=== PATIENT | male | born 1995 | race Caucasian/White ===

== ENCOUNTER 2024-09-20 21:29 | Inpatient (IN) | payer OTHER, SELFPAY ==
[2024-09-20 21:34] VITALS: BP 135/89; PULSE 76; RESP 18; TEMP 37.1; O2SAT 95
--- NOTE | 2024-09-20 21:45 | MHC.EDTECH ---
Patient BIBA and changed over with RN and Security.Vital signs completed. Patient in hospital gown and into [facility]. Belongings secured in POD [employer]OCKER 7. Belongings list completed
[2024-09-20 21:52] VITALS: BP 128/78; PULSE 103; PULSE 80; RESP 18; TEMP 37; O2SAT 100; BMI 25.7
--- NOTE | 2024-09-20 22:04 | PC.NURSE ---
patient reports he is often inconsistent w meds, ems listed off risperdal but client reports olanzapine, hydroxyzine. t/w completed person search/changeover which illustrated no injury to client, no presence of contraband.
[2024-09-21 00:38] LABS: MANUAL DIFF FLAG NO
[2024-09-21 00:41] LABS: Basophils Absolute Auto 0.1 X10*3/uL (0.0-0.2); Basophils Percent Auto 0.4 % (0-2); Eosinophils Absolute Auto 0.1 X10*3/uL (0.0-0.4); Eosinophils Percent Auto 0.4 % (0-4); Hematocrit 46.4 % (42.0-52.0); Hemoglobin 16.1 g/dl (14.0-18.0); Imm Gran Abs Auto 0.04 X10*3/uL (0.00-0.03); Imm Gran Pct Auto 0.3 % (0.0-0.4); Lymphocytes Absolute Auto 2.1 X10*3/uL (1.2-4.9); Lymphocytes Percent Auto 17.1 % (20-40); Mean Corpuscular HGB Conc 34.7 g/dl (31.0-36.0); Mean Corpuscular Hemoglobin 29.5 pg (27.0-33.0); Mean Platelet Volume 10.7 fL (9.4-12.4); Monocytes Absolute Auto 1.1 X10*3/uL (0.1-1.2); Monocytes Percent Auto 8.9 % (2-11); Neutrophils Absolute Auto 8.7 x10*3/uL (2.0-8.3); Neutrophils Percent Auto 72.9 % (45-73); Platelet Count 221 X10*3/uL (160-400); Red Blood Count 5.46 X10*6/uL (4.60-5.80); Red Cell Distribution Width 13.3 % (11.0-16.0)
--- NOTE | 2024-09-21 00:52 | ED_ITS ---
HPI - Psych General Chief Complaint: Psychiatric Symptoms Stated Complaint: SECT. 12, COMBATIVE/AGGRESSIVE @HOME Time Seen by Provider: 09/20/24 22:52 Source: patient and EMS Mode of arrival: EMS Limitations: no limitations History of Present Illness ED Provider: Dr. Zaida Cosme HPI Narrative: Patient comes to the emergency room via section 12 and accompanied by police department. According to PD, patient was very agitated, yelling that he was going to kill his parents. According to the patient, he has not been med compliant for several days. However, patient has not picked up his medications for the last 7 months. Patient denies SI or HI. When I asked the patient about the incident when he was yelling that he was going to hurt his parents, patient said that it was just anger and nonsense Related Data Home Medications ?Medication ?Instructions ?Recorded ?Confirmed hydroxyzine pamoate 50 mg capsule 50 mg PO TID PRN anxiety 09/21/24 09/21/24 olanzapine 7.5 mg tablet 7.5 mg PO BEDTIME 09/21/24 09/21/24 trazodone 50 mg tablet 75 mg PO BEDTIME PRN insomnia 09/21/24 09/21/24 Allergies Allergy/AdvReac Type Severity Reaction Status Date / Time No Known Allergies Allergy Verified 09/20/24 21:56 Review of Systems 2 Review of Systems: Constitutional : No Weight loss, No Fever, No Chills, No Night Sweats, No Fatigue, No Malaise ENT/Mouth : No Hearing loss, No Ear Pain, No Nasal Congestion, No Sinus Pain, No Hoarseness, No sore throat, No Rhinorrhea, No Swallowing Difficulty Eyes: No Eye Pain, No Swelling, No Redness, No Foreign Body, No Discharge, No Vision Changes Cardiovascular : No Chest Pain, No SOB, No Dyspnea on Exertion, No Orthopnea, No Edema, No Palpitations Respiratory : No Cough, No Sputum, No Wheezing, No Smoke Exposure, No Dyspnea Gastrointestinal : No Nausea, No Vomiting, No Diarrhea, No Constipation, No abdominal Pain, No Hematochezia, No Melena Genitourinary : no irregular bleeding, No Dysuria, No Urinary Frequency, No Hematuria, No Urinary Incontinence, No Urgency, No Flank Pain, No Urinary Flow Changes, No Hesitancy Musculoskeletal : No joint pain, No Myalgias, No Joint Swelling Skin : No Skin Lesions, No rash Neuro : No Weakness, No Numbness, No Paresthesias, No Loss of Consciousness, No Dizziness, No Headache Psych : Complaining of anxiety and depression, denies SI or HI. Heme/Lymph: No Bruising, No Bleeding,No Lymphadenopathy Endocrine : No Polyuria, No Polydipsia, No Temperature Intolerance [facility] Social History Social History Advance Directives: No Advance Directives Information Provided: No Do you have a plan to hurt others: No Plan Physical Exam 2 Vital Signs: Vital Signs: Last Vital Signs Temp 98.6 F 09/20/24 21:52 Pulse 103 H 09/20/24 21:52 Resp 18 09/20/24 21:52 BP 128/78 09/20/24 21:52 Pulse Ox 100 09/20/24 21:52 O2 Del Method Room Air 09/20/24 21:52 BMI result Body Mass Index 25.7 Const: Other: Appearance: Alert. Oriented X3. No acute distress. Calm, cooperative Eyes: Pupils equal, round and reactive to light. ENT: Pharynx normal. Neck: Normal inspection. Neck supple. No lymph nodes noted. No crepitus CVS: Normal heart rate and rhythm. Pulses normal. Normal S1 and S2 Respiratory: No respiratory distress. Breath sounds normal. No Wheezing. No rales Abdomen: Soft and nontender. No rigidity. No distention. Skin: Skin warm and dry. Normal skin color. Normal skin turgor. Extremities: No lower extremity edema. No Lacerations. No Rash Neuro: Oriented X 3. No motor deficit. No sensory deficit. Moving all extremities. No slurred speech. CN 2 through 12 grossly intact Psych: calm, cooperative, normal affect Medical Decision Making Medical Decision Making [facility] Narrative: My interpretation of labs: Patient's white blood cell count 12.0, rest of hematology normal. Urine toxicology positive for marijuana -care team consult evaluated the patient 01:50: Recommendations: Inpatient for schizophrenia -patient is on a Section 12 -sign out given to my colleage Dr. Orozco - Differential Diagnosis Differential Diagnoses: The differential diagnosis associated with the presentation includes (Anxiety, depression, polysubstance abuse, psychosis, schizophrenia) Admission/Observation Consideration of admission/observation: Escalation of care including admission/observation considered (Patient is on a Section 12, waiting to be seen by the care team to determine patient's disposition) Lab Data [facility] Lab Attestation statement: I reviewed the patient's lab results. 09/21/24 00:33 09/21/24 00:33 Labs: Lab Results 09/21/24 Range/Units 00:33 WBC 12.0 H (4.8-10.8) X10*3/uL RBC 5.46 (4.60-5.80) X10*6/uL Hgb 16.1 (14.0-18.0) g/dl Hct 46.4 (42.0-52.0) % MCV 85.0 (80.0-98.0) fL MCH 29.5 (27.0-33.0) pg MCHC 34.7 (31.0-36.0) g/dl RDW 13.3 (11.0-16.0) % Plt Count 221 (160-400) X10*3/uL MPV 10.7 (9.4-12.4) fL Immature Gran % (Auto) 0.3 (0.0-0.4) % Neut % (Auto) 72.9 (45-73) % Lymph % (Auto) 17.1 L (20-40) % [place] % (Auto) 8.9 (2-11) % Eos % (Auto) 0.4 (0-4) % Baso % (Auto) 0.4 (0-2) % Lymph # (Auto) 2.1 (1.2-4.9) X10*3/uL [place] # (Auto) 1.1 (0.1-1.2) X10*3/uL Eos # (Auto) 0.1 (0.0-0.4) X10*3/uL Baso # (Auto) 0.1 (0.0-0.2) X10*3/uL Abs Immat Gran (auto) 0.04 H (0.00-0.03) X10*3/uL Absolute Neuts (auto) 8.7 H (2.0-8.3) x10*3/uL Absolute Nucleated RBC 0.000 (0.0-0.012) X10*3/uL Nucleated RBC % (auto) 0.0 (0.0-0.2) /100WBC Sodium 141 (135-145) mmol/L Potassium 4.1 (3.3-5.1) mmol/L Chloride 108 (96-108) mmol/L Carbon Dioxide 23 (22-29) mmol/L Anion Gap 14 (12-20) BUN 6 L (9-16) mg/dL Creatinine 0.85 (0.5-1.4) mg/dL Estim Creat Clear Calc 144.9 Estimated GFR > 60 Random Glucose 79 (60-115) mg/dL Calcium 9.9 (8.4-10.2) mg/dL Total Bilirubin 2.3 H (0.0-1.0) mg/dL AST 19 (5-37) U/L ALT 10 (0-40) U/L Alkaline Phosphatase 64 (39-117) U/L Total Protein 7.4 (6.5-8.0) g/dL Albumin 4.5 (3.5-5.0) g/dL Salicylates < 5.0 L (15-30) mg/dL Urine Opiates Screen Not Detected (Not Detect) Ur Buprenorphine Scrn Not Detected (Not Detect) ng/mL Ur Oxycodone Screen Not Detected (Not Detect) ng/mL Urine Methadone Screen Not Detected (Not Detect) ng/mL Urine Fentanyl Screen Not Detected (Not Detect) Acetaminophen < 3 (<30) mcg/mL Ur Barbiturates Screen Not Detected (Not Detect) Ur Phencyclidine Scrn Not Detected (Not Detect) Ur Amphetamines Screen Not Detected (Not Detect) U Benzodiazepines Scrn Not Detected (Not Detect) Urine Cocaine Screen Not Detected (Not Detect) U Marijuana (THC) Screen POSITIVE H (Not Detect) Ethyl Alcohol < 10 mg/dL Critical Care Time Critical Care Time Critical Care Time: Yes Total Critical Care Time: 30 Attestation: I have personally provided critical care time. Time includes review of lab data, radiology results, discussion with consultants, and monitoring for potential decompensation. Intervention performed as documented. Discharge Plan Discharge Clinical Impression: Noncompliance with medications, Schizophrenia Patient Disposition: Still a Patient Prescriptions: No Action trazodone 50 mg tablet 75 mg PO BEDTIME PRN (Reason: insomnia) hydroxyzine pamoate 50 mg capsule 50 mg PO TID PRN (Reason: anxiety) olanzapine 7.5 mg tablet 7.5 mg PO BEDTIME Interventions: Apex-Suicide Risk Severity Scale Last Done: 09/20/24 22:55 Print Language: Mongolian
[2024-09-21 00:53] LABS: Amphetamine Screen Urine Not Detected (Not Detect); Barbiturates, Urine Not Detected (Not Detect); Benzodiazepines Screen Urine Not Detected (Not Detect); Buprenorphine Scr Not Detected (Not Detect); Cannabinoid Screen Urine POSITIVE (Not Detect); Cocaine Screen Urine Not Detected (Not Detect); Fentanyl, urine Not Detected (Not Detect); Methadone Screen, Urine Not Detected (Not Detect); Opiate Screen Urine Not Detected (Not Detect); Oxycodone Screen Urine Not Detected (Not Detect); Phencyclidine Screen Urine Not Detected (Not Detect)
[2024-09-21 00:57] LABS: Acetaminophen LAB < 3 mcg/mL (<30); Alanine Aminotransferase 10 U/L (0-40); Albumin Level 4.5 g/dL (3.5-5.0); Alkaline Phosphatase 64 U/L (39-117); Anion Gap 14 (12-20); Aspartate Amino Transferase 19 U/L (5-37); Bilirubin Total 2.3 mg/dL (0.0-1.0); Blood Urea Nitrogen 6 mg/dL (9-16); Calcium 9.9 mg/dL (8.4-10.2); Carbon Dioxide 23 mmol/L (22-29); Chloride 108 mmol/L (96-108); Creatinine Clr Calc Pharmacy 144.9; Estimated Glomerular Filt Rate > 60; Ethanol < 10 mg/dL; Glucose Random 79 mg/dL (60-115); Potassium 4.1 mmol/L (3.3-5.1); Salicylate < 5.0 mg/dL (15-30); Sodium 141 mmol/L (135-145); Total Protein 7.4 g/dL (6.5-8.0)
[2024-09-21] MEDS: traZODone HCL 50 MG TABLET PO ×2 (01:54→21:47)
[2024-09-21] MEDS: Nicotine Polacrilex 2 MG GUM BUCCAL ×2 (02:07→21:46)
--- NOTE | 2024-09-21 08:04 | ECG_ITS ---
Test Reason : PRE-ADMISSION Blood Pressure : / mmHG Vent. Rate : 052 BPM Atrial Rate : 052 BPM P-R Int : 140 ms QRS Dur : 094 ms QT Int : 414 ms P-R-T Axes : 029 029 013 degrees QTc Int : 385 ms Artifact in tracing Sinus bradycardia Otherwise normal ECG No previous ECGs available Referred By: Zaida Cosme Electronically Signed By:JORDY ARMENDARIZ
[2024-09-21 08:23] LABS: Appearance Urine Clear; Color Urine Yellow; Glucose Urine UA Negative (Negative); Leukocyte Esterase Urine Negative (Negative); Nitrite Urine Negative (Negative); PH 7.5 (5.0-9.0); Specific Gravity - Urine 1.015 (1.005-1.025); Urine Blood Negative (Negative); Urine Ketones 15 mg/dL (Negative); Urine Protein Trace mg/dL (Neg-Trace)
--- NOTE | 2024-09-21 08:24 | PHA.MEDREC ---
Pharmacy Consult ? Medication Reconciliation Pharmacy has completed the medication reconciliation, reviewed mec rec completed by nursing, all claims matched hx.
[2024-09-21 08:33] VITALS: BP 128/67; PULSE 53; RESP 16; TEMP 36.6; O2SAT 97
--- NOTE | 2024-09-21 10:21 | PC.NURSE ---
Pt has been calm and cooperative. Took AM meds w/o difficulty. Eating well. NAD. Denies SI at this time.
--- NOTE | 2024-09-21 11:22 | PC.NURSE ---
Assumed care of patient at 1045, patient appears to be in no apparent distress, sitting in room in 2, ambulated out to nurses station asking for water. patient aware of plan of care for inpatient bedsearch
[2024-09-21 15:14] VITALS: BP 142/87; PULSE 71; RESP 18; TEMP 36.6; O2SAT 97
[2024-09-21 17:50] VITALS: BP 152/76; PULSE 53; RESP 16; TEMP 36.4; O2SAT 98
[2024-09-21 18:24] VITALS: BMI 21.2
--- NOTE | 2024-09-21 19:01 | PC.ADMIT ---
Ciro is a 28 y/o male that was admitted to at 1750 from the Pod on 12b? for treatment of schizophrenia. Pt is currently unemployed and lives at home with his parents. Per crisis evaluation pt had vague SI and endorsed AH. Pt has a hx of IPOC at [facility] and multiple times in the past two years.? Pt was brought to the ER via ambulance after sec 12 via police/EMS. Pt was threatening to kill his parents. Pt has been medication non compliant for several days. Pt was not taking his olanzapine. Pt reported he was brought here because he was ?yelling loud nonsense in the bathroom?.Pt was A&O, calm and cooperative with admission process. Mood is anxious. Affect is anxious. Pt withdrawn and kept to self. Pt has hx of AH but currently denied,? denied VH. Pt denied SI or HI at this time. Pt denied self harming behaviors. Pt reported ?I don?t remember having any of those.? Pt reported normal weight at 215lb pt weighed 187lb, unsure of time span of weight loss, reported it was intentional, Pt was internally preoccupied and would look over his shoulder. Pt reported frequent lack of sleep and having trouble falling asleep. Pt had poor Focus. Pt avoided eye contact. Pt speech is pressured at times. At times thought blocked. Pt spoke quietly and pressured. Pt mumbled and was difficult to understand. Tox Screen was positive for THC, daily cannabis use. Pt was placed on 15 min checks for safety. Pt cooperative w/ skin check. Pt denied any medical issues.
[2024-09-21 20:00] VITALS: BP 134/69; PULSE 92; RESP 14; TEMP 36.7; O2SAT 96
[2024-09-22 07:40] VITALS: BP 107/57; PULSE 54; RESP 14; TEMP 36.4; O2SAT 97
--- NOTE | 2024-09-22 08:03 | HO.PSYADMNOT ---
HPI Date of Service: 09/22/24 Chief Complaint: Paranoid Agitation Sources of Information: patient interviewed, chart reviewed and crisis/core team assessment reviewed HPI Subjective Notes: Baldwin Warning and Section 12B Narrative: As per ED Note 09/20/24: Patient comes to the emergency room via section 12 and accompanied by police department. According to PD, patient was very agitated, yelling that he was going to kill his parents. According to the patient, he has not been med compliant for several days. However, patient has not picked up his medications for the last 7 months. Patient denies SI or HI. When I asked the patient about the incident when he was yelling that he was going to hurt his parents, patient said that it was just anger and nonsense Today: Presents as internally preoccupied, guarded, paranoid and endorses AH they say funny things sometimes (denied command). Also makes unusual hand gestures at times. Adamantly denies SI or HI I can say mean things sometimes, but not that . Ref admission circumstances I was a little loud taking a shower. Saying a bunch of nonsense . Unable to fully elaborate amd is thought disordered at times. Reports olanzapine 7.5mg in the past as needed if I cant sleep , has not taken x 1 week (noted ED notes ref scripts not picked up). Trazodone is helpful. Does not want to take olanzapine scheduled, but aware it will be offered in case he changes his mind. Past Psychiatric History: Chart- diagnosis of SCZ as per CARES team eval. Pt very guarded ref details. Denied history of silvestre, suicide attempts or violence. ?CHD services years ago . Inpt history but reluctant to discuss details or history- same with meds. Reports olanzapine 7.5mg in the past as needed if I cant sleep , has not taken x 1 week (noted ED notes ref scripts not picked up). Trazodone is helpful Medical Evaluation Reviewed: Yes [facility] Social History: Lives with parents and 2 adult siblings (27 and 23). Last worked at [employer] in Spring 2023. Single. No children. Denied legal issues. Substance History: denied. MJ positive Diagnostics Vital Signs (24Hr): Vital Signs - 24 hr 09/21/24 08:33 09/21/24 15:14 09/21/24 17:50 Temperature 97.8 F 98 F 97.6 F Pulse Rate 53 71 53 Respiratory Rate 16 18 16 Blood Pressure 128/67 142/87 H 152/76 H Pulse Oximetry 97 97 98 Oxygen Delivery Method Room Air Room Air Room Air 09/21/24 20:00 Temperature 98.0 F Pulse Rate 92 Respiratory Rate 14 Blood Pressure 134/69 Pulse Oximetry 96 Oxygen Delivery Method Room Air BMI result Body Mass Index 21.2 Labs 09/21/24 00:33 09/22/24 08:36 Labs: Laboratory Results - last 48 hr 09/21/24 00:33 WBC 12.0 H RBC 5.46 Hgb 16.1 Hct 46.4 MCV 85.0 MCH 29.5 MCHC 34.7 RDW 13.3 Plt Count 221 MPV 10.7 Immature Gran % (Auto) 0.3 Neut % (Auto) 72.9 Lymph % (Auto) 17.1 L [place] % (Auto) 8.9 Eos % (Auto) 0.4 Baso % (Auto) 0.4 Lymph # (Auto) 2.1 [place] # (Auto) 1.1 Eos # (Auto) 0.1 Baso # (Auto) 0.1 Abs Immat Gran (auto) 0.04 H Absolute Neuts (auto) 8.7 H Absolute Nucleated RBC 0.000 Nucleated RBC % (auto) 0.0 Sodium 141 Potassium 4.1 Chloride 108 Carbon Dioxide 23 Anion Gap 14 BUN 6 L Creatinine 0.85 Estim Creat Clear Calc 144.9 Estimated GFR > 60 Random Glucose 79 Calcium 9.9 Total Bilirubin 2.3 H AST 19 ALT 10 Alkaline Phosphatase 64 Total Protein 7.4 Albumin 4.5 Urine Color Yellow Urine Appearance Clear Urine pH 7.5 Ur Specific [place] 1.015 Urine Protein Trace Urine Glucose (UA) Negative Urine Ketones 15 Urine Blood Negative Urine Nitrite Negative Ur Leukocyte Esterase Negative Salicylates < 5.0 L Urine Opiates Screen Not Detected Ur Buprenorphine Scrn Not Detected Ur Oxycodone Screen Not Detected Urine Methadone Screen Not Detected Urine Fentanyl Screen Not Detected Acetaminophen < 3 Ur Barbiturates Screen Not Detected Ur Phencyclidine Scrn Not Detected Ur Amphetamines Screen Not Detected U Benzodiazepines Scrn Not Detected Urine Cocaine Screen Not Detected U Marijuana (THC) Screen POSITIVE H Ethyl Alcohol < 10 Meds/Allergies Meds Home Medications ?Medication ?Instructions ?Recorded ?Confirmed ?Type hydroxyzine pamoate 50 mg capsule 50 mg PO TID PRN anxiety 09/21/24 09/21/24 History olanzapine 7.5 mg tablet 7.5 mg PO BEDTIME 09/21/24 09/21/24 History trazodone 50 mg tablet 75 mg PO BEDTIME PRN insomnia 09/21/24 09/21/24 History Allergies Allergies Allergy/AdvReac Type Severity Reaction Status Date / Time No Known Allergies Allergy Verified 09/20/24 21:56 Mental Status Exam Mental Status Exam Patient Appearance: Appropriate Patient Orientation: Person, Place, Time and Situation Level of Consciousness: Awake Patient Behavior: Guarded Mood Description: Suspicious, Withdrawn and Flat Affect Description: Suspicious, Withdrawn and Flat Patient Cognition Impaired: No Ability to Follow Directions: Fair Speech Pattern: Mumbled Memory Description: Intact Hallucinations: Auditory Delusions: Paranoid Ideation (appears paranoid and guarded) Thought Process: Intact Thought Content: positive for Intact Judgement: Poor Assessment & Plan Assessment & Plan (1) Schizophrenia: Status: Acute Code(s): F20.9 - Schizophrenia, unspecified Plan Presents with paranoia, hallucinations, HI and agitation in context of med non adherence and established diagnosis of SCZ. Plan: 1) S12 and Baldwin warning 2) Offer olanzapine 7.5mg bedtime and trazodone 75mg Patient educated on: medication risk/benefits Informed Consent: understands Reason for continued inpatient stay Substantial Risk for: harm to others Statement Statement: I have reviewed the history and physical and performed a pertinent examination on my patient. No changes have occurred unless specified. If the History and Physical was not performed prior to admission, the Hospitalist's service will be consulted for completing the admission physical. Time Spent With Patient Time: Total time managing care of this patient today ____ minutes.
[2024-09-22 09:11] LABS: Alanine Aminotransferase 13 U/L (0-40); Albumin Level 4.6 g/dL (3.5-5.0); Alkaline Phosphatase 62 U/L (39-117); Anion Gap 15 (12-20); Aspartate Amino Transferase 16 U/L (5-37); Bilirubin Total 2.2 mg/dL (0.0-1.0); Blood Urea Nitrogen 9 mg/dL (9-16); Calcium 10.2 mg/dL (8.4-10.2); Carbon Dioxide 25 mmol/L (22-29); Chloride 106 mmol/L (96-108); Cholesterol 158 mg/dL (<200); Creatinine Clr Calc Pharmacy 116.8; Estimated Glomerular Filt Rate > 60; Glucose Fasting 106 mg/dL (60-99); HDL Cholesterol 58 mg/dL (>40); LDL Cholesterol Calculated 79 mg/dL (<100); Potassium 4.1 mmol/L (3.3-5.1); Sodium 142 mmol/L (135-145); Total Protein 7.8 g/dL (6.5-8.0); Triglycerides 109 mg/dL (<150)
[2024-09-22] MEDS: Nicotine Polacrilex 2 MG GUM BUCCAL ×4 (11:31→20:45)
[2024-09-22 20:00] VITALS: BP 142/74; PULSE 51; RESP 16; TEMP 36.9; O2SAT 99
[2024-09-22] MEDS: traZODone HCL 25 MG HALFTAB 75 MG PO (21:59)
[2024-09-23 07:45] VITALS: BP 110/58; PULSE 58; RESP 16; TEMP 36.4; O2SAT 96
--- NOTE | 2024-09-23 10:26 | P.PNPSI_ITS ---
Subjective Subjective Date of Service: 09/23/24 Reason For Visit: Paranoid Agitation Subjective Notes: Section 12B Interim History: [address] [address] Psychiatry Admission Note (In) Signed Patient: Ciro Britt MR#: [id number] : 1995 Acct:[id number] Declining olanzapine. Accepts trazodone. Intense and internally preoccupied, guarded, paranoid. Slept in sensory room. Did not want to discuss AH today. Adamantly denies SI or HI Medication Compliance: No Side effects from medications: No Attending Groups: No Review of Systems Acute medical concerns: No Review of Systems Review of Systems Yes all other systems are reviewed and are negative Mental Status Exam Mental Status Exam Patient Appearance: Appropriate Patient Orientation: Person, Place, Time and Situation Level of Consciousness: Awake Patient Behavior: Guarded Mood Description: Suspicious, Withdrawn and Flat Affect Description: Suspicious, Withdrawn and Flat Patient Cognition Impaired: No Ability to Follow Directions: Fair Speech Pattern: Mumbled Memory Description: Intact Diagnostics Vital Signs (24Hr): Vital Signs - 24 hr 09/22/24 20:00 09/23/24 07:45 Temperature 98.5 F 97.6 F Pulse Rate 51 58 Respiratory Rate 16 16 Blood Pressure 142/74 H 110/58 L Pulse Oximetry 99 96 Oxygen Delivery Method Room Air Room Air BMI result Body Mass Index 21.2 Labs 09/21/24 00:33 09/22/24 08:36 Labs: Laboratory Results - last 48 hr 09/22/24 08:36 Sodium 142 Potassium 4.1 Chloride 106 Carbon Dioxide 25 Anion Gap 15 BUN 9 Creatinine 0.91 Estim Creat Clear Calc 116.8 Estimated GFR > 60 Fasting Glucose 106 H Calcium 10.2 Total Bilirubin 2.2 H AST 16 ALT 13 Alkaline Phosphatase 62 Total Protein 7.8 Albumin 4.6 Triglycerides 109 Cholesterol 158 LDL Cholesterol, Calc 79 HDL Cholesterol 58 Medications Medications Current Medications Acetaminophen (Acetaminophen 325 Mg Tablet) 650 mg PO Q6H PRN PRN Reason: Headache/Pain Mild Scale (1-3) Al Hydroxide/Mg Hydroxide (Magnesium Hydrox/Alum Hydrox 30 Ml Oral.Susp) 30 ml PO Q6H PRN PRN Reason: Heartburn/Nausea Hydroxyzine HCl (Hydroxyzine Hcl 50 Mg Tablet) 50 mg PO TID PRN PRN Reason: anxiety Hydroxyzine HCl (Hydroxyzine Hcl 25 Mg Tablet) 25 mg PO Q6H PRN PRN Reason: Anxiety Lorazepam (Lorazepam 1 Mg Tablet) 1 mg PO Q4H PRN PRN Reason: anxiety/restlessness Magnesium Hydroxide (Milk Of Magnesia 30 Ml Oral.Susp) 30 ml PO DAILY PRN PRN Reason: Constipation Nicotine (Nicotine 14 Mg Patch.Td24) 14 mg TRANSDERMA DAILY PRN PRN Reason: Nicotine Cravings Nicotine Polacrilex (Nicotine Polacrilex 2 Mg Gum) 2 mg BUCCAL QID PRN PRN Reason: Nicotine Cravings Last Admin: 09/22/24 20:45 Dose: 2 mg Nicotine Polacrilex (Nicotine Polacrilex 2 Mg Gum) 2 mg BUCCAL Q2H PRN PRN Reason: Nicotine Cravings Last Admin: 09/22/24 17:54 Dose: 2 mg Olanzapine (Olanzapine 7.5 Mg Tablet) 7.5 mg PO BEDTIME CRISS Last Admin: 09/22/24 22:01 Dose: Not Given Olanzapine (Olanzapine 5 Mg Tablet) 5 mg PO BID PRN PRN Reason: Psychosis Trazodone HCl (Trazodone Hcl 25 Mg Halftab) 75 mg PO BEDTIME PRN PRN Reason: insomnia Last Admin: 09/22/24 21:59 Dose: 75 mg Trazodone HCl (Trazodone Hcl 50 Mg Tablet) 50 mg PO BEDTIME MRX1 PRN PRN Reason: Insomnia Last Admin: 09/21/24 21:47 Dose: 50 mg Allergies Allergies Allergy/AdvReac Type Severity Reaction Status Date / Time No Known Allergies Allergy Verified 09/20/24 21:56 Assessment & Plan Assessment & Plan (1) Schizophrenia: Status: Acute Code(s): F20.9 - Schizophrenia, unspecified Plan Presents with paranoia, hallucinations, HI and agitation in context of med non adherence and established diagnosis of SCZ. Plan: 1) S12 and Baldwin warning 2) Offer olanzapine 7.5mg bedtime and trazodone 75mg 09/23/24: encourage adherence to olanzapine 7.5mg bedtime Reason for continued inpatient stay Substantial Risk for: harm to others Time Spent With Patient Time: Total time managing care of this patient today ____ minutes.
[2024-09-23] MEDS: Nicotine Polacrilex 2 MG GUM BUCCAL (19:59)
[2024-09-23 20:35] VITALS: BP 128/71; PULSE 54; RESP 16; TEMP 36.9; O2SAT 97
[2024-09-24] MEDS: traZODone HCL 25 MG HALFTAB 75 MG PO (01:19)
[2024-09-24 07:30] VITALS: BP 121/60; PULSE 63; RESP 14; TEMP 36.4; O2SAT 98
--- NOTE | 2024-09-24 15:24 | MHC.CLN ---
NUTRITION CONSULT FOR RECENT WEIGHT LOSS. VISITED WITH PATIENT ON THE UNIT. ASKED ABOUT CURRENT WEIGHT/WEIGHT LOSS. REPORTS WEIGHT ABOUT 185#. APPEARS WELL NOURISHED AND SUSPECT THAT IS APPROX CURRENT WEIGHT. 09/21/24=152#; 09/20/24=195#. ERROR LIKELY IN RECENT RECORDED WEIGHT. LIMITED CONVERSATION DUE TO PATIENT'S ANXIETY. NO DIET CONCERNS EXPRESSED BY PATIENT. CONTINUE REGULAR DIET.
[2024-09-24] MEDS: Nicotine Polacrilex 2 MG GUM BUCCAL (16:47)
--- NOTE | 2024-09-24 16:58 | HO.PSYCHPN ---
Subjective Subjective Date of Service: 09/24/24 Reason For Visit: Paranoid Agitation Subjective Notes: Section 12B Healthcare Proxy: No Interim History: Pt seen in psych f/u chart reviewed. Pt does not wish to sign cv does not feel he needs psychiatric medication refusing olanzapine discussed sec 12 reminded pt of baldwin warning and differnet options . pt denies si hi will not take anything except trazadone . Mostly isolative Medication Compliance: Intermittent Mental Status Exam Mental Status Exam Patient Appearance: Appropriate Patient Orientation: Person, Place, Time and Situation Level of Consciousness: Awake Patient Behavior: Guarded Mood Description: Suspicious, Withdrawn and Flat Affect Description: Suspicious, Withdrawn and Flat Patient Cognition Impaired: No Ability to Follow Directions: Fair Speech Pattern: Mumbled Memory Description: Intact Diagnostics Vital Signs (24Hr): Vital Signs - 24 hr 09/23/24 20:35 09/24/24 07:30 Temperature 98.4 F 97.5 F Pulse Rate 54 63 Respiratory Rate 16 14 Blood Pressure 128/71 121/60 Pulse Oximetry 97 98 Oxygen Delivery Method Room Air Room Air BMI result Body Mass Index 21.2 Labs 09/21/24 00:33 09/22/24 08:36 Medications Medications Current Medications Acetaminophen (Acetaminophen 325 Mg Tablet) 650 mg PO Q6H PRN PRN Reason: Headache/Pain Mild Scale (1-3) Al Hydroxide/Mg Hydroxide (Magnesium Hydrox/Alum Hydrox 30 Ml Oral.Susp) 30 ml PO Q6H PRN PRN Reason: Heartburn/Nausea Hydroxyzine HCl (Hydroxyzine Hcl 50 Mg Tablet) 50 mg PO TID PRN PRN Reason: anxiety Hydroxyzine HCl (Hydroxyzine Hcl 25 Mg Tablet) 25 mg PO Q6H PRN PRN Reason: Anxiety Lorazepam (Lorazepam 1 Mg Tablet) 1 mg PO Q4H PRN PRN Reason: anxiety/restlessness Magnesium Hydroxide (Milk Of Magnesia 30 Ml Oral.Susp) 30 ml PO DAILY PRN PRN Reason: Constipation Nicotine (Nicotine 14 Mg Patch.Td24) 14 mg TRANSDERMA DAILY PRN PRN Reason: Nicotine Cravings Nicotine Polacrilex (Nicotine Polacrilex 2 Mg Gum) 2 mg BUCCAL QID PRN PRN Reason: Nicotine Cravings Last Admin: 09/23/24 19:59 Dose: 2 mg Nicotine Polacrilex (Nicotine Polacrilex 2 Mg Gum) 2 mg BUCCAL Q2H PRN PRN Reason: Nicotine Cravings Last Admin: 09/24/24 16:47 Dose: 2 mg Olanzapine (Olanzapine 5 Mg Tablet) 5 mg PO BID PRN PRN Reason: Psychosis Olanzapine (Olanzapine 10 Mg Tablet) 10 mg PO BEDTIME CRISS Trazodone HCl (Trazodone Hcl 25 Mg Halftab) 75 mg PO BEDTIME PRN PRN Reason: insomnia Last Admin: 09/24/24 01:19 Dose: 75 mg Trazodone HCl (Trazodone Hcl 50 Mg Tablet) 50 mg PO BEDTIME MRX1 PRN PRN Reason: Insomnia Last Admin: 09/21/24 21:47 Dose: 50 mg Allergies Allergies Allergy/AdvReac Type Severity Reaction Status Date / Time No Known Allergies Allergy Verified 09/20/24 21:56 Assessment & Plan Assessment & Plan (1) Schizophrenia: Status: Acute Code(s): F20.9 - Schizophrenia, unspecified Plan Presents with paranoia, hallucinations, HI and agitation in context of med non adherence and established diagnosis of SCZ. Plan: 1) S12 and Baldwin warning 2) Offer olanzapine 7.5mg bedtime and trazodone 75mg 09/23/24: encourage adherence to olanzapine 7.5mg bedtime 09/24/24 No current insight isolative mumbling refusing medication for psychosis Reason for continued inpatient stay Substantial Risk for: harm to others and inability to function Time Spent With Patient Time: Total time managing care of this patient today ____ minutes.
[2024-09-24 20:00] VITALS: BP 124/70; PULSE 55; RESP 16; TEMP 36.9; O2SAT 97
[2024-09-24] MEDS: traZODone HCL 50 MG TABLET PO (22:54)
[2024-09-25 07:33] VITALS: BP 116/68; PULSE 52; RESP 16; TEMP 36.4; O2SAT 98
--- NOTE | 2024-09-25 09:54 | HO.PSYCHPN ---
Subjective Subjective Date of Service: 09/25/24 Reason For Visit: Paranoid Agitation Subjective Notes: Section 12B Healthcare Proxy: No Medical Problems Affecting Mental Status: No Interim History: Patient remains on a section 12 B attempts to reach his parents have not succeeded initially and pt remains isolated guarded mumbling to himself refusing olanzapine. His father did state that he felt his son was quite ill had difficult time taking care of himself , needed to be watched felt he was at risk of harm and that pt had threatened to harm them . Pt does not agree to tx Medication Compliance: No Side effects from medications: No Mental Status Exam Mental Status Exam Patient Orientation: Person and Place Level of Consciousness: Awake Patient Behavior: Guarded, Passive and Suspicious Mood Description: Suspicious, Withdrawn, Flat and Apprehensive Affect Description: Suspicious, Withdrawn and Flat Patient Cognition Impaired: No Ability to Follow Directions: Fair Speech Pattern: Whisper, Mumbled and Poor Articulation Hallucinations: Auditory (would not describe ) Perceptual Disturbances: Illusions Thought Process: Distracted and Slowed Thinking Thought Content: positive for Thought Blocking, negative for Suicidal Ideation or negative for Homicidal Ideation Depressive Symptoms: Increased Anxiety Abnormal Motor Activity Signs and Symptoms: Psychomotor Retardation Judgement: Poor Judgement and Insight: very limited informationally explained legal status pt cannot really describe what happened prior to adm becomes digressive TB internally preoccupied Diagnostics Vital Signs (24Hr): Vital Signs - 24 hr 09/24/24 20:00 09/25/24 07:33 Temperature 98.4 F 97.5 F Pulse Rate 55 52 Respiratory Rate 16 16 Blood Pressure 124/70 116/68 Pulse Oximetry 97 98 Oxygen Delivery Method Room Air BMI result Body Mass Index 21.2 Labs 09/21/24 00:33 09/22/24 08:36 Medications Medications Current Medications Acetaminophen (Acetaminophen 325 Mg Tablet) 650 mg PO Q6H PRN PRN Reason: Headache/Pain Mild Scale (1-3) Al Hydroxide/Mg Hydroxide (Magnesium Hydrox/Alum Hydrox 30 Ml Oral.Susp) 30 ml PO Q6H PRN PRN Reason: Heartburn/Nausea Hydroxyzine HCl (Hydroxyzine Hcl 50 Mg Tablet) 50 mg PO TID PRN PRN Reason: anxiety Hydroxyzine HCl (Hydroxyzine Hcl 25 Mg Tablet) 25 mg PO Q6H PRN PRN Reason: Anxiety Lorazepam (Lorazepam 1 Mg Tablet) 1 mg PO Q4H PRN PRN Reason: anxiety/restlessness Magnesium Hydroxide (Milk Of Magnesia 30 Ml Oral.Susp) 30 ml PO DAILY PRN PRN Reason: Constipation Nicotine (Nicotine 14 Mg Patch.Td24) 14 mg TRANSDERMA DAILY PRN PRN Reason: Nicotine Cravings Nicotine Polacrilex (Nicotine Polacrilex 2 Mg Gum) 2 mg BUCCAL QID PRN PRN Reason: Nicotine Cravings Last Admin: 09/23/24 19:59 Dose: 2 mg Nicotine Polacrilex (Nicotine Polacrilex 2 Mg Gum) 2 mg BUCCAL Q2H PRN PRN Reason: Nicotine Cravings Last Admin: 09/24/24 16:47 Dose: 2 mg Olanzapine (Olanzapine 5 Mg Tablet) 5 mg PO BID PRN PRN Reason: Psychosis Olanzapine (Olanzapine 10 Mg Tablet) 10 mg PO BEDTIME CRISS Last Admin: 09/24/24 22:53 Dose: Not Given Trazodone HCl (Trazodone Hcl 25 Mg Halftab) 75 mg PO BEDTIME PRN PRN Reason: insomnia Last Admin: 09/24/24 01:19 Dose: 75 mg Trazodone HCl (Trazodone Hcl 50 Mg Tablet) 50 mg PO BEDTIME MRX1 PRN PRN Reason: Insomnia Last Admin: 09/24/24 22:54 Dose: 50 mg Allergies Allergies Allergy/AdvReac Type Severity Reaction Status Date / Time No Known Allergies Allergy Verified 09/20/24 21:56 Assessment & Plan Assessment & Plan (1) Schizophrenia: Status: Acute Code(s): F20.9 - Schizophrenia, unspecified (2) Chronic schizophrenia with acute exacerbation: Status: Acute Code(s): F20.9 - Schizophrenia, unspecified (3) Noncompliance with medications: Status: Acute Code(s): Z91.148 - Patient's other noncompliance with medication regimen for other reason Plan Presents with paranoia, hallucinations, HI and agitation in context of med non adherence and established diagnosis of SCZ. Plan: 1) S12 and Baldwin warning 2) Offer olanzapine 7.5mg bedtime and trazodone 75mg 09/23/24: encourage adherence to olanzapine 7.5mg bedtime 09/24/24 No current insight isolative mumbling refusing medication for psychosis 09/25/24 Was able to get secondary info from father pt had been threatening also quite disorganized mumbling difficulty taking care of himself does not recognize his psychiatric condition or need for tx will most likely file for commitment encourage tx compliance Reason for continued inpatient stay Substantial Risk for: harm to others, inability to function and rapid decompensation Time Spent With Patient Time: Total time managing care of this patient today ____ minutes.
[2024-09-25] MEDS: Nicotine Polacrilex 2 MG GUM BUCCAL ×2 (16:05→22:24)
[2024-09-25 20:00] VITALS: BP 132/62; PULSE 65; RESP 16; TEMP 36.3; O2SAT 96
[2024-09-25] MEDS: traZODone HCL 50 MG TABLET PO (22:15)
[2024-09-25] MEDS: LORazepam 1 MG TABLET PO (22:19)
[2024-09-26 08:00] VITALS: BP 113/57; PULSE 61; RESP 14; TEMP 36.3; O2SAT 97
--- NOTE | 2024-09-26 11:00 | HO.PSYCHPN ---
Subjective Subjective Date of Service: 09/26/24 Reason For Visit: Paranoid Agitation Subjective Notes: Section 7 Healthcare Proxy: No Interim History: Patient seen psychiatric follow-up. Case reviewed extensively with treatment team. Information reviewed from patient's family regarding potential dangerousness and behavior prior to admission. Patient adamantly continues to want to be discharged very limited informationally Will not engage regarding treatment issues does appear to understand legal process Mental Status Exam Mental Status Exam Narrative: Patient casually dressed somewhat isolative limited engagement was able to state that he wants to leave the hospital did not feel he needed psychiatric treatment had no real explanations regarding behavior prior to admission threats bizarre behavior has not been aggressive or threatening in this setting does admit to hallucinations but will not engage regarding this somewhat anxious and flat denies SI HI Diagnostics Vital Signs (24Hr): Vital Signs - 24 hr 09/25/24 20:00 09/26/24 08:00 Temperature 97.4 F 97.4 F Pulse Rate 65 61 Respiratory Rate 16 14 Blood Pressure 132/62 113/57 L Pulse Oximetry 96 97 Oxygen Delivery Method Room Air Room Air BMI result Body Mass Index 21.2 Labs 09/21/24 00:33 09/22/24 08:36 Medications Medications Current Medications Acetaminophen (Acetaminophen 325 Mg Tablet) 650 mg PO Q6H PRN PRN Reason: Headache/Pain Mild Scale (1-3) Al Hydroxide/Mg Hydroxide (Magnesium Hydrox/Alum Hydrox 30 Ml Oral.Susp) 30 ml PO Q6H PRN PRN Reason: Heartburn/Nausea Hydroxyzine HCl (Hydroxyzine Hcl 25 Mg Tablet) 25 mg PO Q6H PRN PRN Reason: Anxiety Lorazepam (Lorazepam 1 Mg Tablet) 1 mg PO Q4H PRN PRN Reason: anxiety/restlessness Last Admin: 09/25/24 22:19 Dose: 1 mg Magnesium Hydroxide (Milk Of Magnesia 30 Ml Oral.Susp) 30 ml PO DAILY PRN PRN Reason: Constipation Nicotine (Nicotine 14 Mg Patch.Td24) 14 mg TRANSDERMA DAILY PRN PRN Reason: Nicotine Cravings Nicotine Polacrilex (Nicotine Polacrilex 2 Mg Gum) 2 mg BUCCAL QID PRN PRN Reason: Nicotine Cravings Last Admin: 09/25/24 22:24 Dose: 2 mg Nicotine Polacrilex (Nicotine Polacrilex 2 Mg Gum) 2 mg BUCCAL Q2H PRN PRN Reason: Nicotine Cravings Last Admin: 09/24/24 16:47 Dose: 2 mg Olanzapine (Olanzapine 5 Mg Tablet) 5 mg PO BID PRN PRN Reason: Psychosis Olanzapine (Olanzapine 10 Mg Tablet) 10 mg PO BEDTIME CRISS Last Admin: 09/25/24 20:41 Dose: Not Given Trazodone HCl (Trazodone Hcl 25 Mg Halftab) 75 mg PO BEDTIME PRN PRN Reason: insomnia Last Admin: 09/24/24 01:19 Dose: 75 mg Allergies Allergies Allergy/AdvReac Type Severity Reaction Status Date / Time No Known Allergies Allergy Verified 09/20/24 21:56 Assessment & Plan Assessment & Plan (1) Schizophrenia: Status: Acute Code(s): F20.9 - Schizophrenia, unspecified (2) Chronic schizophrenia with acute exacerbation: Status: Acute Code(s): F20.9 - Schizophrenia, unspecified (3) Noncompliance with medications: Status: Acute Code(s): Z91.148 - Patient's other noncompliance with medication regimen for other reason Plan Presents with paranoia, hallucinations, HI and agitation in context of med non adherence and established diagnosis of SCZ. Plan: 1) S12 and Baldwin warning 2) Offer olanzapine 7.5mg bedtime and trazodone 75mg 09/23/24: encourage adherence to olanzapine 7.5mg bedtime 09/24/24 No current insight isolative mumbling refusing medication for psychosis 09/25/24 Was able to get secondary info from father pt had been threatening also quite disorganized mumbling difficulty taking care of himself does not recognize his psychiatric condition or need for tx will most likely file for commitment encourage tx compliance 09/26/[address]work filled out for court filing both mother and patient's father reports disorganized intrusive bizarre behavior intrusive with individuals yellows yelling screaming threatening grossly disorganized File for civil commitment and treatment plan family supportive Reason for continued inpatient stay Substantial Risk for: harm to others, inability to function and rapid decompensation Time Spent With Patient Time: Total time managing care of this patient today ____ minutes.
[2024-09-26] MEDS: LORazepam 1 MG TABLET PO ×2 (15:44→21:22)
[2024-09-26 19:05] VITALS: BP 116/64; PULSE 78; RESP 18; TEMP 36.3; O2SAT 98
[2024-09-26] MEDS: traZODone HCL 25 MG HALFTAB 75 MG PO (21:22)
[2024-09-27 07:00] VITALS: BMI 26.0
[2024-09-27 08:00] VITALS: BP 115/60; PULSE 71; RESP 18; TEMP 36.2; O2SAT 96
--- NOTE | 2024-09-27 10:38 | P.PNPSI_ITS ---
Subjective Subjective Date of Service: 09/27/24 Reason For Visit: Paranoid Agitation Subjective Notes: Section 7 Guardianship: No Interim History: Patient withdrawn isolative minimal engagement continues to refuse any antipsychotic medication Difficult to engage with does not feel has any mental illness does not wish outpatient treatment Mental Status Exam Mental Status Exam Narrative: Patient casually dressed guarded with thought blocking poverty of content mood anxious restricted affect denies hallucinations poverty of content thought blocking noted is focused on not having a mental illness or needing medication insight severely limited impulse control intact in this setting Diagnostics Vital Signs (24Hr): Vital Signs - 24 hr 09/26/24 19:05 09/27/24 08:00 Temperature 97.4 F 97.1 F Pulse Rate 78 71 Respiratory Rate 18 18 Blood Pressure 116/64 115/60 Pulse Oximetry 98 96 Oxygen Delivery Method Room Air Room Air BMI result Body Mass Index 21.2 Labs 09/21/24 00:33 09/22/24 08:36 Medications Medications Current Medications Acetaminophen (Acetaminophen 325 Mg Tablet) 650 mg PO Q6H PRN PRN Reason: Headache/Pain Mild Scale (1-3) Al Hydroxide/Mg Hydroxide (Magnesium Hydrox/Alum Hydrox 30 Ml Oral.Susp) 30 ml PO Q6H PRN PRN Reason: Heartburn/Nausea Hydroxyzine HCl (Hydroxyzine Hcl 25 Mg Tablet) 25 mg PO Q6H PRN PRN Reason: Anxiety Lorazepam (Lorazepam 1 Mg Tablet) 1 mg PO Q4H PRN PRN Reason: anxiety/restlessness Last Admin: 09/26/24 21:22 Dose: 1 mg Magnesium Hydroxide (Milk Of Magnesia 30 Ml Oral.Susp) 30 ml PO DAILY PRN PRN Reason: Constipation Nicotine (Nicotine 14 Mg Patch.Td24) 14 mg TRANSDERMA DAILY PRN PRN Reason: Nicotine Cravings Nicotine Polacrilex (Nicotine Polacrilex 2 Mg Gum) 2 mg BUCCAL QID PRN PRN Reason: Nicotine Cravings Last Admin: 09/25/24 22:24 Dose: 2 mg Nicotine Polacrilex (Nicotine Polacrilex 2 Mg Gum) 2 mg BUCCAL Q2H PRN PRN Reason: Nicotine Cravings Last Admin: 09/24/24 16:47 Dose: 2 mg Olanzapine (Olanzapine 5 Mg Tablet) 5 mg PO BID PRN PRN Reason: Psychosis Olanzapine (Olanzapine 10 Mg Tablet) 10 mg PO BEDTIME CRISS Last Admin: 09/26/24 21:24 Dose: Not Given Paliperidone (Paliperidone Er 3 Mg Tab.Er.24) 3 mg PO DAILY CRISS Trazodone HCl (Trazodone Hcl 25 Mg Halftab) 75 mg PO BEDTIME PRN PRN Reason: insomnia Last Admin: 09/26/24 21:22 Dose: 75 mg Allergies Allergies Allergy/AdvReac Type Severity Reaction Status Date / Time No Known Allergies Allergy Verified 09/20/24 21:56 Assessment & Plan Assessment & Plan (1) Schizophrenia: Status: Acute Code(s): F20.9 - Schizophrenia, unspecified (2) Chronic schizophrenia with acute exacerbation: Status: Acute Code(s): F20.9 - Schizophrenia, unspecified (3) Noncompliance with medications: Status: Acute Code(s): Z91.148 - Patient's other noncompliance with medication regimen for other reason Plan Presents with paranoia, hallucinations, HI and agitation in context of med non adherence and established diagnosis of SCZ. Plan: 1) S12 and Baldwin warning 2) Offer olanzapine 7.5mg bedtime and trazodone 75mg 09/23/24: encourage adherence to olanzapine 7.5mg bedtime 09/24/24 No current insight isolative mumbling refusing medication for psychosis 09/25/24 Was able to get secondary info from father pt had been threatening also quite disorganized mumbling difficulty taking care of himself does not recognize his psychiatric condition or need for tx will most likely file for commitment encourage tx compliance 09/26/2024 [address]work filled out for court filing both mother and patient's father reports disorganized intrusive bizarre behavior intrusive with individuals yellows yelling screaming threatening grossly disorganized File for civil commitment and treatment plan family supportive 09/27/2024 Encourage therapeutic [place] have prescribed Invega with hope of eventually long-acting injectable patient continues guarded apprehensive poor insight and judgment Reason for continued inpatient stay Substantial Risk for: inability to function and rapid decompensation Time Spent With Patient Time: Total time managing care of this patient today ____ minutes.
[2024-09-27 20:00] VITALS: BP 137/79; PULSE 67; RESP 16; TEMP 36.7; O2SAT 97
[2024-09-27] MEDS: LORazepam 1 MG TABLET PO (20:00)
[2024-09-27] MEDS: Nicotine Polacrilex 2 MG GUM BUCCAL (20:00)
[2024-09-28 07:43] VITALS: BP 116/57; PULSE 77; RESP 16; TEMP 36.9; O2SAT 99
[2024-09-28] MEDS: Nicotine Polacrilex 2 MG GUM BUCCAL (15:21)
[2024-09-28] MEDS: LORazepam 1 MG TABLET PO (15:25)
[2024-09-28 20:04] VITALS: BP 118/79; PULSE 80; TEMP 35.9; O2SAT 98
--- NOTE | 2024-09-28 22:13 | P.PNPSI_ITS ---
Subjective Subjective Date of Service: 09/28/24 Reason For Visit: Paranoid Agitation Subjective Notes: Section 7 Guardianship: No Interim History: Patient withdrawn isolative minimal engagement continues to refuse any antipsychotic medication generally isolated not engaging Mental Status Exam Mental Status Exam Narrative: Patient casually dressed anxious in appearance restricted affect poverty of content thought blocking minimally informational insight severely limited impulse control intact in this setting no gross si hi Diagnostics Vital Signs (24Hr): Vital Signs - 24 hr 09/28/24 07:43 09/28/24 20:04 Temperature 98.5 F 96.7 F L Pulse Rate 77 80 Respiratory Rate 16 Blood Pressure 116/57 L 118/79 Pulse Oximetry 99 98 Oxygen Delivery Method Room Air Room Air BMI result Body Mass Index 26.0 Labs 09/21/24 00:33 09/22/24 08:36 Medications Medications Current Medications Acetaminophen (Acetaminophen 325 Mg Tablet) 650 mg PO Q6H PRN PRN Reason: Headache/Pain Mild Scale (1-3) Al Hydroxide/Mg Hydroxide (Magnesium Hydrox/Alum Hydrox 30 Ml Oral.Susp) 30 ml PO Q6H PRN PRN Reason: Heartburn/Nausea Hydroxyzine HCl (Hydroxyzine Hcl 25 Mg Tablet) 25 mg PO Q6H PRN PRN Reason: Anxiety Lorazepam (Lorazepam 1 Mg Tablet) 1 mg PO Q4H PRN PRN Reason: anxiety/restlessness Last Admin: 09/28/24 15:25 Dose: 1 mg Magnesium Hydroxide (Milk Of Magnesia 30 Ml Oral.Susp) 30 ml PO DAILY PRN PRN Reason: Constipation Olanzapine (Olanzapine 5 Mg Tablet) 5 mg PO BID PRN PRN Reason: Psychosis Paliperidone (Paliperidone Er 3 Mg Tab.Er.24) 3 mg PO DAILY CRISS Last Admin: 09/28/24 08:56 Dose: Not Given Trazodone HCl (Trazodone Hcl 25 Mg Halftab) 75 mg PO BEDTIME PRN PRN Reason: insomnia Last Admin: 09/26/24 21:22 Dose: 75 mg Allergies Allergies Allergy/AdvReac Type Severity Reaction Status Date / Time No Known Allergies Allergy Verified 09/20/24 21:56 Assessment & Plan Assessment & Plan (1) Schizophrenia: Status: Acute Code(s): F20.9 - Schizophrenia, unspecified (2) Chronic schizophrenia with acute exacerbation: Status: Acute Code(s): F20.9 - Schizophrenia, unspecified (3) Noncompliance with medications: Status: Acute Code(s): Z91.148 - Patient's other noncompliance with medication regimen for other reason Plan Presents with paranoia, hallucinations, HI and agitation in context of med non adherence and established diagnosis of SCZ. Plan: 1) S12 and Baldwin warning 2) Offer olanzapine 7.5mg bedtime and trazodone 75mg 09/23/24: encourage adherence to olanzapine 7.5mg bedtime 09/24/24 No current insight isolative mumbling refusing medication for psychosis 09/25/24 Was able to get secondary info from father pt had been threatening also quite disorganized mumbling difficulty taking care of himself does not recognize his psychiatric condition or need for tx will most likely file for commitment encourage tx compliance 09/26/20[address]work filled out for court filing both mother and patient's father reports disorganized intrusive bizarre behavior intrusive with individuals yellows yelling screaming threatening grossly disorganized File for civil commitment and treatment plan family supportive 09/27/2024 Encourage therapeutic [place] have prescribed Invega with hope of eventually long-acting injectable patient continues guarded apprehensive poor insight and judgment 09/28/24 encourage tx compliance encourage invega Reason for continued inpatient stay Substantial Risk for: inability to function and rapid decompensation Time Spent With Patient Time: Total time managing care of this patient today ____ minutes.
[2024-09-29 07:35] VITALS: BP 123/77; PULSE 54; RESP 14; TEMP 36.5; O2SAT 97
--- NOTE | 2024-09-29 11:32 | P.PNPSI_ITS ---
Subjective Subjective Date of Service: 09/29/24 Reason For Visit: Paranoid Agitation Interim History: Patient withdrawn isolative minimal engagement. Guarded and paranoid. Spends time alone in the sensory room with the lights off. He appears tense, anxious and internally preoccupied. Vague and circumstantial answers as to reason for admission and refusal of medications. Review of Systems Review of Systems Constitutional : No Weight loss, No Fever, No Chills, No Night Sweats, No Fatigue, No Malaise ENT/Mouth : No Hearing loss, No Ear Pain, No Nasal Congestion, No Sinus Pain, No Hoarseness, No sore throat, No Rhinorrhea, No Swallowing Difficulty Eyes: No Eye Pain, No Swelling, No Redness, No Foreign Body, No Discharge, No Vision Changes Cardiovascular : No Chest Pain, No SOB, No Dyspnea on Exertion, No Orthopnea, No Edema, No Palpitations Respiratory : No Cough, No Sputum, No Wheezing, No Smoke Exposure, No Dyspnea Gastrointestinal : No Nausea, No Vomiting, No Diarrhea, No Constipation, No abdominal Pain, No Hematochezia, No Melena Genitourinary : no irregular bleeding, No Dysuria, No Urinary Frequency, No Hematuria, No Urinary Incontinence, No Urgency, No Flank Pain, No Urinary Flow Changes, No Hesitancy Musculoskeletal : No joint pain, No Myalgias, No Joint Swelling Skin : No Skin Lesions, No rash Neuro : No Weakness, No Numbness, No Paresthesias, No Loss of Consciousness, No Dizziness, No Headache Psych : Complaining of anxiety and depression, denies SI or HI. Heme/Lymph: No Bruising, No Bleeding,No Lymphadenopathy Endocrine : No Polyuria, No Polydipsia, No Temperature Intolerance Yes all other systems are reviewed and are negative Mental Status Exam Mental Status Exam Narrative: Patient casually dressed anxious in appearance restricted affect poverty of content thought blocking minimally informational insight severely limited impulse control intact in this setting no gross si hi Patient Appearance: Appropriate Patient Orientation: Person and Place Level of Consciousness: Awake Patient Behavior: Guarded, Passive and Suspicious Mood Description: Suspicious, Withdrawn, Flat and Apprehensive Affect Description: Suspicious, Withdrawn and Flat Patient Cognition Impaired: No Ability to Follow Directions: Fair Speech Pattern: Whisper, Mumbled and Poor Articulation Memory Description: Intact Diagnostics Vital Signs (24Hr): Vital Signs - 24 hr 09/28/24 20:04 09/29/24 07:35 Temperature 96.7 F L 97.7 F Pulse Rate 80 54 Respiratory Rate 14 Blood Pressure 118/79 123/77 Pulse Oximetry 98 97 Oxygen Delivery Method Room Air Room Air BMI result Body Mass Index 26.0 Labs 09/21/24 00:33 09/22/24 08:36 Medications Medications Current Medications Acetaminophen (Acetaminophen 325 Mg Tablet) 650 mg PO Q6H PRN PRN Reason: Headache/Pain Mild Scale (1-3) Al Hydroxide/Mg Hydroxide (Magnesium Hydrox/Alum Hydrox 30 Ml Oral.Susp) 30 ml PO Q6H PRN PRN Reason: Heartburn/Nausea Hydroxyzine HCl (Hydroxyzine Hcl 25 Mg Tablet) 25 mg PO Q6H PRN PRN Reason: Anxiety Lorazepam (Lorazepam 1 Mg Tablet) 1 mg PO Q4H PRN PRN Reason: anxiety/restlessness Last Admin: 09/28/24 15:25 Dose: 1 mg Magnesium Hydroxide (Milk Of Magnesia 30 Ml Oral.Susp) 30 ml PO DAILY PRN PRN Reason: Constipation Olanzapine (Olanzapine 5 Mg Tablet) 5 mg PO BID PRN PRN Reason: Psychosis Paliperidone (Paliperidone Er 3 Mg Tab.Er.24) 3 mg PO DAILY CRISS Last Admin: 09/29/24 09:08 Dose: Not Given Trazodone HCl (Trazodone Hcl 25 Mg Halftab) 75 mg PO BEDTIME PRN PRN Reason: insomnia Last Admin: 09/26/24 21:22 Dose: 75 mg Allergies Allergies Allergy/AdvReac Type Severity Reaction Status Date / Time No Known Allergies Allergy Verified 09/20/24 21:56 Assessment & Plan Assessment & Plan (1) Schizophrenia: Status: Acute Code(s): F20.9 - Schizophrenia, unspecified (2) Chronic schizophrenia with acute exacerbation: Status: Acute Code(s): F20.9 - Schizophrenia, unspecified (3) Noncompliance with medications: Status: Acute Code(s): Z91.148 - Patient's other noncompliance with medication regimen for other reason Plan Presents with paranoia, hallucinations, HI and agitation in context of med non adherence and established diagnosis of SCZ. Plan: 1) S12 and Baldwin warning 2) Offer olanzapine 7.5mg bedtime and trazodone 75mg 09/23/24: encourage adherence to olanzapine 7.5mg bedtime 09/24/24 No current insight isolative mumbling refusing medication for psychosis 09/25/24 Was able to get secondary info from father pt had been threatening also quite disorganized mumbling difficulty taking care of himself does not recognize his psychiatric condition or need for tx will most likely file for commitment encourage tx compliance 09/26/20[address]work filled out for court filing both mother and patient's father reports disorganized intrusive bizarre behavior intrusive with individuals yellows yelling screaming threatening grossly disorganized File for civil commitment and treatment plan family supportive 09/27/2024 Encourage therapeutic [place] have prescribed Invega with hope of eventually long-acting injectable patient continues guarded apprehensive poor insight and judgment 09/28/24 encourage tx compliance encourage invega 09/29: Continues psychotic and refusing treatment. Continue current management and treatment plan. Reason for continued inpatient stay Substantial Risk for: harm to others, inability to function and rapid decompensation Time Spent With Patient Time: Total time managing care of this patient today ____ minutes.
[2024-09-29] MEDS: LORazepam 1 MG TABLET PO (18:50)
[2024-09-29 19:27] VITALS: BP 160/92; PULSE 72; RESP 16; TEMP 36.7; O2SAT 97
[2024-09-30 07:37] VITALS: BP 114/71; PULSE 72; RESP 16; TEMP 36.2; O2SAT 98
--- NOTE | 2024-09-30 11:23 | P.PNPSI_ITS ---
Subjective Subjective Date of Service: 09/30/24 Reason For Visit: Paranoid Agitation Interim History: Patient withdrawn isolative minimal engagement. Patient continues guarded and paranoid.Appears anxious, Intermittent, fleeting and avoidant eye contact. Spends time alone in the sensory room with the lights off. He appears tense, anxious and internally preoccupied. Refusing Invega in AM. I just don't think it will do anything. Remains psychotic. Review of Systems Review of Systems Constitutional : No Weight loss, No Fever, No Chills, No Night Sweats, No Fatigue, No Malaise ENT/Mouth : No Hearing loss, No Ear Pain, No Nasal Congestion, No Sinus Pain, No Hoarseness, No sore throat, No Rhinorrhea, No Swallowing Difficulty Eyes: No Eye Pain, No Swelling, No Redness, No Foreign Body, No Discharge, No Vision Changes Cardiovascular : No Chest Pain, No SOB, No Dyspnea on Exertion, No Orthopnea, No Edema, No Palpitations Respiratory : No Cough, No Sputum, No Wheezing, No Smoke Exposure, No Dyspnea Gastrointestinal : No Nausea, No Vomiting, No Diarrhea, No Constipation, No abdominal Pain, No Hematochezia, No Melena Genitourinary : no irregular bleeding, No Dysuria, No Urinary Frequency, No Hematuria, No Urinary Incontinence, No Urgency, No Flank Pain, No Urinary Flow Changes, No Hesitancy Musculoskeletal : No joint pain, No Myalgias, No Joint Swelling Skin : No Skin Lesions, No rash Neuro : No Weakness, No Numbness, No Paresthesias, No Loss of Consciousness, No Dizziness, No Headache Psych : Complaining of anxiety and depression, denies SI or HI. Heme/Lymph: No Bruising, No Bleeding,No Lymphadenopathy Endocrine : No Polyuria, No Polydipsia, No Temperature Intolerance Yes all other systems are reviewed and are negative Mental Status Exam Mental Status Exam Narrative: Patient casually dressed anxious in appearance restricted affect poverty of content thought blocking minimally informational insight severely limited impulse control intact in this setting no gross si hi Patient Appearance: Appropriate Patient Orientation: Person and Place Level of Consciousness: Awake Patient Behavior: Guarded, Passive and Suspicious Mood Description: Suspicious, Withdrawn, Flat and Apprehensive Affect Description: Suspicious, Withdrawn and Flat Patient Cognition Impaired: No Ability to Follow Directions: Fair Speech Pattern: Whisper, Mumbled and Poor Articulation Memory Description: Intact Diagnostics Vital Signs (24Hr): Vital Signs - 24 hr 09/29/24 19:27 09/30/24 07:37 Temperature 98.0 F 97.2 F Pulse Rate 72 72 Respiratory Rate 16 16 Blood Pressure 160/92 H 114/71 Pulse Oximetry 97 98 Oxygen Delivery Method Room Air Room Air BMI result Body Mass Index 26.0 Labs 09/21/24 00:33 09/22/24 08:36 Medications Medications Current Medications Acetaminophen (Acetaminophen 325 Mg Tablet) 650 mg PO Q6H PRN PRN Reason: Headache/Pain Mild Scale (1-3) Al Hydroxide/Mg Hydroxide (Magnesium Hydrox/Alum Hydrox 30 Ml Oral.Susp) 30 ml PO Q6H PRN PRN Reason: Heartburn/Nausea Hydroxyzine HCl (Hydroxyzine Hcl 25 Mg Tablet) 25 mg PO Q6H PRN PRN Reason: Anxiety Lorazepam (Lorazepam 1 Mg Tablet) 1 mg PO Q4H PRN PRN Reason: anxiety/restlessness Last Admin: 09/29/24 18:50 Dose: 1 mg Magnesium Hydroxide (Milk Of Magnesia 30 Ml Oral.Susp) 30 ml PO DAILY PRN PRN Reason: Constipation Olanzapine (Olanzapine 5 Mg Tablet) 5 mg PO BID PRN PRN Reason: Psychosis Paliperidone (Paliperidone Er 3 Mg Tab.Er.24) 3 mg PO DAILY CRISS Last Admin: 09/30/24 08:23 Dose: Not Given Trazodone HCl (Trazodone Hcl 25 Mg Halftab) 75 mg PO BEDTIME PRN PRN Reason: insomnia Last Admin: 09/26/24 21:22 Dose: 75 mg Allergies Allergies Allergy/AdvReac Type Severity Reaction Status Date / Time No Known Allergies Allergy Verified 09/20/24 21:56 Assessment & Plan Assessment & Plan (1) Schizophrenia: Status: Acute Code(s): F20.9 - Schizophrenia, unspecified (2) Chronic schizophrenia with acute exacerbation: Status: Acute Code(s): F20.9 - Schizophrenia, unspecified (3) Noncompliance with medications: Status: Acute Code(s): Z91.148 - Patient's other noncompliance with medication regimen for other reason Plan Presents with paranoia, hallucinations, HI and agitation in context of med non adherence and established diagnosis of SCZ. Plan: 1) S12 and [place] warning 2) Offer olanzapine 7.5mg bedtime and trazodone 75mg 09/23/24: encourage adherence to olanzapine 7.5mg bedtime 09/24/24 No current insight isolative mumbling refusing medication for psychosis 09/25/24 Was able to get secondary info from father pt had been threatening also quite disorganized mumbling difficulty taking care of himself does not recognize his psychiatric condition or need for tx will most likely file for commitment encourage tx compliance 09/26/2024 [address]work filled out for court filing both mother and patient's father reports disorganized intrusive bizarre behavior intrusive with individuals yellows yelling screaming threatening grossly disorganized File for civil commitment and treatment plan family supportive 09/27/2024 Encourage therapeutic [place] have prescribed Invega with hope of eventually long-acting injectable patient continues guarded apprehensive poor insight and judgment 09/28/24 encourage tx compliance encourage invega 09/29: Continues psychotic and refusing treatment. Continue current management and treatment plan. 09/30: Encourage adherence. Reason for continued inpatient stay Substantial Risk for: harm to others, inability to function and rapid decompensation Time Spent With Patient Time: Total time managing care of this patient today ____ minutes.
[2024-09-30 20:00] VITALS: BP 137/90; PULSE 74; RESP 16; TEMP 36.5; O2SAT 97
[2024-09-30] MEDS: LORazepam 1 MG TABLET PO (22:21)
[2024-10-01 08:00] VITALS: BP 115/68; PULSE 72; RESP 14; TEMP 36.6; O2SAT 98
--- NOTE | 2024-10-01 16:10 | HO.PSYCHPN ---
Subjective Subjective Date of Service: 10/01/24 Reason For Visit: Paranoid Agitation Subjective Notes: Conditional Voluntary Interim History: Pt reports he is not crazy, I am just anxious. He denies SI/HI. He denies hearing voices. He reports he just want to go home He is mostly in sensory room, guarded, appears internally preoccupied. declines taking paliperidone Medication Compliance: No Review of Systems Review of Systems Constitutional : No Weight loss, No Fever, No Chills, No Night Sweats, No Fatigue, No Malaise ENT/Mouth : No Hearing loss, No Ear Pain, No Nasal Congestion, No Sinus Pain, No Hoarseness, No sore throat, No Rhinorrhea, No Swallowing Difficulty Eyes: No Eye Pain, No Swelling, No Redness, No Foreign Body, No Discharge, No Vision Changes Cardiovascular : No Chest Pain, No SOB, No Dyspnea on Exertion, No Orthopnea, No Edema, No Palpitations Respiratory : No Cough, No Sputum, No Wheezing, No Smoke Exposure, No Dyspnea Gastrointestinal : No Nausea, No Vomiting, No Diarrhea, No Constipation, No abdominal Pain, No Hematochezia, No Melena Genitourinary : no irregular bleeding, No Dysuria, No Urinary Frequency, No Hematuria, No Urinary Incontinence, No Urgency, No Flank Pain, No Urinary Flow Changes, No Hesitancy Musculoskeletal : No joint pain, No Myalgias, No Joint Swelling Skin : No Skin Lesions, No rash Neuro : No Weakness, No Numbness, No Paresthesias, No Loss of Consciousness, No Dizziness, No Headache Psych : Complaining of anxiety and depression, denies SI or HI. Heme/Lymph: No Bruising, No Bleeding,No Lymphadenopathy Endocrine : No Polyuria, No Polydipsia, No Temperature Intolerance Yes all other systems are reviewed and are negative Mental Status Exam Mental Status Exam Narrative: Patient casually dressed anxious in appearance restricted affect poverty of content thought blocking minimally informational insight severely limited impulse control intact in this setting no gross si hi Diagnostics Vital Signs (24Hr): Vital Signs - 24 hr 09/30/24 20:00 10/01/24 08:00 Temperature 97.7 F 97.9 F Pulse Rate 74 72 Respiratory Rate 16 14 Blood Pressure 137/90 H 115/68 Pulse Oximetry 97 98 Oxygen Delivery Method Room Air Room Air BMI result Body Mass Index 26.0 Labs 09/21/24 00:33 09/22/24 08:36 Medications Medications Current Medications Acetaminophen (Acetaminophen 325 Mg Tablet) 650 mg PO Q6H PRN PRN Reason: Headache/Pain Mild Scale (1-3) Al Hydroxide/Mg Hydroxide (Magnesium Hydrox/Alum Hydrox 30 Ml Oral.Susp) 30 ml PO Q6H PRN PRN Reason: Heartburn/Nausea Hydroxyzine HCl (Hydroxyzine Hcl 25 Mg Tablet) 25 mg PO Q6H PRN PRN Reason: Anxiety Lorazepam (Lorazepam 1 Mg Tablet) 1 mg PO Q4H PRN PRN Reason: anxiety/restlessness Last Admin: 09/30/24 22:21 Dose: 1 mg Magnesium Hydroxide (Milk Of Magnesia 30 Ml Oral.Susp) 30 ml PO DAILY PRN PRN Reason: Constipation Olanzapine (Olanzapine 5 Mg Tablet) 5 mg PO BID PRN PRN Reason: Psychosis Paliperidone (Paliperidone Er 3 Mg Tab.Er.24) 3 mg PO DAILY CRISS Last Admin: 10/01/24 09:18 Dose: Not Given Trazodone HCl (Trazodone Hcl 25 Mg Halftab) 75 mg PO BEDTIME PRN PRN Reason: insomnia Last Admin: 09/26/24 21:22 Dose: 75 mg Allergies Allergies Allergy/AdvReac Type Severity Reaction Status Date / Time No Known Allergies Allergy Verified 09/20/24 21:56 Assessment & Plan Assessment & Plan (1) Schizophrenia: Status: Acute Code(s): F20.9 - Schizophrenia, unspecified (2) Chronic schizophrenia with acute exacerbation: Status: Acute Code(s): F20.9 - Schizophrenia, unspecified (3) Noncompliance with medications: Status: Acute Code(s): Z91.148 - Patient's other noncompliance with medication regimen for other reason Plan Presents with paranoia, hallucinations, HI and agitation in context of med non adherence and established diagnosis of SCZ. Plan: 1) S12 and Baldwin warning 2) Offer olanzapine 7.5mg bedtime and trazodone 75mg 09/23/24: encourage adherence to olanzapine 7.5mg bedtime 09/24/24 No current insight isolative mumbling refusing medication for psychosis 09/25/24 Was able to get secondary info from father pt had been threatening also quite disorganized mumbling difficulty taking care of himself does not recognize his psychiatric condition or need for tx will most likely file for commitment encourage tx compliance 09/26/20[address]work filled out for court filing both mother and patient's father reports disorganized intrusive bizarre behavior intrusive with individuals yellows yelling screaming threatening grossly disorganized File for civil commitment and treatment plan family supportive 09/27/2024 Encourage therapeutic [place] have prescribed Invega with hope of eventually long-acting injectable patient continues guarded apprehensive poor insight and judgment 09/28/24 encourage tx compliance encourage invega 09/29: Continues psychotic and refusing treatment. Continue current management and treatment plan. 09/30: Encourage adherence. 12/01 continue tx. Reason for continued inpatient stay Substantial Risk for: inability to function Time Spent With Patient Time: Total time managing care of this patient today ____ minutes.
[2024-10-01 20:00] VITALS: BP 145/84; PULSE 67; RESP 16; TEMP 37.1; O2SAT 97
[2024-10-02 07:39] VITALS: BP 131/67; PULSE 66; RESP 16; TEMP 36.4; O2SAT 98
--- NOTE | 2024-10-02 13:13 | HO.PSYCHPN ---
Subjective Subjective Date of Service: 10/02/24 Reason For Visit: Paranoid Agitation Subjective Notes: Section 7 Guardianship: No Interim History: Patient continues to refuse antipsychotic medication he is often isolated somewhat withdrawn stating he wants to move to [place] states he has not spoken with his parents he is not engaging with others appears tense and anxious refusing to consider medication stating I do not have an illness like that to take in some information regarding marijuana use and psychosis Mental Status Exam Mental Status Exam Narrative: Patient casually dressed anxious in appearance appears diaphoretic at time restricted affect minimally engaged in conversation began to take in information regarding court hearing poverty of content thought blocking minimally informational insight severely limited impulse control intact in this setting no gross si hi Diagnostics Vital Signs (24Hr): Vital Signs - 24 hr 10/01/24 20:00 10/02/24 07:39 Temperature 98.7 F 97.6 F Pulse Rate 67 66 Respiratory Rate 16 16 Blood Pressure 145/84 H 131/67 Pulse Oximetry 97 98 Oxygen Delivery Method Room Air Room Air BMI result Body Mass Index 26.0 Labs 09/21/24 00:33 09/22/24 08:36 Medications Medications Current Medications Acetaminophen (Acetaminophen 325 Mg Tablet) 650 mg PO Q6H PRN PRN Reason: Headache/Pain Mild Scale (1-3) Al Hydroxide/Mg Hydroxide (Magnesium Hydrox/Alum Hydrox 30 Ml Oral.Susp) 30 ml PO Q6H PRN PRN Reason: Heartburn/Nausea Hydroxyzine HCl (Hydroxyzine Hcl 25 Mg Tablet) 25 mg PO Q6H PRN PRN Reason: Anxiety Lorazepam (Lorazepam 1 Mg Tablet) 1 mg PO Q4H PRN PRN Reason: anxiety/restlessness Last Admin: 09/30/24 22:21 Dose: 1 mg Magnesium Hydroxide (Milk Of Magnesia 30 Ml Oral.Susp) 30 ml PO DAILY PRN PRN Reason: Constipation Olanzapine (Olanzapine 5 Mg Tablet) 5 mg PO BID PRN PRN Reason: Psychosis Paliperidone (Paliperidone Er 3 Mg Tab.Er.24) 3 mg PO DAILY CRISS Last Admin: 10/02/24 08:20 Dose: Not Given Trazodone HCl (Trazodone Hcl 25 Mg Halftab) 75 mg PO BEDTIME PRN PRN Reason: insomnia Last Admin: 09/26/24 21:22 Dose: 75 mg Allergies Allergies Allergy/AdvReac Type Severity Reaction Status Date / Time No Known Allergies Allergy Verified 09/20/24 21:56 Assessment & Plan Assessment & Plan (1) Schizophrenia: Status: Acute Code(s): F20.9 - Schizophrenia, unspecified (2) Chronic schizophrenia with acute exacerbation: Status: Acute Code(s): F20.9 - Schizophrenia, unspecified (3) Noncompliance with medications: Status: Acute Code(s): Z91.148 - Patient's other noncompliance with medication regimen for other reason Plan Presents with paranoia, hallucinations, HI and agitation in context of med non adherence and established diagnosis of SCZ. Plan: 1) S12 and Baldwin warning 2) Offer olanzapine 7.5mg bedtime and trazodone 75mg 09/23/24: encourage adherence to olanzapine 7.5mg bedtime 09/24/24 No current insight isolative mumbling refusing medication for psychosis 09/25/24 Was able to get secondary info from father pt had been threatening also quite disorganized mumbling difficulty taking care of himself does not recognize his psychiatric condition or need for tx will most likely file for commitment encourage tx compliance 09/26/[address] filled out for court filing both mother and patient's father reports disorganized intrusive bizarre behavior intrusive with individuals yellows yelling screaming threatening grossly disorganized File for civil commitment and treatment plan family supportive 09/27/2024 Encourage therapeutic [place] have prescribed Invega with hope of eventually long-acting injectable patient continues guarded apprehensive poor insight and judgment 09/28/24 encourage tx compliance encourage invega 09/29: Continues psychotic and refusing treatment. Continue current management and treatment plan. 09/30: Encourage adherence. 12/01 continue tx. 10/02/2024 Patient continues to refuse treatment states he will not live with his parents has no interest in taking in information regarding psychiatric illness psychosis was able vaguely hear that marijuana may cause psychotic symptoms in volleyball people did state in the past he had taken olanzapine he is aware of court hearing he has not been aggressive in this setting [address] in treatment plan Reason for continued inpatient stay Substantial Risk for: harm to others, inability to function and rapid decompensation Time Spent With Patient Time: Total time managing care of this patient today ____ minutes.
[2024-10-02 20:00] VITALS: BP 145/77; PULSE 60; RESP 16; TEMP 36.9; O2SAT 97
[2024-10-03 07:20] VITALS: BP 130/76; PULSE 60; RESP 14; TEMP 36.4; O2SAT 98
[2024-10-03 19:56] VITALS: BP 127/69; PULSE 64; RESP 18; TEMP 36.4; O2SAT 98
--- NOTE | 2024-10-03 23:01 | P.PNPSI_ITS ---
Subjective Subjective Date of Service: 10/03/24 Reason For Visit: Paranoid Agitation Subjective Notes: Section 7 Interim History: Patient continues with very limited engagement, refusing grps. 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 Refuses all antipsychotic medication. Pt has been denying mental illness need for medication denies any problematic behavior prior to admission Medication Compliance: No Attending Groups: No Mental Status Exam Mental Status Exam Narrative: Patient casually dressed quite anxious looking in appearance. Soft spoken poverty of content noted mood described as anxious affect is constricted. Patient limited conversationally does state he did not have auditory hallucinations that he was just hearing his parents speak in the night no reflection regarding recent behavior and problems that led to his admission patient guarded suspicious and interactions with others impulse control intact denies SI HI denies audio video hallucinations. Denies that he ever made statements to harm or kill his parents Diagnostics Vital Signs (24Hr): Vital Signs - 24 hr 10/03/24 07:20 10/03/24 19:56 Temperature 97.5 F 97.6 F Pulse Rate 60 64 Respiratory Rate 14 18 Blood Pressure 130/76 127/69 Pulse Oximetry 98 98 Oxygen Delivery Method Room Air BMI result Body Mass Index 26.0 Labs 09/21/24 00:33 09/22/24 08:36 Medications Medications Current Medications Acetaminophen (Acetaminophen 325 Mg Tablet) 650 mg PO Q6H PRN PRN Reason: Headache/Pain Mild Scale (1-3) Al Hydroxide/Mg Hydroxide (Magnesium Hydrox/Alum Hydrox 30 Ml Oral.Susp) 30 ml PO Q6H PRN PRN Reason: Heartburn/Nausea Hydroxyzine HCl (Hydroxyzine Hcl 25 Mg Tablet) 25 mg PO Q6H PRN PRN Reason: Anxiety Lorazepam (Lorazepam 1 Mg Tablet) 1 mg PO Q4H PRN PRN Reason: anxiety/restlessness Last Admin: 09/30/24 22:21 Dose: 1 mg Magnesium Hydroxide (Milk Of Magnesia 30 Ml Oral.Susp) 30 ml PO DAILY PRN PRN Reason: Constipation Olanzapine (Olanzapine 5 Mg Tablet) 5 mg PO BID PRN PRN Reason: Psychosis Paliperidone (Paliperidone Er 3 Mg Tab.Er.24) 3 mg PO DAILY CRISS Last Admin: 10/03/24 08:47 Dose: Not Given Trazodone HCl (Trazodone Hcl 25 Mg Halftab) 75 mg PO BEDTIME PRN PRN Reason: insomnia Last Admin: 09/26/24 21:22 Dose: 75 mg Allergies Allergies Allergy/AdvReac Type Severity Reaction Status Date / Time No Known Allergies Allergy Verified 09/20/24 21:56 Assessment & Plan Assessment & Plan (1) Schizophrenia: Status: Acute Code(s): F20.9 - Schizophrenia, unspecified (2) Chronic schizophrenia with acute exacerbation: Status: Acute Code(s): F20.9 - Schizophrenia, unspecified (3) Noncompliance with medications: Status: Acute Code(s): Z91.148 - Patient's other noncompliance with medication regimen for other reason Plan Presents with paranoia, hallucinations, HI and agitation in context of med non adherence and established diagnosis of SCZ. Plan: 1) S12 and Baldwin warning 2) Offer olanzapine 7.5mg bedtime and trazodone 75mg 09/23/24: encourage adherence to olanzapine 7.5mg bedtime 09/24/24 No current insight isolative mumbling refusing medication for psychosis 09/25/24 Was able to get secondary info from father pt had been threatening also quite disorganized mumbling difficulty taking care of himself does not recognize his psychiatric condition or need for tx will most likely file for commitment encourage tx compliance 09/26/20[address]work filled out for court filing both mother and patient's father reports disorganized intrusive bizarre behavior intrusive with individuals yellows yelling screaming threatening grossly disorganized File for civil commitment and treatment plan family supportive 09/27/2024 Encourage therapeutic [facility] have prescribed Invega with hope of eventually long-acting injectable patient continues guarded apprehensive poor insight and judgment 09/28/24 encourage tx compliance encourage invega 09/29: Continues psychotic and refusing treatment. Continue current management and treatment plan. 09/30: Encourage adherence. 12/01 continue tx. 10/02/2024 Patient continues to refuse treatment states he will not live with his parents has no interest in taking in information regarding psychiatric illness psychosis was able vaguely hear that marijuana may cause psychotic symptoms in volleyball people did state in the past he had taken olanzapine he is aware of court hearing he has not been aggressive in this setting section [address] hearing in treatment plan 10/03/2024 Patient's parents will reportedly testify in court hearing tomorrow. Patient refuses to accept any treatment or referrals stating he does not have any illness and wishes to just go to [place]. His insight judgment remain quite limited he is suspicious guarded with no ability to integrate prior behavior and why he ended up in a psychiatric hospital had been brought in by the police. Difficulty taking in information patient aware process of court hearing does not wish treatment does not wish to retract Reason for continued inpatient stay Substantial Risk for: harm to others, inability to function and rapid decompensation Time Spent With Patient Time: Total time managing care of this patient today ____ minutes.
[2024-10-04 07:00] VITALS: BMI 25.6
[2024-10-04 08:51] VITALS: BP 114/70; PULSE 57; RESP 14; TEMP 36.7; O2SAT 99
[2024-10-04 19:29] VITALS: BP 161/82; PULSE 72; RESP 16; TEMP 37.2; O2SAT 98
--- NOTE | 2024-10-04 20:14 | HO.PSYCHPN ---
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 Treatment plan affirmed by court along with civil commitment. The patient verbally accepting olanzapine did have initial discussion regarding long-acting injectable. Olanzapine 5 mg at bedtime started Ativan can be used for akathisia if needed. Treatment process and expectations had been reviewed with patient. He had refused morning dose of Invega Medication Compliance: No Attending Groups: No Mental Status Exam Mental Status Exam Narrative: Patient casually dressed somewhat more verbal and forthcoming he does state that at times he had taken olanzapine when he felt he he might be having schizophrenic symptoms. His mood described as anxious somewhat constricted content focused on wanting to leave the hospital he does seem to be able to take in information that he has been admitted by the court on a civil commitment and that he was being started on medication that should help with his anxiety and fearful thoughts. Remains with limited insight guarded impulse control intact denies SI HI unclear regarding auditory hallucination. He is speaking in spencer linear sentences Diagnostics Vital Signs (24Hr): Vital Signs - 24 hr 10/04/24 08:51 Temperature 98.0 F Pulse Rate 57 Respiratory Rate 14 Blood Pressure 114/70 Pulse Oximetry 99 Oxygen Delivery Method Room Air BMI result Body Mass Index 25.6 Labs 09/21/24 00:33 09/22/24 08:36 Medications Medications Current Medications Acetaminophen (Acetaminophen 325 Mg Tablet) 650 mg PO Q6H PRN PRN Reason: Headache/Pain Mild Scale (1-3) Al Hydroxide/Mg Hydroxide (Magnesium Hydrox/Alum Hydrox 30 Ml Oral.Susp) 30 ml PO Q6H PRN PRN Reason: Heartburn/Nausea Hydroxyzine HCl (Hydroxyzine Hcl 25 Mg Tablet) 25 mg PO Q6H PRN PRN Reason: Anxiety Lorazepam (Lorazepam 1 Mg Tablet) 1 mg PO Q4H PRN PRN Reason: anxiety/restlessness Last Admin: 09/30/24 22:21 Dose: 1 mg Magnesium Hydroxide (Milk Of Magnesia 30 Ml Oral.Susp) 30 ml PO DAILY PRN PRN Reason: Constipation Olanzapine (Olanzapine 5 Mg Tablet) 5 mg PO BID PRN PRN Reason: Psychosis Olanzapine (Olanzapine 5 Mg Tablet) 5 mg PO BEDTIME CRISS Trazodone HCl (Trazodone Hcl 25 Mg Halftab) 75 mg PO BEDTIME PRN PRN Reason: insomnia Last Admin: 09/26/24 21:22 Dose: 75 mg Allergies Allergies Allergy/AdvReac Type Severity Reaction Status Date / Time No Known Allergies Allergy Verified 09/20/24 21:56 Assessment & Plan Assessment & Plan (1) Schizophrenia: Status: Acute Code(s): F20.9 - Schizophrenia, unspecified (2) Chronic schizophrenia with acute exacerbation: Status: Acute Code(s): F20.9 - Schizophrenia, unspecified (3) Noncompliance with medications: Status: Acute Code(s): Z91.148 - Patient's other noncompliance with medication regimen for other reason Plan Presents with paranoia, hallucinations, HI and agitation in context of med non adherence and established diagnosis of SCZ. Plan: 1) S12 and Baldwin warning 2) Offer olanzapine 7.5mg bedtime and trazodone 75mg 09/23/24: encourage adherence to olanzapine 7.5mg bedtime 09/24/24 No current insight isolative mumbling refusing medication for psychosis 09/25/24 Was able to get secondary info from father pt had been threatening also quite disorganized mumbling difficulty taking care of himself does not recognize his psychiatric condition or need for tx will most likely file for commitment encourage tx compliance 09/26/2024 Paperwork filled out for court filing both mother and patient's father reports disorganized intrusive bizarre behavior intrusive with individuals yellows yelling screaming threatening grossly disorganized File for civil commitment and treatment plan family supportive 09/27/2024 Encourage therapeutic [place] have prescribed Invega with hope of eventually long-acting injectable patient continues guarded apprehensive poor insight and judgment 09/28/24 encourage tx compliance encourage invega 09/29: Continues psychotic and refusing treatment. Continue current management and treatment plan. 09/30: Encourage adherence. 12/01 continue tx. 10/02/2024 Patient continues to refuse treatment states he will not live with his parents has no interest in taking in information regarding psychiatric illness psychosis was able vaguely hear that marijuana may cause psychotic symptoms in volleyball people did state in the past he had taken olanzapine he is aware of court hearing he has not been aggressive in this setting section [address] in treatment plan 10/03/2024 Patient's parents will reportedly testify in court hearing tomorrow. Patient refuses to accept any treatment or referrals stating he does not have any illness and wishes to just go to [place]. His insight judgment remain quite limited he is suspicious guarded with no ability to integrate prior behavior and why he ended up in a psychiatric hospital had been brought in by the police. Difficulty taking in information patient aware process of court hearing does not wish treatment does not wish to retract 10/04/2024 Start olanzapine 5 mg at bedtime per court order will hold off on IM olanzapine for tonight. Patient appears to understand terms of commitment Would benefit from long-acting injectable. Encourage medication of acceptance monitor response Patient educated on: diagnosis and medication risk/benefits Informed Consent: does not understand Reason for continued inpatient stay Substantial Risk for: harm to others, inability to function and rapid decompensation Time Spent With Patient Time: Total time managing care of this patient [id number] ____ minutes.
[2024-10-04] MEDS: LORazepam 1 MG TABLET PO (22:43)
[2024-10-04] MEDS: traZODone HCL 25 MG HALFTAB 75 MG PO (22:43)
[2024-10-05 07:39] VITALS: BP 113/56; PULSE 85; RESP 16; TEMP 36.9; O2SAT 98
--- NOTE | 2024-10-05 19:14 | HO.PSYCHPN ---
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 Explained to pt court order Medication Compliance: No Mental Status Exam Mental Status Exam Narrative: pt casually dressed anxious in appearance calm dysphoric constricted content on not needing medication not having sx and trying to explain his behavior prior to adm denies caruso impulse control intact no si hi Diagnostics Vital Signs (24Hr): Vital Signs - 24 hr 10/04/24 19:29 10/05/24 07:39 Temperature 98.9 F 98.5 F Pulse Rate 72 85 Respiratory Rate 16 16 Blood Pressure 161/82 H 113/56 L Pulse Oximetry 98 98 Oxygen Delivery Method Room Air Room Air BMI result Body Mass Index 25.6 Labs 09/21/24 00:33 09/22/24 08:36 Medications Medications Current Medications Acetaminophen (Acetaminophen 325 Mg Tablet) 650 mg PO Q6H PRN PRN Reason: Headache/Pain Mild Scale (1-3) Al Hydroxide/Mg Hydroxide (Magnesium Hydrox/Alum Hydrox 30 Ml Oral.Susp) 30 ml PO Q6H PRN PRN Reason: Heartburn/Nausea Hydroxyzine HCl (Hydroxyzine Hcl 25 Mg Tablet) 25 mg PO Q6H PRN PRN Reason: Anxiety Lorazepam (Lorazepam 1 Mg Tablet) 1 mg PO Q4H PRN PRN Reason: anxiety/restlessness Last Admin: 10/04/24 22:43 Dose: 1 mg Magnesium Hydroxide (Milk Of Magnesia 30 Ml Oral.Susp) 30 ml PO DAILY PRN PRN Reason: Constipation Olanzapine (Olanzapine 5 Mg Tablet) 5 mg PO BID PRN PRN Reason: Psychosis Olanzapine (Olanzapine 5 Mg Tablet) 5 mg PO BEDTIME CRISS Last Admin: 10/04/24 22:44 Dose: Not Given Trazodone HCl (Trazodone Hcl 25 Mg Halftab) 75 mg PO BEDTIME PRN PRN Reason: insomnia Last Admin: 10/04/24 22:43 Dose: 75 mg Allergies Allergies Allergy/AdvReac Type Severity Reaction Status Date / Time No Known Allergies Allergy Verified 09/20/24 21:56 Assessment & Plan Assessment & Plan (1) Schizophrenia: Status: Acute Code(s): F20.9 - Schizophrenia, unspecified (2) Chronic schizophrenia with acute exacerbation: Status: Acute Code(s): F20.9 - Schizophrenia, unspecified (3) Noncompliance with medications: Status: Acute Code(s): Z91.148 - Patient's other noncompliance with medication regimen for other reason Plan Presents with paranoia, hallucinations, HI and agitation in context of med non adherence and established diagnosis of SCZ. Plan: 1) S12 and Baldwin warning 2) Offer olanzapine 7.5mg bedtime and trazodone 75mg 09/23/24: encourage adherence to olanzapine 7.5mg bedtime 09/24/24 No current insight isolative mumbling refusing medication for psychosis 09/25/24 Was able to get secondary info from father pt had been threatening also quite disorganized mumbling difficulty taking care of himself does not recognize his psychiatric condition or need for tx will most likely file for commitment encourage tx compliance 09/26/2024 Paperwork filled out for court filing both mother and patient's father reports disorganized intrusive bizarre behavior intrusive with individuals yellows yelling screaming threatening grossly disorganized File for civil commitment and treatment plan family supportive 09/27/2024 Encourage therapeutic [place] have prescribed Invega with hope of eventually long-acting injectable patient continues guarded apprehensive poor insight and judgment 09/28/24 encourage tx compliance encourage invega 09/29: Continues psychotic and refusing treatment. Continue current management and treatment plan. 09/30: Encourage adherence. 12/01 continue tx. 10/02/2024 Patient continues to refuse treatment states he will not live with his parents has no interest in taking in information regarding psychiatric illness psychosis was able vaguely hear that marijuana may cause psychotic symptoms in volleyball people did state in the past he had taken olanzapine he is aware of court hearing he has not been aggressive in this setting section [address] in treatment plan 10/03/2024 Patient's parents will reportedly testify in court hearing tomorrow. Patient refuses to accept any treatment or referrals stating he does not have any illness and wishes to just go to [place]. His insight judgment remain quite limited he is suspicious guarded with no ability to integrate prior behavior and why he ended up in a psychiatric hospital had been brought in by the police. Difficulty taking in information patient aware process of court hearing does not wish treatment does not wish to retract 10/04/2024 Start olanzapine 5 mg at bedtime per court order will hold off on IM olanzapine for tonight. Patient appears to understand terms of commitment Would benefit from long-acting injectable. Encourage medication of acceptance monitor response 10/05/2024 Start olanzapine 5 mg p.o. to give 5 mg IM if refuses options include increasing to 10 mg monitor for adverse effects but would most likely benefit from transition to Abilify which can be given as a long-acting injectable encourage less isolation encourage group social active patient has not been speaking with his parents Reason for continued inpatient stay Substantial Risk for: harm to others, inability to function and rapid decompensation Time Spent With Patient Time: Total time managing care of this patient today ____ minutes.
[2024-10-05 20:00] VITALS: BP 141/91; PULSE 91; RESP 16; TEMP 36.6; O2SAT 98
[2024-10-05] MEDS: LORazepam 1 MG TABLET PO (21:46)
[2024-10-05] MEDS: OLANZapine 5 MG TABLET PO (21:46)
[2024-10-06 07:25] VITALS: BP 116/75; PULSE 60; RESP 14; TEMP 36.4; O2SAT 99
--- NOTE | 2024-10-06 08:54 | P.PNPSI_ITS ---
Subjective Subjective Date of Service: 10/06/24 Reason For Visit: Paranoid Agitation Subjective Notes: Feng Order Interim History: The nursing staff reported the patient had been responding to auditory hallucinations but he denies voices he took Zyprexa willingly now that he is on a role years order. He had been withdrawn self dialogue in. On interview the patient denies new symptoms he states that he is doing fine but he looks internally preoccupied. Mental Status Exam Mental Status Exam Patient Appearance: Appropriate Patient Orientation: Person and Situation Level of Consciousness: Awake and Appropriate Patient Behavior: Guarded Mood Description: Calm Affect Description: Constricted Patient Cognition Impaired: Yes Ability to Follow Directions: Good Speech Pattern: Clear Hallucinations: None Delusions: Paranoid Ideation and Ideas of Reference Thought Process: Distracted Thought Content: positive for [place] Judgement: Poor Diagnostics Vital Signs (24Hr): Vital Signs - 24 hr 10/05/24 20:00 10/06/24 07:25 Temperature 97.8 F 97.6 F Pulse Rate 91 60 Respiratory Rate 16 14 Blood Pressure 141/91 H 116/75 Pulse Oximetry 98 99 Oxygen Delivery Method Room Air Room Air BMI result Body Mass Index 25.6 Labs 09/21/24 00:33 09/22/24 08:36 Medications Medications Current Medications Acetaminophen (Acetaminophen 325 Mg Tablet) 650 mg PO Q6H PRN PRN Reason: Headache/Pain Mild Scale (1-3) Al Hydroxide/Mg Hydroxide (Magnesium Hydrox/Alum Hydrox 30 Ml Oral.Susp) 30 ml PO Q6H PRN PRN Reason: Heartburn/Nausea Hydroxyzine HCl (Hydroxyzine Hcl 25 Mg Tablet) 25 mg PO Q6H PRN PRN Reason: Anxiety Lorazepam (Lorazepam 1 Mg Tablet) 1 mg PO Q4H PRN PRN Reason: anxiety/restlessness Last Admin: 10/05/24 21:46 Dose: 1 mg Magnesium Hydroxide (Milk Of Magnesia 30 Ml Oral.Susp) 30 ml PO DAILY PRN PRN Reason: Constipation Olanzapine (Olanzapine 5 Mg Tablet) 5 mg PO BID PRN PRN Reason: Psychosis Olanzapine (Olanzapine 5 Mg Tablet) 5 mg PO BEDTIME CRISS Last Admin: 10/05/24 21:46 Dose: 5 mg Olanzapine (Olanzapine 10 Mg Vial) 5 mg IM DAILY PRN PRN Reason: Psychosis Trazodone HCl (Trazodone Hcl 25 Mg Halftab) 75 mg PO BEDTIME PRN PRN Reason: insomnia Last Admin: 10/04/24 22:43 Dose: 75 mg Allergies Allergies Allergy/AdvReac Type Severity Reaction Status Date / Time No Known Allergies Allergy Verified 09/20/24 21:56 Assessment & Plan Assessment & Plan (1) Schizophrenia: Status: Acute Code(s): F20.9 - Schizophrenia, unspecified (2) Chronic schizophrenia with acute exacerbation: Status: Acute Code(s): F20.9 - Schizophrenia, unspecified (3) Noncompliance with medications: Status: Acute Code(s): Z91.148 - Patient's other noncompliance with medication regimen for other reason Plan Presents with paranoia, hallucinations, HI and agitation in context of med non adherence and established diagnosis of SCZ. Plan: 1) S12 and Baldwin warning 2) Offer olanzapine 7.5mg bedtime and trazodone 75mg 09/23/24: encourage adherence to olanzapine 7.5mg bedtime 09/24/24 No current insight isolative mumbling refusing medication for psychosis 09/25/24 Was able to get secondary info from father pt had been threatening also quite disorganized mumbling difficulty taking care of himself does not recognize his psychiatric condition or need for tx will most likely file for commitment encourage tx compliance 09/26/2024 Paperwork filled out for court filing both mother and patient's father reports disorganized intrusive bizarre behavior intrusive with individuals yellows yelling screaming threatening grossly disorganized File for civil commitment and treatment plan family supportive 09/27/2024 Encourage therapeutic [place] have prescribed Invega with hope of eventually long-acting injectable patient continues guarded apprehensive poor insight and judgment 09/28/24 encourage tx compliance encourage invega 09/29: Continues psychotic and refusing treatment. Continue current management and treatment plan. 09/30: Encourage adherence. 12/01 continue tx. 10/02/2024 Patient continues to refuse treatment states he will not live with his parents has no interest in taking in information regarding psychiatric illness psychosis was able vaguely hear that marijuana may cause psychotic symptoms in volleyball people did state in the past he had taken olanzapine he is aware of court hearing he has not been aggressive in this setting section [address] in treatment plan 10/03/2024 Patient's parents will reportedly testify in court hearing tomorrow. Patient refuses to accept any treatment or referrals stating he does not have any illness and wishes to just go to [place]. His insight judgment remain quite limited he is suspicious guarded with no ability to integrate prior behavior and why he ended up in a psychiatric hospital had been brought in by the police. Difficulty taking in information patient aware process of court hearing does not wish treatment does not wish to retract 10/04/2024 Start olanzapine 5 mg at bedtime per court order will hold off on IM olanzapine for tonight. Patient appears to understand terms of commitment Would benefit from long-acting injectable. Encourage medication of acceptance monitor response 10/05/2024 Start olanzapine 5 mg p.o. to give 5 mg IM if refuses options include increasing to 10 mg monitor for adverse effects but would most likely benefit from transition to Abilify which can be given as a long-acting injectable encourage less isolation encourage group social active patient has not been speaking with his parents. 10/06 continue with same treatment Reason for continued inpatient stay Substantial Risk for: inability to function, rapid decompensation and med/psych decompensation Time Spent With Patient Time: Total time managing care of this patient today __20__ minutes.
[2024-10-06 20:00] VITALS: BP 125/74; PULSE 90; RESP 16; TEMP 36.5; O2SAT 96
[2024-10-06] MEDS: LORazepam 1 MG TABLET PO (20:43)
[2024-10-06] MEDS: OLANZapine 5 MG TABLET PO (20:43)
[2024-10-07 08:12] VITALS: BP 135/83; PULSE 58; RESP 14; TEMP 36.4; O2SAT 100
--- NOTE | 2024-10-07 08:56 | HO.PSYCHPN ---
Subjective Subjective Date of Service: 10/07/24 Reason For Visit: Paranoid Agitation Subjective Notes: Section 7 and Section 8 Interim History: The nursing staff reported the patient took Zyprexa with Ativan, he has been isolative polite but dismissive as per staff report. He slept 8 hours. On interview the patient denies new symptoms. Mental Status Exam Mental Status Exam Patient Appearance: Appropriate Patient Orientation: Person and Situation Level of Consciousness: Awake and Appropriate Patient Behavior: Guarded and Passive Mood Description: Withdrawn Affect Description: Constricted Patient Cognition Impaired: Yes Ability to Follow Directions: Good Speech Pattern: Clear Hallucinations: None Delusions: Ideas of Reference Thought Process: Illogical and Distracted Thought Content: positive for [place] and positive for Poverty of Content Judgement: Fair Diagnostics Vital Signs (24Hr): Vital Signs - 24 hr 10/06/24 20:00 10/07/24 08:12 Temperature 97.7 F 97.6 F Pulse Rate 90 58 Respiratory Rate 16 14 Blood Pressure 125/74 135/83 Pulse Oximetry 96 100 Oxygen Delivery Method Room Air Room Air BMI result Body Mass Index 25.6 Labs 09/21/24 00:33 09/22/24 08:36 Medications Medications Current Medications Acetaminophen (Acetaminophen 325 Mg Tablet) 650 mg PO Q6H PRN PRN Reason: Headache/Pain Mild Scale (1-3) Al Hydroxide/Mg Hydroxide (Magnesium Hydrox/Alum Hydrox 30 Ml Oral.Susp) 30 ml PO Q6H PRN PRN Reason: Heartburn/Nausea Hydroxyzine HCl (Hydroxyzine Hcl 25 Mg Tablet) 25 mg PO Q6H PRN PRN Reason: Anxiety Lorazepam (Lorazepam 1 Mg Tablet) 1 mg PO Q4H PRN PRN Reason: anxiety/restlessness Last Admin: 10/06/24 20:43 Dose: 1 mg Magnesium Hydroxide (Milk Of Magnesia 30 Ml Oral.Susp) 30 ml PO DAILY PRN PRN Reason: Constipation Olanzapine (Olanzapine 5 Mg Tablet) 5 mg PO BID PRN PRN Reason: Psychosis Olanzapine (Olanzapine 5 Mg Tablet) 5 mg PO BEDTIME CRISS Last Admin: 10/06/24 20:43 Dose: 5 mg Olanzapine (Olanzapine 10 Mg Vial) 5 mg IM DAILY PRN PRN Reason: Psychosis Trazodone HCl (Trazodone Hcl 25 Mg Halftab) 75 mg PO BEDTIME PRN PRN Reason: insomnia Last Admin: 10/04/24 22:43 Dose: 75 mg Allergies Allergies Allergy/AdvReac Type Severity Reaction Status Date / Time No Known Allergies Allergy Verified 09/20/24 21:56 Assessment & Plan Assessment & Plan (1) Schizophrenia: Status: Acute Code(s): F20.9 - Schizophrenia, unspecified (2) Chronic schizophrenia with acute exacerbation: Status: Acute Code(s): F20.9 - Schizophrenia, unspecified (3) Noncompliance with medications: Status: Acute Code(s): Z91.148 - Patient's other noncompliance with medication regimen for other reason Plan Presents with paranoia, hallucinations, HI and agitation in context of med non adherence and established diagnosis of SCZ. Plan: 1) S12 and Baldwin warning 2) Offer olanzapine 7.5mg bedtime and trazodone 75mg 09/23/24: encourage adherence to olanzapine 7.5mg bedtime 09/24/24 No current insight isolative mumbling refusing medication for psychosis 09/25/24 Was able to get secondary info from father pt had been threatening also quite disorganized mumbling difficulty taking care of himself does not recognize his psychiatric condition or need for tx will most likely file for commitment encourage tx compliance 09/26/20[address]work filled out for court filing both mother and patient's father reports disorganized intrusive bizarre behavior intrusive with individuals yellows yelling screaming threatening grossly disorganized File for civil commitment and treatment plan family supportive 09/27/2024 Encourage therapeutic [place] have prescribed Invega with hope of eventually long-acting injectable patient continues guarded apprehensive poor insight and judgment 09/28/24 encourage tx compliance encourage invega 09/29: Continues psychotic and refusing treatment. Continue current management and treatment plan. 09/30: Encourage adherence. 12/01 continue tx. 10/02/2024 Patient continues to refuse treatment states he will not live with his parents has no interest in taking in information regarding psychiatric illness psychosis was able vaguely hear that marijuana may cause psychotic symptoms in volleyball people did state in the past he had taken olanzapine he is aware of court hearing he has not been aggressive in this setting [address] in treatment plan 10/03/2024 Patient's parents will reportedly testify in court hearing tomorrow. Patient refuses to accept any treatment or referrals stating he does not have any illness and wishes to just go to [place]. His insight judgment remain quite limited he is suspicious guarded with no ability to integrate prior behavior and why he ended up in a psychiatric hospital had been brought in by the police. Difficulty taking in information patient aware process of court hearing does not wish treatment does not wish to retract 10/04/2024 Start olanzapine 5 mg at bedtime per court order will hold off on IM olanzapine for tonight. Patient appears to understand terms of commitment Would benefit from long-acting injectable. Encourage medication of acceptance monitor response 10/05/2024 Start olanzapine 5 mg p.o. to give 5 mg IM if refuses options include increasing to 10 mg monitor for adverse effects but would most likely benefit from transition to Abilify which can be given as a long-acting injectable encourage less isolation encourage group social active patient has not been speaking with his parents. 10/06 continue with same treatment. 10/07 continue same treatment Reason for continued inpatient stay Substantial Risk for: inability to function, rapid decompensation and med/psych decompensation Time Spent With Patient Time: Total time managing care of this patient today __20__ minutes.
[2024-10-07 19:20] VITALS: BP 145/80; PULSE 76; RESP 16; TEMP 36.3; O2SAT 96
[2024-10-07] MEDS: LORazepam 1 MG TABLET PO (22:14)
[2024-10-07] MEDS: OLANZapine 5 MG TABLET PO (22:14)
[2024-10-08 08:04] VITALS: BP 139/76; PULSE 50; RESP 16; TEMP 36.5; O2SAT 99
--- NOTE | 2024-10-08 12:57 | P.PNPSI_ITS ---
Subjective Subjective Date of Service: 10/08/24 Reason For Visit: Paranoid Agitation Interim History: calm, cooperative. poor insight, but adequate behavior on unit. c/o feeling slowed and foggy and with lingering sedation from antipsychotics. reticent to increase past 5 mg olanzapine nightly. requesting discharge. planning to go to [place] immediately after discharge to live with a friend. per staff, on section 8. flat, withdrawn, guarded. taking meds. slept 8 hours. Mental Status Exam Mental Status Exam Narrative: adequately dressed and groomed. cooperative. no PMA/PMR. speech nml rate, amount. somewhat mumbled and with accent. thoughts linear, some strange responses which may be attributable to ESL. affect constricted. mood euthymic. no SI/HI/AVH expressed. poor insight. Diagnostics Vital Signs (24Hr): Vital Signs - 24 hr 10/07/24 19:20 10/08/24 08:04 Temperature 97.4 F 97.7 F Pulse Rate 76 50 Respiratory Rate 16 16 Blood Pressure 145/80 H 139/76 Pulse Oximetry 96 99 Oxygen Delivery Method Room Air Room Air BMI result Body Mass Index 25.6 Labs 09/21/24 00:33 09/22/24 08:36 Medications Medications Current Medications Acetaminophen (Acetaminophen 325 Mg Tablet) 650 mg PO Q6H PRN PRN Reason: Headache/Pain Mild Scale (1-3) Al Hydroxide/Mg Hydroxide (Magnesium Hydrox/Alum Hydrox 30 Ml Oral.Susp) 30 ml PO Q6H PRN PRN Reason: Heartburn/Nausea Hydroxyzine HCl (Hydroxyzine Hcl 25 Mg Tablet) 25 mg PO Q6H PRN PRN Reason: Anxiety Lorazepam (Lorazepam 1 Mg Tablet) 1 mg PO Q4H PRN PRN Reason: anxiety/restlessness Last Admin: 10/07/24 22:14 Dose: 1 mg Magnesium Hydroxide (Milk Of Magnesia 30 Ml Oral.Susp) 30 ml PO DAILY PRN PRN Reason: Constipation Olanzapine (Olanzapine 5 Mg Tablet) 5 mg PO BID PRN PRN Reason: Psychosis Olanzapine (Olanzapine 5 Mg Tablet) 5 mg PO BEDTIME CRISS Last Admin: 10/07/24 22:14 Dose: 5 mg Olanzapine (Olanzapine 10 Mg Vial) 5 mg IM DAILY PRN PRN Reason: Psychosis Trazodone HCl (Trazodone Hcl 25 Mg Halftab) 75 mg PO BEDTIME PRN PRN Reason: insomnia Last Admin: 10/04/24 22:43 Dose: 75 mg Allergies Allergies Allergy/AdvReac Type Severity Reaction Status Date / Time No Known Allergies Allergy Verified 09/20/24 21:56 Assessment & Plan Assessment & Plan (1) Schizophrenia: Status: Acute Code(s): F20.9 - Schizophrenia, unspecified (2) Chronic schizophrenia with acute exacerbation: Status: Acute Code(s): F20.9 - Schizophrenia, unspecified (3) Noncompliance with medications: Status: Acute Code(s): Z91.148 - Patient's other noncompliance with medication regimen for other reason Plan Presents with paranoia, hallucinations, HI and agitation in context of med non adherence and established diagnosis of SCZ. Plan: 1) S12 and Baldwin warning 2) Offer olanzapine 7.5mg bedtime and trazodone 75mg 09/23/24: encourage adherence to olanzapine 7.5mg bedtime 09/24/24 No current insight isolative mumbling refusing medication for psychosis 09/25/24 Was able to get secondary info from father pt had been threatening also quite disorganized mumbling difficulty taking care of himself does not recognize his psychiatric condition or need for tx will most likely file for commitment encourage tx compliance 09/26/2024 Paperwork filled out for court filing both mother and patient's father reports disorganized intrusive bizarre behavior intrusive with individuals yellows yelling screaming threatening grossly disorganized File for civil commitment and treatment plan family supportive 09/27/2024 Encourage therapeutic [place] have prescribed Invega with hope of eventually long-acting injectable patient continues guarded apprehensive poor insight and judgment 09/28/24 encourage tx compliance encourage invega 09/29: Continues psychotic and refusing treatment. Continue current management and treatment plan. 09/30: Encourage adherence. 12/01 continue tx. 10/02/2024 Patient continues to refuse treatment states he will not live with his parents has no interest in taking in information regarding psychiatric illness psychosis was able vaguely hear that marijuana may cause psychotic symptoms in volley[place] people did state in the past he had taken olanzapine he is aware of court hearing he has not been aggressive in this setting section [address] in treatment plan 10/03/2024 Patient's parents will reportedly testify in court hearing tomorrow. Patient refuses to accept any treatment or referrals stating he does not have any illness and wishes to just go to [place]. His insight judgment remain quite limited he is suspicious guarded with no ability to integrate prior behavior and why he ended up in a psychiatric hospital had been brought in by the police. Difficulty taking in information patient aware process of court hearing does not wish treatment does not wish to retract 10/04/2024 Start olanzapine 5 mg at bedtime per court order will hold off on IM olanzapine for tonight. Patient appears to understand terms of commitment Would benefit from long-acting injectable. Encourage medication of acceptance monitor response 10/05/2024 Start olanzapine 5 mg p.o. to give 5 mg IM if refuses options include increasing to 10 mg monitor for adverse effects but would most likely benefit from transition to Abilify which can be given as a long-acting injectable encourage less isolation encourage group social active patient has not been speaking with his parents. 10/06 continue with same treatment. 10/07 continue same treatment 10/08: poor insight. c/o s/e from medication such as grogginess, sedation, fuzzy thinking. T/C KAUFMAN. continue current mgmt for now. Reason for continued inpatient stay Substantial Risk for: inability to function and rapid decompensation Time Spent With Patient Time: Total time managing care of this patient today __35__ minutes.
--- NOTE | 2024-10-08 16:25 | HO.PSYCHPN ---
Subjective Subjective Date of Service: 10/08/24 Reason For Visit: Paranoid Agitation Interim History: reporting Sx c/w akathisia, but not all the time. comfortable on 5 mg olanzapine, reticent to increase to 7.5 mg. appears far improved from admission, at least affectively. asking for discharge. per staff, flat, withdrawn, guarded. taking meds. slept 8 hours. Diagnostics Vital Signs (24Hr): Vital Signs - 24 hr 10/07/24 19:20 10/08/24 08:04 Temperature 97.4 F 97.7 F Pulse Rate 76 50 Respiratory Rate 16 16 Blood Pressure 145/80 H 139/76 Pulse Oximetry 96 99 Oxygen Delivery Method Room Air Room Air BMI result Body Mass Index 25.6 Labs 09/21/24 00:33 09/22/24 08:36 Medications Medications Current Medications Acetaminophen (Acetaminophen 325 Mg Tablet) 650 mg PO Q6H PRN PRN Reason: Headache/Pain Mild Scale (1-3) Al Hydroxide/Mg Hydroxide (Magnesium Hydrox/Alum Hydrox 30 Ml Oral.Susp) 30 ml PO Q6H PRN PRN Reason: Heartburn/Nausea Hydroxyzine HCl (Hydroxyzine Hcl 25 Mg Tablet) 25 mg PO Q6H PRN PRN Reason: Anxiety Lorazepam (Lorazepam 1 Mg Tablet) 1 mg PO Q4H PRN PRN Reason: anxiety/restlessness Last Admin: 10/07/24 22:14 Dose: 1 mg Magnesium Hydroxide (Milk Of Magnesia 30 Ml Oral.Susp) 30 ml PO DAILY PRN PRN Reason: Constipation Olanzapine (Olanzapine 5 Mg Tablet) 5 mg PO BID PRN PRN Reason: Psychosis Olanzapine (Olanzapine 5 Mg Tablet) 5 mg PO BEDTIME CRISS Last Admin: 10/07/24 22:14 Dose: 5 mg Olanzapine (Olanzapine 10 Mg Vial) 5 mg IM DAILY PRN PRN Reason: Psychosis Trazodone HCl (Trazodone Hcl 25 Mg Halftab) 75 mg PO BEDTIME PRN PRN Reason: insomnia Last Admin: 10/04/24 22:43 Dose: 75 mg Allergies Allergies Allergy/AdvReac Type Severity Reaction Status Date / Time No Known Allergies Allergy Verified 09/20/24 21:56 Assessment & Plan Assessment & Plan (1) Schizophrenia: Status: Acute Code(s): F20.9 - Schizophrenia, unspecified (2) Chronic schizophrenia with acute exacerbation: Status: Acute Code(s): F20.9 - Schizophrenia, unspecified (3) Noncompliance with medications: Status: Acute Code(s): Z91.148 - Patient's other noncompliance with medication regimen for other reason Plan Presents with paranoia, hallucinations, HI and agitation in context of med non adherence and established diagnosis of SCZ. Plan: 1) S12 and Baldwin warning 2) Offer olanzapine 7.5mg bedtime and trazodone 75mg 09/23/24: encourage adherence to olanzapine 7.5mg bedtime 09/24/24 No current insight isolative mumbling refusing medication for psychosis 09/25/24 Was able to get secondary info from father pt had been threatening also quite disorganized mumbling difficulty taking care of himself does not recognize his psychiatric condition or need for tx will most likely file for commitment encourage tx compliance 09/26/2024 Paperwork filled out for court filing both mother and patient's father reports disorganized intrusive bizarre behavior intrusive with individuals yellows yelling screaming threatening grossly disorganized File for civil commitment and treatment plan family supportive 09/27/2024 Encourage therapeutic [place] have prescribed Invega with hope of eventually long-acting injectable patient continues guarded apprehensive poor insight and judgment 09/28/24 encourage tx compliance encourage invega 09/29: Continues psychotic and refusing treatment. Continue current management and treatment plan. 09/30: Encourage adherence. 12/01 continue tx. 10/02/2024 Patient continues to refuse treatment states he will not live with his parents has no interest in taking in information regarding psychiatric illness psychosis was able vaguely hear that marijuana may cause psychotic symptoms in volley[place] people did state in the past he had taken olanzapine he is aware of court hearing he has not been aggressive in this setting section [address] in treatment plan 10/03/2024 Patient's parents will reportedly testify in court hearing tomorrow. Patient refuses to accept any treatment or referrals stating he does not have any illness and wishes to just go to [place]. His insight judgment remain quite limited he is suspicious guarded with no ability to integrate prior behavior and why he ended up in a psychiatric hospital had been brought in by the police. Difficulty taking in information patient aware process of court hearing does not wish treatment does not wish to retract 10/04/2024 Start olanzapine 5 mg at bedtime per court order will hold off on IM olanzapine for tonight. Patient appears to understand terms of commitment Would benefit from long-acting injectable. Encourage medication of acceptance monitor response 10/05/2024 Start olanzapine 5 mg p.o. to give 5 mg IM if refuses options include increasing to 10 mg monitor for adverse effects but would most likely benefit from transition to Abilify which can be given as a long-acting injectable encourage less isolation encourage group social active patient has not been speaking with his parents. 10/06 continue with same treatment. 10/07 continue same treatment 10/08: poor insight. c/o s/e from medication such as grogginess, sedation, fuzzy thinking. T/C KAUFMAN. continue current mgmt for now. Time Spent With Patient Time: Total time managing care of this patient today ____ minutes.
[2024-10-08 19:40] VITALS: BP 138/90; PULSE 71; RESP 16; TEMP 36.9; O2SAT 96
[2024-10-08] MEDS: LORazepam 1 MG TABLET PO (21:44)
[2024-10-08] MEDS: OLANZapine 5 MG TABLET PO (21:44)
[2024-10-09 07:43] VITALS: BP 120/66; PULSE 61; RESP 16; TEMP 36.5; O2SAT 98
--- NOTE | 2024-10-09 16:09 | HO.PSYCHPN ---
Subjective Subjective Date of Service: 10/09/24 Reason For Visit: Paranoid Agitation Interim History: calm, cooperative. declines KAUFMAN. declines to switch to another antipsychotic. informed of ativan taper prior to discharge. per staff, denies dep/anx. constricted. not attending groups. eating 100%. Mental Status Exam Mental Status Exam Narrative: adequately dressed and groomed. cooperative. no PMA/PMR. speech nml rate, amount. somewhat mumbled at times. thoughts linear, logical. affect constricted. mood euthymic. no SI/HI/AVH expressed. poor insight. Diagnostics Vital Signs (24Hr): Vital Signs - 24 hr 10/08/24 19:40 10/09/24 07:43 Temperature 98.5 F 97.7 F Pulse Rate 71 61 Respiratory Rate 16 16 Blood Pressure 138/90 H 120/66 Pulse Oximetry 96 98 Oxygen Delivery Method Room Air Room Air BMI result Body Mass Index 25.6 Labs 09/21/24 00:33 09/22/24 08:36 Medications Medications Current Medications Acetaminophen (Acetaminophen 325 Mg Tablet) 650 mg PO Q6H PRN PRN Reason: Headache/Pain Mild Scale (1-3) Al Hydroxide/Mg Hydroxide (Magnesium Hydrox/Alum Hydrox 30 Ml Oral.Susp) 30 ml PO Q6H PRN PRN Reason: Heartburn/Nausea Hydroxyzine HCl (Hydroxyzine Hcl 25 Mg Tablet) 25 mg PO Q6H PRN PRN Reason: Anxiety Lorazepam (Lorazepam 0.5 Mg Tablet) 0.5 mg PO BEDTIME PRN PRN Reason: anxiety/restlessness Magnesium Hydroxide (Milk Of Magnesia 30 Ml Oral.Susp) 30 ml PO DAILY PRN PRN Reason: Constipation Olanzapine (Olanzapine 5 Mg Tablet) 5 mg PO BID PRN PRN Reason: Psychosis Olanzapine (Olanzapine 5 Mg Tablet) 5 mg PO BEDTIME CRISS Last Admin: 10/08/24 21:44 Dose: 5 mg Olanzapine (Olanzapine 10 Mg Vial) 5 mg IM DAILY PRN PRN Reason: Psychosis Trazodone HCl (Trazodone Hcl 25 Mg Halftab) 75 mg PO BEDTIME PRN PRN Reason: insomnia Last Admin: 10/04/24 22:43 Dose: 75 mg Allergies Allergies Allergy/AdvReac Type Severity Reaction Status Date / Time No Known Allergies Allergy Verified 09/20/24 21:56 Assessment & Plan Assessment & Plan (1) Schizophrenia: Status: Acute Code(s): F20.9 - Schizophrenia, unspecified (2) Chronic schizophrenia with acute exacerbation: Status: Acute Code(s): F20.9 - Schizophrenia, unspecified (3) Noncompliance with medications: Status: Acute Code(s): Z91.148 - Patient's other noncompliance with medication regimen for other reason Plan Presents with paranoia, hallucinations, HI and agitation in context of med non adherence and established diagnosis of SCZ. Plan: 1) S12 and Baldwin warning 2) Offer olanzapine 7.5mg bedtime and trazodone 75mg 09/23/24: encourage adherence to olanzapine 7.5mg bedtime 09/24/24 No current insight isolative mumbling refusing medication for psychosis 09/25/24 Was able to get secondary info from father pt had been threatening also quite disorganized mumbling difficulty taking care of himself does not recognize his psychiatric condition or need for tx will most likely file for commitment encourage tx compliance 09/26/2024 Paperwork filled out for court filing both mother and patient's father reports disorganized intrusive bizarre behavior intrusive with individuals yellows yelling screaming threatening grossly disorganized File for civil commitment and treatment plan family supportive 09/27/2024 Encourage therapeutic [place] have prescribed Invega with hope of eventually long-acting injectable patient continues guarded apprehensive poor insight and judgment 09/28/24 encourage tx compliance encourage invega 09/29: Continues psychotic and refusing treatment. Continue current management and treatment plan. 09/30: Encourage adherence. 12/01 continue tx. 10/02/2024 Patient continues to refuse treatment states he will not live with his parents has no interest in taking in information regarding psychiatric illness psychosis was able vaguely hear that marijuana may cause psychotic symptoms in volley[place] people did state in the past he had taken olanzapine he is aware of court hearing he has not been aggressive in this setting section [address] in treatment plan 10/03/2024 Patient's parents will reportedly testify in court hearing tomorrow. Patient refuses to accept any treatment or referrals stating he does not have any illness and wishes to just go to [place]. His insight judgment remain quite limited he is suspicious guarded with no ability to integrate prior behavior and why he ended up in a psychiatric hospital had been brought in by the police. Difficulty taking in information patient aware process of court hearing does not wish treatment does not wish to retract 10/04/2024 Start olanzapine 5 mg at bedtime per court order will hold off on IM olanzapine for tonight. Patient appears to understand terms of commitment Would benefit from long-acting injectable. Encourage medication of acceptance monitor response 10/05/2024 Start olanzapine 5 mg p.o. to give 5 mg IM if refuses options include increasing to 10 mg monitor for adverse effects but would most likely benefit from transition to Abilify which can be given as a long-acting injectable encourage less isolation encourage group social active patient has not been speaking with his parents. 10/06 continue with same treatment. 10/07 continue same treatment 10/08: poor insight. c/o s/e from medication such as grogginess, sedation, fuzzy thinking. T/C KAUFMAN. continue current mgmt for now. 10/09: declines switch to other neuroleptic, declines KAUFMAN. reports current zyprexa dosing is tolerable to him and he will take it daily after discharge. continue current mgmt, observe for stability and further improvements. Reason for continued inpatient stay Substantial Risk for: harm to self, harm to others, inability to function and rapid decompensation Time Spent With Patient Time: Total time managing care of this patient today _25___ minutes.
[2024-10-09 20:00] VITALS: BP 144/90; PULSE 64; RESP 16; TEMP 36.4; O2SAT 96
[2024-10-09] MEDS: OLANZapine 5 MG TABLET PO (20:28)
[2024-10-09] MEDS: LORazepam 0.5 MG TABLET PO (20:28)
[2024-10-10 07:32] VITALS: BP 121/68; PULSE 60; RESP 14; TEMP 36.5; O2SAT 98
--- NOTE | 2024-10-10 15:35 | P.PNPSI_ITS ---
Subjective Subjective Date of Service: 10/10/24 Reason For Visit: Paranoid Agitation Interim History: calm, cooperative. no complaints or requests. per staff, flat, withdrawn, guarded. TV eves. taking meds. slept 8 hours. Mental Status Exam Mental Status Exam Narrative: adequately dressed and groomed. cooperative. no PMA/PMR. speech nml rate, amount. somewhat mumbled at times. thoughts linear, logical. affect constricted. mood euthymic. no SI/HI/AVH expressed. poor insight. Diagnostics Vital Signs (24Hr): Vital Signs - 24 hr 10/09/24 20:00 10/10/24 07:32 Temperature 97.6 F 97.7 F Pulse Rate 64 60 Respiratory Rate 16 14 Blood Pressure 144/90 H 121/68 Pulse Oximetry 96 98 Oxygen Delivery Method Room Air Room Air BMI result Body Mass Index 25.6 Labs 09/21/24 00:33 09/22/24 08:36 Medications Medications Current Medications Acetaminophen (Acetaminophen 325 Mg Tablet) 650 mg PO Q6H PRN PRN Reason: Headache/Pain Mild Scale (1-3) Al Hydroxide/Mg Hydroxide (Magnesium Hydrox/Alum Hydrox 30 Ml Oral.Susp) 30 ml PO Q6H PRN PRN Reason: Heartburn/Nausea Hydroxyzine HCl (Hydroxyzine Hcl 25 Mg Tablet) 25 mg PO Q6H PRN PRN Reason: Anxiety Lorazepam (Lorazepam 0.5 Mg Tablet) 0.5 mg PO BEDTIME PRN PRN Reason: anxiety/restlessness Last Admin: 10/09/24 20:28 Dose: 0.5 mg Magnesium Hydroxide (Milk Of Magnesia 30 Ml Oral.Susp) 30 ml PO DAILY PRN PRN Reason: Constipation Olanzapine (Olanzapine 5 Mg Tablet) 5 mg PO BID PRN PRN Reason: Psychosis Olanzapine (Olanzapine 5 Mg Tablet) 5 mg PO BEDTIME CRISS Last Admin: 10/09/24 20:28 Dose: 5 mg Olanzapine (Olanzapine 10 Mg Vial) 5 mg IM DAILY PRN PRN Reason: Psychosis Trazodone HCl (Trazodone Hcl 25 Mg Halftab) 75 mg PO BEDTIME PRN PRN Reason: insomnia Last Admin: 10/04/24 22:43 Dose: 75 mg Allergies Allergies Allergy/AdvReac Type Severity Reaction Status Date / Time No Known Allergies Allergy Verified 09/20/24 21:56 Assessment & Plan Assessment & Plan (1) Schizophrenia: Status: Acute Code(s): F20.9 - Schizophrenia, unspecified (2) Chronic schizophrenia with acute exacerbation: Status: Acute Code(s): F20.9 - Schizophrenia, unspecified (3) Noncompliance with medications: Status: Acute Code(s): Z91.148 - Patient's other noncompliance with medication regimen for other reason Plan Presents with paranoia, hallucinations, HI and agitation in context of med non adherence and established diagnosis of SCZ. Plan: 1) S12 and Baldwin warning 2) Offer olanzapine 7.5mg bedtime and trazodone 75mg 09/23/24: encourage adherence to olanzapine 7.5mg bedtime 09/24/24 No current insight isolative mumbling refusing medication for psychosis 09/25/24 Was able to get secondary info from father pt had been threatening also quite disorganized mumbling difficulty taking care of himself does not recognize his psychiatric condition or need for tx will most likely file for commitment encourage tx compliance 09/26/20[address]work filled out for court filing both mother and patient's father reports disorganized intrusive bizarre behavior intrusive with individuals yellows yelling screaming threatening grossly disorganized File for civil commitment and treatment plan family supportive 09/27/2024 Encourage therapeutic [place] have prescribed Invega with hope of eventually long-acting injectable patient continues guarded apprehensive poor insight and judgment 09/28/24 encourage tx compliance encourage invega 09/29: Continues psychotic and refusing treatment. Continue current management and treatment plan. 09/30: Encourage adherence. 12/01 continue tx. 10/02/2024 Patient continues to refuse treatment states he will not live with his parents has no interest in taking in information regarding psychiatric illness psychosis was able vaguely hear that marijuana may cause psychotic symptoms in volleyball people did state in the past he had taken olanzapine he is aware of court hearing he has not been aggressive in this setting [address] in treatment plan 10/03/2024 Patient's parents will reportedly testify in court hearing tomorrow. Patient refuses to accept any treatment or referrals stating he does not have any illness and wishes to just go to [place]. His insight judgment remain quite limited he is suspicious guarded with no ability to integrate prior behavior and why he ended up in a psychiatric hospital had been brought in by the police. Difficulty taking in information patient aware process of court hearing does not wish treatment does not wish to retract 10/04/2024 Start olanzapine 5 mg at bedtime per court order will hold off on IM olanzapine for tonight. Patient appears to understand terms of commitment Would benefit from long-acting injectable. Encourage medication of acceptance monitor response 10/05/2024 Start olanzapine 5 mg p.o. to give 5 mg IM if refuses options include increasing to 10 mg monitor for adverse effects but would most likely benefit from transition to Abilify which can be given as a long-acting injectable encourage less isolation encourage group social active patient has not been speaking with his parents. 10/06 continue with same treatment. 10/07 continue same treatment 10/08: poor insight. c/o s/e from medication such as grogginess, sedation, fuzzy thinking. T/C KAUFMAN. continue current mgmt for now. 10/09: declines switch to other neuroleptic, declines KAUFMAN. reports current zyprexa dosing is tolerable to him and he will take it daily after discharge. continue current mgmt, observe for stability and further improvements. 10/10: stable presentation. continue current mgmt. Reason for continued inpatient stay Substantial Risk for: harm to self, harm to others, inability to function and rapid decompensation Time Spent With Patient Time: Total time managing care of this patient today _25___ minutes.
[2024-10-10 20:00] VITALS: BP 137/78; PULSE 62; RESP 16; TEMP 36.9; O2SAT 96
[2024-10-10] MEDS: LORazepam 0.5 MG TABLET PO (21:15)
[2024-10-10] MEDS: OLANZapine 5 MG TABLET PO (21:15)
[2024-10-11 07:52] VITALS: BP 130/70; PULSE 58; RESP 16; TEMP 36.5; O2SAT 99
[2024-10-11 13:10] VITALS: BMI 58.9
--- NOTE | 2024-10-11 13:34 | P.PNPSI_ITS ---
Subjective Subjective Date of Service: 10/11/24 Reason For Visit: Paranoid Agitation Interim History: calm, cooperative. feeling well. sleeping well. tolerating zyprexa. no complaints or requests. agreeable to DC ativan. aware of trazodone. per staff, appears anxious. not attending groups. quiet, isolative. taking meds. slept 8 hours. Mental Status Exam Mental Status Exam Narrative: adequately dressed and groomed. cooperative. no PMA/PMR. speech nml rate, amount. somewhat mumbled at times. thoughts linear, logical. affect constricted. mood euthymic. no SI/HI/AVH expressed. poor insight. Diagnostics Vital Signs (24Hr): Vital Signs - 24 hr 10/10/24 20:00 10/11/24 07:52 Temperature 98.5 F 97.7 F Pulse Rate 62 58 Respiratory Rate 16 16 Blood Pressure 137/78 130/70 Pulse Oximetry 96 99 Oxygen Delivery Method Room Air Room Air BMI result Body Mass Index 58.9 Labs 09/21/24 00:33 09/22/24 08:36 Medications Medications Current Medications Acetaminophen (Acetaminophen 325 Mg Tablet) 650 mg PO Q6H PRN PRN Reason: Headache/Pain Mild Scale (1-3) Al Hydroxide/Mg Hydroxide (Magnesium Hydrox/Alum Hydrox 30 Ml Oral.Susp) 30 ml PO Q6H PRN PRN Reason: Heartburn/Nausea Hydroxyzine HCl (Hydroxyzine Hcl 25 Mg Tablet) 25 mg PO Q6H PRN PRN Reason: Anxiety Magnesium Hydroxide (Milk Of Magnesia 30 Ml Oral.Susp) 30 ml PO DAILY PRN PRN Reason: Constipation Olanzapine (Olanzapine 5 Mg Tablet) 5 mg PO BID PRN PRN Reason: Psychosis Olanzapine (Olanzapine 5 Mg Tablet) 5 mg PO BEDTIME CRISS Last Admin: 10/10/24 21:15 Dose: 5 mg Olanzapine (Olanzapine 10 Mg Vial) 5 mg IM DAILY PRN PRN Reason: Psychosis Trazodone HCl (Trazodone Hcl 25 Mg Halftab) 75 mg PO BEDTIME PRN PRN Reason: insomnia Last Admin: 10/04/24 22:43 Dose: 75 mg Allergies Allergies Allergy/AdvReac Type Severity Reaction Status Date / Time No Known Allergies Allergy Verified 09/20/24 21:56 Assessment & Plan Assessment & Plan (1) Schizophrenia: Status: Acute Code(s): F20.9 - Schizophrenia, unspecified (2) Chronic schizophrenia with acute exacerbation: Status: Acute Code(s): F20.9 - Schizophrenia, unspecified (3) Noncompliance with medications: Status: Acute Code(s): Z91.148 - Patient's other noncompliance with medication regimen for other reason Plan Presents with paranoia, hallucinations, HI and agitation in context of med non adherence and established diagnosis of SCZ. Plan: 1) S12 and Baldwin warning 2) Offer olanzapine 7.5mg bedtime and trazodone 75mg 09/23/24: encourage adherence to olanzapine 7.5mg bedtime 09/24/24 No current insight isolative mumbling refusing medication for psychosis 09/25/24 Was able to get secondary info from father pt had been threatening also quite disorganized mumbling difficulty taking care of himself does not recognize his psychiatric condition or need for tx will most likely file for commitment encourage tx compliance 09/26/2024 Paperwork filled out for court filing both mother and patient's father reports disorganized intrusive bizarre behavior intrusive with individuals yellows yelling screaming threatening grossly disorganized File for civil commitment and treatment plan family supportive 09/27/2024 Encourage therapeutic [place] have prescribed Invega with hope of eventually long-acting injectable patient continues guarded apprehensive poor insight and judgment 09/28/24 encourage tx compliance encourage invega 09/29: Continues psychotic and refusing treatment. Continue current management and treatment plan. 09/30: Encourage adherence. 12/01 continue tx. 10/02/2024 Patient continues to refuse treatment states he will not live with his parents has no interest in taking in information regarding psychiatric illness psychosis was able vaguely hear that marijuana may cause psychotic symptoms in volley[place] people did state in the past he had taken olanzapine he is aware of court hearing he has not been aggressive in this setting [address] in treatment plan 10/03/2024 Patient's parents will reportedly testify in court hearing tomorrow. Patient refuses to accept any treatment or referrals stating he does not have any illness and wishes to just go to [place]. His insight judgment remain quite limited he is suspicious guarded with no ability to integrate prior behavior and why he ended up in a psychiatric hospital had been brought in by the police. Difficulty taking in information patient aware process of court hearing does not wish treatment does not wish to retract 10/04/2024 Start olanzapine 5 mg at bedtime per court order will hold off on IM olanzapine for tonight. Patient appears to understand terms of commitment Would benefit from long-acting injectable. Encourage medication of acceptance monitor response 10/05/2024 Start olanzapine 5 mg p.o. to give 5 mg IM if refuses options include increasing to 10 mg monitor for adverse effects but would most likely benefit from transition to Abilify which can be given as a long-acting injectable encourage less isolation encourage group social active patient has not been speaking with his parents. 10/06 continue with same treatment. 10/07 continue same treatment 10/08: poor insight. c/o s/e from medication such as grogginess, sedation, fuzzy thinking. T/C KAUFMAN. continue current mgmt for now. 10/09: declines switch to other neuroleptic, declines KAUFMAN. reports current zyprexa dosing is tolerable to him and he will take it daily after discharge. continue current mgmt, observe for stability and further improvements. 10/10: stable presentation. continue current mgmt. 10/11: DC ativan PRN. continue mgmt otherwise. pt reports he is tolerating regimen well. Reason for continued inpatient stay Substantial Risk for: harm to self, harm to others, inability to function and rapid decompensation Time Spent With Patient Time: Total time managing care of this patient today __25__ minutes.
[2024-10-11 19:30] VITALS: BP 132/77; PULSE 80; RESP 16; TEMP 36.8; O2SAT 97
[2024-10-11] MEDS: OLANZapine 5 MG TABLET PO ×2 (22:16)
[2024-10-12 07:31] VITALS: BP 112/58; PULSE 62; RESP 16; TEMP 36.6; O2SAT 98
--- NOTE | 2024-10-12 15:35 | P.PNPSI_ITS ---
Subjective Subjective Date of Service: 10/12/24 Reason For Visit: Paranoid Agitation Interim History: calm, cooperative. appears tense. no complaints or requests. recanted statement replayed by staffing executive wherein pt indicated he felt the medication was helpful to clear his thoughts. reports he is sleeping well and medication is fine. per staff, no issues, meds making my thinking clear. Mental Status Exam Mental Status Exam Narrative: adequately dressed and groomed. cooperative. no PMA/PMR. speech nml rate, amount. somewhat mumbled at times. thoughts linear, logical. affect constricted. mood euthymic. no SI/HI/AVH expressed. poor insight. Diagnostics Vital Signs (24Hr): Vital Signs - 24 hr 10/11/24 19:30 10/12/24 07:31 Temperature 98.3 F 97.8 F Pulse Rate 80 62 Respiratory Rate 16 16 Blood Pressure 132/77 112/58 L Pulse Oximetry 97 98 Oxygen Delivery Method Room Air Room Air BMI result Body Mass Index 58.9 Labs 09/21/24 00:33 09/22/24 08:36 Medications Medications Current Medications Acetaminophen (Acetaminophen 325 Mg Tablet) 650 mg PO Q6H PRN PRN Reason: Headache/Pain Mild Scale (1-3) Al Hydroxide/Mg Hydroxide (Magnesium Hydrox/Alum Hydrox 30 Ml Oral.Susp) 30 ml PO Q6H PRN PRN Reason: Heartburn/Nausea Hydroxyzine HCl (Hydroxyzine Hcl 25 Mg Tablet) 25 mg PO Q6H PRN PRN Reason: Anxiety Magnesium Hydroxide (Milk Of Magnesia 30 Ml Oral.Susp) 30 ml PO DAILY PRN PRN Reason: Constipation Nicotine Polacrilex (Nicotine Polacrilex 2 Mg Gum) 4 mg BUCCAL Q2H PRN PRN Reason: Nicotine Cravings Olanzapine (Olanzapine 5 Mg Tablet) 5 mg PO BID PRN PRN Reason: Psychosis Last Admin: 10/11/24 22:16 Dose: 5 mg Olanzapine (Olanzapine 5 Mg Tablet) 5 mg PO BEDTIME CRISS Last Admin: 10/11/24 22:16 Dose: 5 mg Olanzapine (Olanzapine 10 Mg Vial) 5 mg IM DAILY PRN PRN Reason: Psychosis Trazodone HCl (Trazodone Hcl 25 Mg Halftab) 75 mg PO BEDTIME PRN PRN Reason: insomnia Last Admin: 10/04/24 22:43 Dose: 75 mg Allergies Allergies Allergy/AdvReac Type Severity Reaction Status Date / Time No Known Allergies Allergy Verified 09/20/24 21:56 Assessment & Plan Assessment & Plan (1) Schizophrenia: Status: Acute Code(s): F20.9 - Schizophrenia, unspecified (2) Chronic schizophrenia with acute exacerbation: Status: Acute Code(s): F20.9 - Schizophrenia, unspecified (3) Noncompliance with medications: Status: Acute Code(s): Z91.148 - Patient's other noncompliance with medication regimen for other reason Plan Presents with paranoia, hallucinations, HI and agitation in context of med non adherence and established diagnosis of SCZ. Plan: 1) S12 and Baldwin warning 2) Offer olanzapine 7.5mg bedtime and trazodone 75mg 09/23/24: encourage adherence to olanzapine 7.5mg bedtime 09/24/24 No current insight isolative mumbling refusing medication for psychosis 09/25/24 Was able to get secondary info from father pt had been threatening also quite disorganized mumbling difficulty taking care of himself does not recognize his psychiatric condition or need for tx will most likely file for commitment encourage tx compliance 09/26/2024 Paperwork filled out for court filing both mother and patient's father reports disorganized intrusive bizarre behavior intrusive with individuals yellows yelling screaming threatening grossly disorganized File for civil commitment and treatment plan family supportive 09/27/2024 Encourage therapeutic [place] have prescribed Invega with hope of eventually long-acting injectable patient continues guarded apprehensive poor insight and judgment 09/28/24 encourage tx compliance encourage invega 09/29: Continues psychotic and refusing treatment. Continue current management and treatment plan. 09/30: Encourage adherence. 12/01 continue tx. 10/02/2024 Patient continues to refuse treatment states he will not live with his parents has no interest in taking in information regarding psychiatric illness psychosis was able vaguely hear that marijuana may cause psychotic symptoms in volley[place] people did state in the past he had taken olanzapine he is aware of court hearing he has not been aggressive in this setting [address] in treatment plan 10/03/2024 Patient's parents will reportedly testify in court hearing tomorrow. Patient refuses to accept any treatment or referrals stating he does not have any illness and wishes to just go to [place]. His insight judgment remain quite limited he is suspicious guarded with no ability to integrate prior behavior and why he ended up in a psychiatric hospital had been brought in by the police. Difficulty taking in information patient aware process of court hearing does not wish treatment does not wish to retract 10/04/2024 Start olanzapine 5 mg at bedtime per court order will hold off on IM olanzapine for tonight. Patient appears to understand terms of commitment Would benefit from long-acting injectable. Encourage medication of acceptance monitor response 10/05/2024 Start olanzapine 5 mg p.o. to give 5 mg IM if refuses options include increasing to 10 mg monitor for adverse effects but would most likely benefit from transition to Abilify which can be given as a long-acting injectable encourage less isolation encourage group social active patient has not been speaking with his parents. 10/06 continue with same treatment. 10/07 continue same treatment 10/08: poor insight. c/o s/e from medication such as grogginess, sedation, fuzzy thinking. T/C KAUFMAN. continue current mgmt for now. 10/09: declines switch to other neuroleptic, declines KAUFMAN. reports current zyprexa dosing is tolerable to him and he will take it daily after discharge. continue current mgmt, observe for stability and further improvements. 10/10: stable presentation. continue current mgmt. 10/11: DC ativan PRN. continue mgmt otherwise. pt reports he is tolerating regimen well. 10/12: stable. no change in mgmt. Reason for continued inpatient stay Substantial Risk for: harm to others, inability to function and rapid decompensation Time Spent With Patient Time: Total time managing care of this patient today _25___ minutes.
[2024-10-12 20:06] VITALS: BP 147/76; PULSE 75; RESP 16; TEMP 36.7; O2SAT 97
[2024-10-12] MEDS: OLANZapine 5 MG TABLET PO ×2 (21:37)
[2024-10-12] MEDS: traZODone HCL 25 MG HALFTAB 75 MG PO (21:39)
[2024-10-12] MEDS: Nicotine Polacrilex 2 MG GUM 4 MG BUCCAL (21:39)
[2024-10-13 08:00] VITALS: BP 116/59; PULSE 62; RESP 16; TEMP 36.4; O2SAT 98
[2024-10-13 19:18] VITALS: BP 133/80; PULSE 72; RESP 16; TEMP 36.4; O2SAT 97
--- NOTE | 2024-10-13 20:16 | HO.PSYCHPN ---
Subjective Subjective Date of Service: 10/13/24 Reason For Visit: Paranoid Agitation Interim History: calm, cooperative. no change in presentation. continue current mgmt. per staff, slept 8 hours. fidgety. a little anxious and a little depressed. Mental Status Exam Mental Status Exam Narrative: adequately dressed and groomed. cooperative. no PMA/PMR. speech nml rate, amount. somewhat mumbled at times. thoughts linear, logical. affect constricted. mood euthymic. no SI/HI/AVH expressed. poor insight. Diagnostics Vital Signs (24Hr): Vital Signs - 24 hr 10/13/24 08:00 Temperature 97.6 F Pulse Rate 62 Respiratory Rate 16 Blood Pressure 116/59 L Pulse Oximetry 98 Oxygen Delivery Method Room Air BMI result Body Mass Index 58.9 Labs 09/21/24 00:33 09/22/24 08:36 Medications Medications Current Medications Acetaminophen (Acetaminophen 325 Mg Tablet) 650 mg PO Q6H PRN PRN Reason: Headache/Pain Mild Scale (1-3) Al Hydroxide/Mg Hydroxide (Magnesium Hydrox/Alum Hydrox 30 Ml Oral.Susp) 30 ml PO Q6H PRN PRN Reason: Heartburn/Nausea Hydroxyzine HCl (Hydroxyzine Hcl 25 Mg Tablet) 25 mg PO Q6H PRN PRN Reason: Anxiety Magnesium Hydroxide (Milk Of Magnesia 30 Ml Oral.Susp) 30 ml PO DAILY PRN PRN Reason: Constipation Nicotine Polacrilex (Nicotine Polacrilex 2 Mg Gum) 4 mg BUCCAL Q2H PRN PRN Reason: Nicotine Cravings Last Admin: 10/12/24 21:39 Dose: 4 mg Olanzapine (Olanzapine 5 Mg Tablet) 5 mg PO BID PRN PRN Reason: Psychosis Last Admin: 10/12/24 21:37 Dose: 5 mg Olanzapine (Olanzapine 5 Mg Tablet) 5 mg PO BEDTIME CRISS Last Admin: 10/12/24 21:37 Dose: 5 mg Olanzapine (Olanzapine 10 Mg Vial) 5 mg IM DAILY PRN PRN Reason: Psychosis Trazodone HCl (Trazodone Hcl 25 Mg Halftab) 75 mg PO BEDTIME PRN PRN Reason: insomnia Last Admin: 10/12/24 21:39 Dose: 75 mg Allergies Allergies Allergy/AdvReac Type Severity Reaction Status Date / Time No Known Allergies Allergy Verified 09/20/24 21:56 Assessment & Plan Assessment & Plan (1) Schizophrenia: Status: Acute Code(s): F20.9 - Schizophrenia, unspecified (2) Chronic schizophrenia with acute exacerbation: Status: Acute Code(s): F20.9 - Schizophrenia, unspecified (3) Noncompliance with medications: Status: Acute Code(s): Z91.148 - Patient's other noncompliance with medication regimen for other reason Plan Presents with paranoia, hallucinations, HI and agitation in context of med non adherence and established diagnosis of SCZ. Plan: 1) S12 and Baldwin warning 2) Offer olanzapine 7.5mg bedtime and trazodone 75mg 09/23/24: encourage adherence to olanzapine 7.5mg bedtime 09/24/24 No current insight isolative mumbling refusing medication for psychosis 09/25/24 Was able to get secondary info from father pt had been threatening also quite disorganized mumbling difficulty taking care of himself does not recognize his psychiatric condition or need for tx will most likely file for commitment encourage tx compliance 09/26/2024 Paperwork filled out for court filing both mother and patient's father reports disorganized intrusive bizarre behavior intrusive with individuals yellows yelling screaming threatening grossly disorganized File for civil commitment and treatment plan family supportive 09/27/2024 Encourage therapeutic [place] have prescribed Invega with hope of eventually long-acting injectable patient continues guarded apprehensive poor insight and judgment 09/28/24 encourage tx compliance encourage invega 09/29: Continues psychotic and refusing treatment. Continue current management and treatment plan. 09/30: Encourage adherence. 12/01 continue tx. 10/02/2024 Patient continues to refuse treatment states he will not live with his parents has no interest in taking in information regarding psychiatric illness psychosis was able vaguely hear that marijuana may cause psychotic symptoms in volley[place] people did state in the past he had taken olanzapine he is aware of court hearing he has not been aggressive in this setting section [address] in treatment plan 10/03/2024 Patient's parents will reportedly testify in court hearing tomorrow. Patient refuses to accept any treatment or referrals stating he does not have any illness and wishes to just go to [place]. His insight judgment remain quite limited he is suspicious guarded with no ability to integrate prior behavior and why he ended up in a psychiatric hospital had been brought in by the police. Difficulty taking in information patient aware process of court hearing does not wish treatment does not wish to retract 10/04/2024 Start olanzapine 5 mg at bedtime per court order will hold off on IM olanzapine for tonight. Patient appears to understand terms of commitment Would benefit from long-acting injectable. Encourage medication of acceptance monitor response 10/05/2024 Start olanzapine 5 mg p.o. to give 5 mg IM if refuses options include increasing to 10 mg monitor for adverse effects but would most likely benefit from transition to Abilify which can be given as a long-acting injectable encourage less isolation encourage group social active patient has not been speaking with his parents. 10/06 continue with same treatment. 10/07 continue same treatment 10/08: poor insight. c/o s/e from medication such as grogginess, sedation, fuzzy thinking. T/C KAUFMAN. continue current mgmt for now. 10/09: declines switch to other neuroleptic, declines KAUFMAN. reports current zyprexa dosing is tolerable to him and he will take it daily after discharge. continue current mgmt, observe for stability and further improvements. 10/10: stable presentation. continue current mgmt. 10/11: DC ativan PRN. continue mgmt otherwise. pt reports he is tolerating regimen well. 10/12: stable. no change in mgmt. 10/13: stable, continue current mgmt. Reason for continued inpatient stay Substantial Risk for: inability to function and rapid decompensation Time Spent With Patient Time: Total time managing care of this patient today ____ minutes.
[2024-10-13] MEDS: OLANZapine 5 MG TABLET PO ×2 (22:31)
[2024-10-13] MEDS: Nicotine Polacrilex 2 MG GUM 4 MG BUCCAL (22:31)
[2024-10-13] MEDS: traZODone HCL 25 MG HALFTAB 75 MG PO (22:31)
[2024-10-14 08:00] VITALS: RESP 18
--- NOTE | 2024-10-14 18:02 | HO.PSYCHPN ---
Subjective Subjective Date of Service: 10/14/24 Reason For Visit: Paranoid Agitation Interim History: no change in presentation. planning for discharge this week. denies side effects. sleeping and eating OK. regular BMs. per staff, decreased eye contact. watching TV. withdrawn. Mental Status Exam Mental Status Exam Narrative: adequately dressed and groomed. cooperative. no PMA/PMR. speech nml rate, amount. somewhat mumbled at times and decreased loudness. thoughts linear, logical. affect constricted. mood euthymic. no SI/HI/AVH expressed. poor insight. Diagnostics Vital Signs (24Hr): Vital Signs - 24 hr 10/13/24 19:18 10/14/24 08:00 Temperature 97.6 F Pulse Rate 72 Respiratory Rate 16 18 Blood Pressure 133/80 Pulse Oximetry 97 Oxygen Delivery Method Room Air BMI result Body Mass Index 58.9 Labs 09/21/24 00:33 09/22/24 08:36 Medications Medications Current Medications Acetaminophen (Acetaminophen 325 Mg Tablet) 650 mg PO Q6H PRN PRN Reason: Headache/Pain Mild Scale (1-3) Al Hydroxide/Mg Hydroxide (Magnesium Hydrox/Alum Hydrox 30 Ml Oral.Susp) 30 ml PO Q6H PRN PRN Reason: Heartburn/Nausea Hydroxyzine HCl (Hydroxyzine Hcl 25 Mg Tablet) 25 mg PO Q6H PRN PRN Reason: Anxiety Magnesium Hydroxide (Milk Of Magnesia 30 Ml Oral.Susp) 30 ml PO DAILY PRN PRN Reason: Constipation Nicotine Polacrilex (Nicotine Polacrilex 2 Mg Gum) 4 mg BUCCAL Q2H PRN PRN Reason: Nicotine Cravings Last Admin: 10/13/24 22:31 Dose: 4 mg Olanzapine (Olanzapine 5 Mg Tablet) 5 mg PO BID PRN PRN Reason: Psychosis Last Admin: 10/13/24 22:31 Dose: 5 mg Olanzapine (Olanzapine 5 Mg Tablet) 5 mg PO BEDTIME CRISS Last Admin: 10/13/24 22:31 Dose: 5 mg Olanzapine (Olanzapine 10 Mg Vial) 5 mg IM DAILY PRN PRN Reason: Psychosis Trazodone HCl (Trazodone Hcl 25 Mg Halftab) 75 mg PO BEDTIME PRN PRN Reason: insomnia Last Admin: 10/13/24 22:31 Dose: 75 mg Allergies Allergies Allergy/AdvReac Type Severity Reaction Status Date / Time No Known Allergies Allergy Verified 09/20/24 21:56 Assessment & Plan Assessment & Plan (1) Schizophrenia: Status: Acute Code(s): F20.9 - Schizophrenia, unspecified (2) Chronic schizophrenia with acute exacerbation: Status: Acute Code(s): F20.9 - Schizophrenia, unspecified (3) Noncompliance with medications: Status: Acute Code(s): Z91.148 - Patient's other noncompliance with medication regimen for other reason Plan Presents with paranoia, hallucinations, HI and agitation in context of med non adherence and established diagnosis of SCZ. Plan: 1) S12 and Baldwin warning 2) Offer olanzapine 7.5mg bedtime and trazodone 75mg 09/23/24: encourage adherence to olanzapine 7.5mg bedtime 09/24/24 No current insight isolative mumbling refusing medication for psychosis 09/25/24 Was able to get secondary info from father pt had been threatening also quite disorganized mumbling difficulty taking care of himself does not recognize his psychiatric condition or need for tx will most likely file for commitment encourage tx compliance 09/26/2024 Paperwork filled out for court filing both mother and patient's father reports disorganized intrusive bizarre behavior intrusive with individuals yellows yelling screaming threatening grossly disorganized File for civil commitment and treatment plan family supportive 09/27/2024 Encourage therapeutic [place] have prescribed Invega with hope of eventually long-acting injectable patient continues guarded apprehensive poor insight and judgment 09/28/24 encourage tx compliance encourage invega 09/29: Continues psychotic and refusing treatment. Continue current management and treatment plan. 09/30: Encourage adherence. 12/01 continue tx. 10/02/2024 Patient continues to refuse treatment states he will not live with his parents has no interest in taking in information regarding psychiatric illness psychosis was able vaguely hear that marijuana may cause psychotic symptoms in volleyball people did state in the past he had taken olanzapine he is aware of court hearing he has not been aggressive in this setting [address] in treatment plan 10/03/2024 Patient's parents will reportedly testify in court hearing tomorrow. Patient refuses to accept any treatment or referrals stating he does not have any illness and wishes to just go to [place]. His insight judgment remain quite limited he is suspicious guarded with no ability to integrate prior behavior and why he ended up in a psychiatric hospital had been brought in by the police. Difficulty taking in information patient aware process of court hearing does not wish treatment does not wish to retract 10/04/2024 Start olanzapine 5 mg at bedtime per court order will hold off on IM olanzapine for tonight. Patient appears to understand terms of commitment Would benefit from long-acting injectable. Encourage medication of acceptance monitor response 10/05/2024 Start olanzapine 5 mg p.o. to give 5 mg IM if refuses options include increasing to 10 mg monitor for adverse effects but would most likely benefit from transition to Abilify which can be given as a long-acting injectable encourage less isolation encourage group social active patient has not been speaking with his parents. 10/06 continue with same treatment. 10/07 continue same treatment 10/08: poor insight. c/o s/e from medication such as grogginess, sedation, fuzzy thinking. T/C KAUFMAN. continue current mgmt for now. 10/09: declines switch to other neuroleptic, declines KAUFMAN. reports current zyprexa dosing is tolerable to him and he will take it daily after discharge. continue current mgmt, observe for stability and further improvements. 10/10: stable presentation. continue current mgmt. 10/11: DC ativan PRN. continue mgmt otherwise. pt reports he is tolerating regimen well. 10/12: stable. no change in mgmt. 10/13: stable, continue current mgmt. 10/14: stable, denies side effects. continue current mgmt. Reason for continued inpatient stay Substantial Risk for: rapid decompensation Time Spent With Patient Time: Total time managing care of this patient today ____ minutes.
[2024-10-14] MEDS: Nicotine Polacrilex 2 MG GUM 4 MG BUCCAL (19:45)
[2024-10-14 20:00] VITALS: BP 129/82; PULSE 107; RESP 16; TEMP 36.9; O2SAT 99
[2024-10-14] MEDS: traZODone HCL 25 MG HALFTAB 75 MG PO (21:50)
[2024-10-14] MEDS: OLANZapine 5 MG TABLET PO ×2 (21:50)
[2024-10-14] MEDS: Magnesium Hydrox/Alum Hydrox 30 ML ORAL.SUSP PO (21:58)
[2024-10-15 07:33] VITALS: BP 110/56; PULSE 64; RESP 16; TEMP 36.4; O2SAT 98
--- NOTE | 2024-10-15 13:28 | PM.PSYDC ---
DS: Providers Provider Date of Service: 10/15/24 Date of admission: 09/21/24 17:09 Primary care physician: Nova Wynne MD Consults: 09/21/24 00:24 Consult to Care Team Stat Comment: Reason for consultation: HI to family Has provider been notified: No DS: Diagnosis Discharge Diagnosis (1) Schizophrenia: Status: Acute (2) Chronic schizophrenia with acute exacerbation: Status: Acute (3) Noncompliance with medications: Status: Acute DS: Medications Discharge Medications Home Medications: Home Medications ?Medication ?Instructions ?Recorded ?Confirmed hydroxyzine pamoate 50 mg capsule 50 mg PO TID PRN anxiety 09/21/24 09/21/24 trazodone 50 mg tablet 75 mg PO BEDTIME PRN insomnia 09/21/24 09/21/24 Previous Rx's ?Medication ?Instructions ?Recorded olanzapine 5 mg tablet 5 mg PO BEDTIME 30 days #30 tabs 10/15/24 Mental Status Exam Mental Status Exam Narrative: adequately dressed and groomed. cooperative. no PMA/PMR. speech nml rate, amount. somewhat mumbled at times and decreased loudness. thoughts linear, logical. affect constricted. mood neutral. no SI/HI/AVH. poor insight. DS: Summary Hospital Course Hospital Course: per 09/22 admission note: HPI Subjective Notes: Baldwin Warning and Section 12B Narrative: As per ED Note 09/20/24: Patient comes to the emergency room via section 12 and accompanied by police department. According to PD, patient was very agitated, yelling that he was going to kill his parents. According to the patient, he has not been med compliant for several days. However, patient has not picked up his medications for the last 7 months. Patient denies SI or HI. When I asked the patient about the incident when he was yelling that he was going to hurt his parents, patient said that it was just anger and nonsense Today: Presents as internally preoccupied, guarded, paranoid and endorses AH they say funny things sometimes (denied command). Also makes unusual hand gestures at times. Adamantly denies SI or HI I can say mean things sometimes, but not that . Ref admission circumstances I was a little loud taking a shower. Saying a bunch of nonsense . Unable to fully elaborate amd is thought disordered at times. Reports olanzapine 7.5mg in the past as needed if I cant sleep , has not taken x 1 week (noted ED notes ref scripts not picked up). Trazodone is helpful. Does not want to take olanzapine scheduled, but aware it will be offered in case he changes his mind. Past Psychiatric History: Chart- diagnosis of SCZ as per CARES team kevin. Pt very guarded ref details. Denied history of silvestre, suicide attempts or violence. ?[facility] services years ago . Inpt history but reluctant to discuss details or history- same with meds. Reports olanzapine 7.5mg in the past as needed if I cant sleep , has not taken x 1 week (noted ED notes ref scripts not picked up). Trazodone is helpful Medical Evaluation Reviewed: Yes PMFSH Social History: Lives with parents and 2 adult siblings (27 and 23). Last worked at [employer] in Spring 2023. Single. No children. Denied legal issues. Substance History: denied. MJ positive Precis: Presents with paranoia, hallucinations, HI and agitation in context of med non adherence and established diagnosis of SCZ. 09/22: S12 and Baldwin warning. Offer olanzapine 7.5mg bedtime and trazodone 75mg 09/23/24: encourage adherence to olanzapine 7.5mg bedtime 09/24/24 No current insight isolative mumbling refusing medication for psychosis 09/25/24 Was able to get secondary info from father pt had been threatening also quite disorganized mumbling difficulty taking care of himself does not recognize his psychiatric condition or need for tx will most likely file for commitment encourage tx compliance 09/26/2024 Paperwork filled out for court filing both mother and patient's father reports disorganized intrusive bizarre behavior intrusive with individuals yellows yelling screaming threatening grossly disorganized File for civil commitment and treatment plan family supportive 09/27/2024 Encourage therapeutic [place] have prescribed Invega with hope of eventually long-acting injectable patient continues guarded apprehensive poor insight and judgment 09/28/24 encourage tx compliance encourage invega 09/29: Continues psychotic and refusing treatment. Continue current management and treatment plan. 09/30: Encourage adherence. 12/01 continue tx. 10/02/2024 Patient continues to refuse treatment states he will not live with his parents has no interest in taking in information regarding psychiatric illness psychosis was able vaguely hear that marijuana may cause psychotic symptoms in volleyball people did state in the past he had taken olanzapine he is aware of court hearing he has not been aggressive in this setting section [address] in treatment plan 10/03/2024 Patient's parents will reportedly testify in court hearing tomorrow. Patient refuses to accept any treatment or referrals stating he does not have any illness and wishes to just go to [place]. His insight judgment remain quite limited he is suspicious guarded with no ability to integrate prior behavior and why he ended up in a psychiatric hospital had been brought in by the police. Difficulty taking in information patient aware process of court hearing does not wish treatment does not wish to retract 10/04/2024 Start olanzapine 5 mg at bedtime per court order will hold off on IM olanzapine for tonight. Patient appears to understand terms of commitment Would benefit from long-acting injectable. Encourage medication of acceptance monitor response 10/05/2024 Start olanzapine 5 mg p.o. to give 5 mg IM if refuses options include increasing to 10 mg monitor for adverse effects but would most likely benefit from transition to Abilify which can be given as a long-acting injectable encourage less isolation encourage group social active patient has not been speaking with his parents. 10/06 continue with same treatment. 10/07 continue same treatment 10/08: poor insight. c/o s/e from medication such as grogginess, sedation, fuzzy thinking. T/C KAUFMAN. continue current mgmt for now. 10/09: declines switch to other neuroleptic, declines KAUFMAN. reports current zyprexa dosing is tolerable to him and he will take it daily after discharge. continue current mgmt, observe for stability and further improvements. 10/10: stable presentation. continue current mgmt. 10/11: DC ativan PRN. continue mgmt otherwise. pt reports he is tolerating regimen well. 10/12: stable. no change in mgmt. 10/13: stable, continue current mgmt. 10/14: stable, denies side effects. continue current mgmt. 10/15: continue calm, stable, denying psychotic Sx. per staff report, however, some AH: i still hear things, just not as much. meds reviewed, reconciled, prescribed. discharge tomorrow. 10/16: stable, safe overnight. discharged as per plan. Time Spent with Patient Time attestation: Total time managing care of this patient today __35__ minutes. Discharge Plan Discharge Anticipated Discharge Date/Time: 10/16/24 11:00 Patient Disposition: Home, Self-Care Discharge Diagnosis: Schizophrenia Referrals: Nova Wynne MD [Primary Care Provider] - 1 Week Discharge Medications: New olanzapine 5 mg Tablet 5 mg PO BEDTIME 30 Days Qty: 30 0RF Continued trazodone 50 mg tablet 75 mg PO BEDTIME PRN (Reason: insomnia) hydroxyzine pamoate 50 mg capsule 50 mg PO TID PRN (Reason: anxiety) Discontinued olanzapine 7.5 mg tablet 7.5 mg PO BEDTIME Discharge Orders: Discharge Order (Routine); Ordered 10/16/24 Ordered By: Angel Miranda Diet: Advance to usual diet Activity on Discharge: As tolerated Stand Alone Forms: Patient Portal Discharge page Print Language: Hebrew Care Plan Goals: remain safe and stable in the outpatient treatment setting Health Concerns: none Plan of Treatment: take medications as prescribed, attend appointments as scheduled Assessment: not at imminent risk of harm to self or others
[2024-10-15 20:00] VITALS: BP 139/70; PULSE 80; RESP 16; TEMP 37.3; O2SAT 95
[2024-10-15] MEDS: OLANZapine 5 MG TABLET PO (21:42)
[2024-10-15] MEDS: Nicotine Polacrilex 2 MG GUM 4 MG BUCCAL (21:44)
[2024-10-16 07:55] VITALS: BP 100/67; PULSE 60; RESP 14; TEMP 36.5; O2SAT 97
== END 2024-10-16 10:50 | disposition home or self-care (01) | DRG 750 ==
LOC: HO.ED 09-21 08:16 → HO.PADLT16 09-21 17:22
PROVIDERS: Emergency Medicine; Admitting Provider Psychiatry & Neurology Psychiatry; Emergency Provider Emergency Medicine Emergency Medical Services; PCP Internal Medicine; Visit Provider Psychiatry & Neurology Psychiatry
DX: F20.9 Schizophrenia, unspecified (principal); R45.851 Suicidal ideations; R45.850 Homicidal ideations; Z91.148 Patient's other noncompliance with medication regimen for other reason; Z79.899 Other long term (current) drug therapy
CPT/HCPCS: 36415; 80053; 80061; 80143; 80179; 80307; 81003; 85025; 93005; 99285; S9485

== ENCOUNTER → 2024-09-21 08:04 | Outpatient (BNV) | payer OTHER, SELFPAY | PROVIDERS: Admitting Provider Psychiatry & Neurology Psychiatry; Emergency Provider Emergency Medicine Emergency Medical Services; PCP Internal Medicine; Visit Provider Internal Medicine | DX: R00.1 Bradycardia, unspecified (principal) | CPT/HCPCS: 93010 ==

== ENCOUNTER → 2024-09-21 17:09 | Outpatient (BNV) | payer OTHER, SELFPAY | PROVIDERS: Admitting Provider Psychiatry & Neurology Psychiatry; Emergency Provider Emergency Medicine Emergency Medical Services; PCP Internal Medicine; Visit Provider Psychiatry & Neurology Psychiatry | DX: F20.0 Paranoid schizophrenia (principal); Z91.148 Patient's other noncompliance with medication regimen for other reason | CPT/HCPCS: 90792; 99231; 99232 ==

== ENCOUNTER → 2024-09-21 17:09 | Outpatient (BNV) | payer OTHER, SELFPAY | PROVIDERS: Admitting Provider Psychiatry & Neurology Psychiatry; Emergency Provider Emergency Medicine Emergency Medical Services; PCP Internal Medicine; Visit Provider Psychiatry & Neurology Psychiatry | DX: F20.0 Paranoid schizophrenia (principal); Z91.148 Patient's other noncompliance with medication regimen for other reason | CPT/HCPCS: 99231; 99232; 99233 ==

== ENCOUNTER 2025-05-01 20:03 | Emergency (ER) | payer OTHER, SELFPAY ==
[2025-05-01 20:17] VITALS: BP 152/96; PULSE 87; RESP 18; TEMP 36.9; O2SAT 96; BMI 29.1
--- NOTE | 2025-05-01 20:26 | ED.GENADULT ---
HPI - General Adult General Chief complaint: Psychiatric Symptoms Stated complaint: crisis Time Seen by Provider: 05/01/25 20:23 Source: patient Mode of arrival: ambulatory Limitations: no limitations History of Present Illness ED Provider: Adriana Urena NP HPI narrative: Patient is a 29-year-old male who presents emergency department for evaluation he has been experiencing increased depression and anxiety recently, admits to having suicidal ideations without any specific plan. He additionally states that he is smoking heroin and is interested in assistance with detox from this. Last use today. He denies any additional recreational drug or alcohol usage. He states that he has not been taking his medications recently, occasionally he will take hydroxyzine when he feels very anxious, states he has not taken his olanzapine in at least a few weeks. He denies homicidal ideations, denies hallucinations. Offers no physical complaints Related Data Home Medications ?Medication ?Instructions ?Recorded ?Confirmed hydroxyzine pamoate 50 mg capsule 50 mg PO TID PRN anxiety 09/21/24 05/01/25 trazodone 50 mg tablet 75 mg PO BEDTIME PRN insomnia 09/21/24 05/01/25 olanzapine 5 mg tablet 7.5 mg PO BEDTIME 05/01/25 05/01/25 Allergies Allergy/AdvReac Type Severity Reaction Status Date / Time No Known Allergies Allergy Verified 05/01/25 20:19 Review of Systems Review of Systems: Yes all other systems are reviewed and are negative PMFSH Past Medical History Attestation statement: The following information was validated with the patient. Source: old records reviewed Medical History Chronic schizophrenia with acute exacerbation Social History Social History Household Members: Family Housing: House Do you presently have visiting nurse or other home services: No Patient Tobacco Use Status: Never used Tobacco Smoked in Last 30 Days: No Second Hand Smoke Exposure: No Use of substances other than those prescribed or required for medical reasons: Yes Substance Use Type: Heroin Substance Use Frequency: Daily Last Used Substance: Hours (ago) Advance Directives: No Advance Directives Information Provided: Yes service: No Sexual orientation: Don't Know Physical Exam ED Vital Signs: Vital Signs - 24 hr 05/02/25 05:42 05/02/25 11:28 Temperature 97.7 F 97.7 F Pulse Rate 70 70 Respiratory Rate 16 16 Blood Pressure 149/99 H 149/99 H Pulse Oximetry 99 99 Oxygen Delivery Method Room Air Room Air BMI result Body Mass Index 29.1 Appearance: Alert.?Oriented to person, place and time. No acute distress.?Normal affect. Eyes: Pupils equal, round and reactive to light.? ENT: Pharynx normal.?? Neck: Normal inspection.? Neck supple.?? CVS: Heart sounds normal. Normal heart rate and rhythm.? Pulses normal.?? Respiratory: No respiratory distress.? Lung sounds clear to auscultation bilaterally?? Abdomen: Soft and non-tender. Normoactive bowel sounds. ?? Skin: Skin warm and dry.? Normal skin color.? Extremities: No lower extremity edema.? No calf ttp? Neuro: Moves all extremities spontaneously. Sensation intact bilaterally. CN II-XII intact. No focal neuro deficits. Ambulates with normal steady gait. Course Course Course Narrative: RME: 29-year-old male presents to ED seeking detox from heroin and depression. Patient has suicidal ideation but has no plan. Patient is schizophrenic but denies any auditory/visual hallucination. Labs care team consult placed. Reevaluation(s) Reevaluation #1: Time: 07:25 Date: 05/02/25 Provider: Neyda Moss, Patient in physician observation for psychiatric evaluation.? No acute events reported overnight. No current complaints. VS stable.? Patient is pending CARE team dispo. Will continue to monitor. Reevaluation #2: Time: 11:19 Date: 05/02/25 Provider: Neyda Moss DO Physician observation ended at 1119am. Patient has been cleared for discharge by the CARE team. Will follow up as at respite. Medical Decision Making Medical Decision Making MDM Narrative: Patient is a 29-year-old male with past medical history schizophrenia, anxiety/depression presenting for evaluation of increase in depression, suicidal ideations without a plan as well as requesting assistance from detox from heroin having last used earlier today as per HPI. He is calm and cooperative. Answers all questions appropriately. States he has not been taking his medications recently as per HPI. Plan to obtain serum labs for medical clearance and will refer to care team for safe disposition planning Differential Diagnosis Differential Diagnoses: The differential diagnosis associated with the presentation includes (See narrative above and below for further detail) Admission/Observation Consideration of admission/observation: Escalation of care including admission/observation considered Patient is being observed in the Emergency Department for depression, anxiety, and suicidal ideation. Observation time was started at 22:15 on 05/01/2025.?The patient is currently stable and non-toxic appearing. Observation is being initiated in the Emergency Department to allow time to help differentiate if the patient's depression and anxiety is due to Substance Induced Mood Disorder and Anxiety versus Major Depressive Disorder, Bipolar Brooke, Bipolar Depression, and Schizophrenia. The patient will receive frequent psychiatric assessments from the provider as well as from nursing staff. The patient will also be monitored for the need of PRN agitation medications such as Haldol, Ativan, and Benadryl. Consult Healthcare Provider Management of the patient was discussed with: Behavioral Health Provider (CARE team) Lab Data CBC is without leukocytosis anemia or thrombocytopenia. No electrolyte derangement. No DANIEL. Elevated T bili otherwise unremarkable LFTs consistent with prior has a benign abdominal examination no nausea/vomiting or food intolerance. Urinalysis without evidence of infection. Toxicology is positive for fentanyl as well as marijuana. 05/01/25 21:17 05/01/25 21:17 Labs: Lab Results 05/01/25 05/01/25 Range/Units 21:17 21:35 WBC 8.8 (4.8-10.8) X10*3/uL RBC 5.31 (4.60-5.80) X10*6/uL Hgb 15.3 (14.0-18.0) g/dl Hct 43.8 (42.0-52.0) % MCV 82.5 (80.0-98.0) fL MCH 28.8 (27.0-33.0) pg MCHC 34.9 (31.0-36.0) g/dl RDW 12.6 (11.0-16.0) % Plt Count 249 (160-400) X10*3/uL MPV 10.5 (9.4-12.4) fL Immature Gran % (Auto) 0.5 H (0.0-0.4) % Neut % (Auto) 57.9 (45-73) % Lymph % (Auto) 29.2 (20-40) % Mccormick % (Auto) 10.4 (2-11) % Eos % (Auto) 1.4 (0-4) % Baso % (Auto) 0.6 (0-2) % Lymph # (Auto) 2.6 (1.2-4.9) X10*3/uL M[place]ormick # (Auto) 0.9 (0.1-1.2) X10*3/uL Eos # (Auto) 0.1 (0.0-0.4) X10*3/uL Baso # (Auto) 0.1 (0.0-0.2) X10*3/uL Abs Immat Gran (auto) 0.04 H (0.00-0.03) X10*3/uL Absolute Neuts (auto) 5.1 (2.0-8.3) x10*3/uL Absolute Nucleated RBC 0.000 (0.0-0.012) X10*3/uL Nucleated RBC % (auto) 0.0 (0.0-0.2) /100WBC Sodium 138 (135-145) mmol/L Potassium 5.1 D (3.3-5.1) mmol/L Chloride 103 (96-108) mmol/L Carbon Dioxide 27 (22-29) mmol/L Anion Gap 13 (12-20) BUN 12 (9-16) mg/dL Creatinine 0.85 (0.5-1.4) mg/dL Estim Creat Clear Calc 149.3 Estimated GFR > 60 Random Glucose 92 (60-115) mg/dL Calcium 9.6 (8.4-10.2) mg/dL Total Bilirubin 2.3 H (0.0-1.0) mg/dL AST 26 (5-37) U/L ALT 20 (0-40) U/L Alkaline Phosphatase 75 (39-117) U/L Total Protein 8.3 H (6.5-8.0) g/dL Albumin 5.2 H (3.5-5.0) g/dL Urine Color Yellow Urine Appearance Clear Urine pH 6.0 (5.0-9.0) Ur Specific [place] 1.010 (1.005-1.025) Urine Protein Negative (Neg-Trace) mg/dL Urine Glucose (UA) Negative (Negative) mg/dL Urine Ketones Negative (Negative) mg/dL Urine Blood Negative (Negative) Urine Nitrite Negative (Negative) Ur Leukocyte Esterase Negative (Negative) Urine Opiates Screen Not Detected (Not Detect) Ur Buprenorphine Scrn Not Detected (Not Detect) ng/mL Ur Oxycodone Screen Not Detected (Not Detect) ng/mL Urine Methadone Screen Not Detected (Not Detect) ng/mL Urine Fentanyl Screen POSITIVE H (Not Detect) Ur Barbiturates Screen Not Detected (Not Detect) Ur Phencyclidine Scrn Not Detected (Not Detect) Ur Amphetamines Screen Not Detected (Not Detect) U Benzodiazepines Scrn Not Detected (Not Detect) Urine Cocaine Screen Not Detected (Not Detect) U Marijuana (THC) Screen POSITIVE H (Not Detect) Ethyl Alcohol 13 mg/dL External Record Review External record reviewed: Outpatient record Chronic Conditions Patient?s care impacted by: Other (See narrative above) Social Determinants Patient?s care significantly limited by Social Determinants of Health including: Alcoholism and drug addiction in family Discharge Plan Discharge Clinical Impression: Chronic schizophrenia Patient Disposition: Home, Self-Care Instructions: Schizophrenia (ED) Additional Instructions: You were seen in our Emergency Department today for treatment of a behavioral health issue. It is important after your visit that you follow up with either your behavioral health provider or a primary care doctor within 7 days.? If you have trouble finding a therapist you can reach out to [address] [phone] The National Suicide and Crisis Lifeline can be reached 7 days a week 24 hours a day.? Call 988 to speak with someone.? Return for any worsening symptoms or concerns such as thoughts of self harm or harm to others. Please call 911 if you feel your mental health is worsening.? Prescriptions: No Action olanzapine 5 mg tablet 7.5 mg PO BEDTIME trazodone 50 mg tablet 75 mg PO BEDTIME PRN (Reason: insomnia) hydroxyzine pamoate 50 mg capsule 50 mg PO TID PRN (Reason: anxiety) Interventions: [place]-Suicide Risk Severity Scale Last Done: 05/01/25 22:29 ED Discharge Assessment Last Done: 05/02/25 11:28 Discharge Date/Time: 05/02/25 11:29 Print Language: Georgian
--- NOTE | 2025-05-01 20:40 | PC.NURSE ---
Patients father: Olivier Britt [phone]
[2025-05-01 21:23] LABS: MANUAL DIFF FLAG NO
[2025-05-01 21:24] LABS: Basophils Absolute Auto 0.1 X10*3/uL (0.0-0.2); Basophils Percent Auto 0.6 % (0-2); Eosinophils Absolute Auto 0.1 X10*3/uL (0.0-0.4); Eosinophils Percent Auto 1.4 % (0-4); Hematocrit 43.8 % (42.0-52.0); Hemoglobin 15.3 g/dl (14.0-18.0); Imm Gran Abs Auto 0.04 X10*3/uL (0.00-0.03); Imm Gran Pct Auto 0.5 % (0.0-0.4); Lymphocytes Absolute Auto 2.6 X10*3/uL (1.2-4.9); Lymphocytes Percent Auto 29.2 % (20-40); Mean Corpuscular HGB Conc 34.9 g/dl (31.0-36.0); Mean Corpuscular Hemoglobin 28.8 pg (27.0-33.0); Mean Corpuscular Volume 82.5 fL (80.0-98.0); Mean Platelet Volume 10.5 fL (9.4-12.4); Monocytes Absolute Auto 0.9 X10*3/uL (0.1-1.2); Monocytes Percent Auto 10.4 % (2-11); Neutrophils Absolute Auto 5.1 x10*3/uL (2.0-8.3); Neutrophils Percent Auto 57.9 % (45-73); Platelet Count 249 X10*3/uL (160-400); Red Blood Count 5.31 X10*6/uL (4.60-5.80); Red Cell Distribution Width 12.6 % (11.0-16.0); White Blood Count 8.8 X10*3/uL (4.8-10.8)
[2025-05-01 21:42] LABS: Ethanol 13 mg/dL
[2025-05-01 21:44] LABS: Alanine Aminotransferase 20 U/L (0-40); Albumin Level 5.2 g/dL (3.5-5.0); Alkaline Phosphatase 75 U/L (39-117); Anion Gap 13 (12-20); Aspartate Amino Transferase 26 U/L (5-37); Bilirubin Total 2.3 mg/dL (0.0-1.0); Blood Urea Nitrogen 12 mg/dL (9-16); Calcium 9.6 mg/dL (8.4-10.2); Carbon Dioxide 27 mmol/L (22-29); Chloride 103 mmol/L (96-108); Creatinine Clr Calc Pharmacy 149.3; Estimated Glomerular Filt Rate > 60; Glucose Random 92 mg/dL (60-115); Potassium 5.1 mmol/L (3.3-5.1); Sodium 138 mmol/L (135-145); Total Protein 8.3 g/dL (6.5-8.0)
[2025-05-01 21:45] LABS: Appearance Urine Clear; Color Urine Yellow; Glucose Urine UA Negative (Negative); Leukocyte Esterase Urine Negative (Negative); Nitrite Urine Negative (Negative); Urine Blood Negative (Negative); Urine Ketones Negative (Negative); Urine Protein Negative (Neg-Trace)
[2025-05-01 21:52] LABS: Amphetamine Screen Urine Not Detected (Not Detect); Barbiturates, Urine Not Detected (Not Detect); Benzodiazepines Screen Urine Not Detected (Not Detect); Buprenorphine Scr Not Detected (Not Detect); Cannabinoid Screen Urine POSITIVE (Not Detect); Cocaine Screen Urine Not Detected (Not Detect); Fentanyl, urine POSITIVE (Not Detect); Methadone Screen, Urine Not Detected (Not Detect); Opiate Screen Urine Not Detected (Not Detect); Oxycodone Screen Urine Not Detected (Not Detect); Phencyclidine Screen Urine Not Detected (Not Detect)
--- NOTE | 2025-05-01 22:35 | PC.NURSE ---
Pt resting quietly on bed, requested gingerale and pt given gingerale and educated to ask for anything.
[2025-05-02 05:42] VITALS: BP 149/99; PULSE 70; RESP 16; TEMP 36.5; O2SAT 99
--- NOTE | 2025-05-02 06:01 | PC.NURSE ---
Pt noted to be walking with a steady gait. Pt slept on bed for most of the night. Pt understands to ask for assistance or if he needs anything.
--- NOTE | 2025-05-02 11:25 | MHC.CARE ---
Pt accepted to [facility] today 05/02/25.
[2025-05-02 11:28] VITALS: BP 149/99; PULSE 70; RESP 16; TEMP 36.5; O2SAT 99
== END 2025-05-02 11:29 | disposition home or self-care (01) ==
PROVIDERS: Nurse Practitioner Family; Physician Assistant; Emergency Provider Emergency Medicine
DX: F20.9 Schizophrenia, unspecified (principal); R45.851 Suicidal ideations; F32.A Depression, unspecified; F41.9 Anxiety disorder, unspecified; Z79.899 Other long term (current) drug therapy
CPT/HCPCS: 36415; 80053; 80307; 81003; 85025; 99284; S9485

== ENCOUNTER 2025-07-10 23:13 | Emergency (ER) | payer OTHER, SELFPAY ==
[2025-07-10 23:18] VITALS: BP 135/80; PULSE 97; RESP 20; TEMP 36.7; O2SAT 97
[2025-07-10 23:20] VITALS: BP 122/98; PULSE 148; O2SAT 96; BMI 32.5
--- NOTE | 2025-07-11 00:13 | ED.ALCOHOL ---
HPI - Alcohol General Chief Complaint: ETOH/Substance Use Stated Complaint: ETOH Time Seen by Provider: 07/10/25 23:24 Source: patient and EMS Mode of arrival: EMS Limitations: no limitations History of Present Illness ED Provider: Dr. Zaida Cosme HPI narrative: Patient comes to the emergency room via ambulance. Seems that earlier today, he had a verbal argument with his father at home. The father called EMS. According to the patient, he had some whiskey and twisted tea tonight because he has wanted to have something to drink. Patient denies daily alcohol use. Patient states that he has smoked a little bit of marijuana. Denies SI or HI. Patient denies making suicidal or homicidal threats. According to EMS, PD got the 1st, the patient was calm, cooperative, and patient was agreeable to come to the emergency room Related Data Home Medications ?Medication ?Instructions ?Recorded ?Confirmed hydroxyzine pamoate 50 mg capsule 50 mg PO TID PRN anxiety 09/21/24 05/01/25 trazodone 50 mg tablet 75 mg PO BEDTIME PRN insomnia 09/21/24 05/01/25 olanzapine 5 mg tablet 7.5 mg PO BEDTIME 05/01/25 05/01/25 Allergies Allergy/AdvReac Type Severity Reaction Status Date / Time No Known Allergies Allergy Verified 07/10/25 23:22 Review of Systems Review of Systems: Constitutional : No Weight loss, No Fever, No Chills, No Night Sweats, No Fatigue, No Malaise ENT/Mouth : No Hearing loss, No Ear Pain, No Nasal Congestion, No Sinus Pain, No Hoarseness, No sore throat, No Rhinorrhea, No Swallowing Difficulty Eyes: No Eye Pain, No Swelling, No Redness, No Foreign Body, No Discharge, No Vision Changes Cardiovascular : No Chest Pain, No SOB, No Dyspnea on Exertion, No Orthopnea, No Edema, No Palpitations Respiratory : No Cough, No Sputum, No Wheezing, No Smoke Exposure, No Dyspnea Gastrointestinal : No Nausea, No Vomiting, No Diarrhea, No Constipation, No abdominal Pain, No Hematochezia, No Melena Genitourinary : no irregular bleeding, No Dysuria, No Urinary Frequency, No Hematuria, No Urinary Incontinence, No Urgency, No Flank Pain, No Urinary Flow Changes, No Hesitancy Musculoskeletal : No joint pain, No Myalgias, No Joint Swelling Skin : No Skin Lesions, No rash Neuro : No Weakness, No Numbness, No Paresthesias, No Loss of Consciousness, No Dizziness, No Headache Psych : No Anxiety/Panic, No Depression, No SI/HI/AH/VH, admits to drinking alcohol today and using marijuana Heme/Lymph: No Bruising, No Bleeding,No Lymphadenopathy Endocrine : No Polyuria, No Polydipsia, No Temperature Intolerance [facility] Past Medical History Medical History Chronic schizophrenia with acute exacerbation Social History Social History Household Members: Family Housing: House Do you presently have visiting nurse or other home services: No Patient Tobacco Use Status: Never used Tobacco Second Hand Smoke Exposure: No Substance Use Type: Heroin Advance Directives: No Advance Directives Information Provided: Yes Do you have a plan to hurt others: No Plan service: No Sexual orientation: Don't Know Physical Exam ED Exam Exam: Appearance: Alert. Oriented X3. No acute distress. Eyes: Pupils equal, round and reactive to light. ENT: Pharynx normal. Neck: Normal inspection. Neck supple. No lymph nodes noted. No crepitus CVS: Normal heart rate and rhythm. Pulses normal. Normal S1 and S2 Respiratory: No respiratory distress. Breath sounds normal. No Wheezing. No rales Abdomen: Soft and nontender. No rigidity. No distention. Skin: Skin warm and dry. Normal skin color. Normal skin turgor. Extremities: No lower extremity edema. No Lacerations. No Rash Neuro: Oriented X 3. No motor deficit. No sensory deficit. Moving all extremities. No slurred speech. CN 2 through 12 grossly intact Psych: calm, cooperative, normal affect Vital Signs: Vital Signs - 24 hr 07/10/25 23:18 Temperature 98.1 F Pulse Rate 97 Respiratory Rate 20 Blood Pressure 135/80 Pulse Oximetry 97 Oxygen Delivery Method Room Air BMI result Body Mass Index 32.5 Course Course Course Narrative: Patient is calm, cooperative, denies SI or HI, admits to drinking alcohol and using marijuana. Patient denies any hallucinations. Patient has history of schizophrenia. Patient does not want any care team evaluation. Patient states that he feels well, admits that he had an argument with his father today Plan: Whenever patient has a sober ride, he may be discharged. Medical Decision Making Medical Decision Making [facility] Narrative: Patient is awake, alert and oriented x3, coherent, normal vitals Declined any blood work or any further intervention. Patient states that he feels well, admits to having an argument with his father, denies SI or HI There is no indication for section 12. Plan: Wants patient has a sober ride, he may be discharged Patient was able to get in touch with his father who agreed to pick him up. As mentioned above, patient denies SI or HI, no aggression, declined any further workup. Patient awake, alert and oriented x3, normal steady gait, coherent. Patient's father came to pick him up and is going home with him Differential Diagnosis Differential Diagnoses: The differential diagnosis associated with the presentation includes (Alcohol intoxication, THC intoxication, argument) Discharge Plan Discharge Clinical Impression: Alcoholic intoxication Patient Disposition: Home, Self-Care Additional Instructions: Please follow-up with your primary care physician tomorrow. If you have any worsening or new symptoms, please return to the emergency room or call 911 Prescriptions: No Action olanzapine 5 mg tablet 7.5 mg PO BEDTIME trazodone 50 mg tablet 75 mg PO BEDTIME PRN (Reason: insomnia) hydroxyzine pamoate 50 mg capsule 50 mg PO TID PRN (Reason: anxiety) Print Language: Mongolian
--- NOTE | 2025-07-11 01:04 | PC.NURSE ---
called father Olivier who is agreeable to pick patient up. awaiting arrival to ed.
--- NOTE | 2025-07-11 01:30 | PC.NURSE ---
Father here for patient. Ambulatory out with steady gait.
== END 2025-07-11 01:43 | disposition home or self-care (01) ==
PROVIDERS: Emergency Provider Emergency Medicine
DX: F10.129 Alcohol abuse with intoxication, unspecified (principal)
CPT/HCPCS: 99283

== ENCOUNTER 2025-10-07 20:05 | Emergency (ER) | payer OTHER, SELFPAY ==
[2025-10-07 20:16] VITALS: BP 145/95; BP 150/87; PULSE 103; PULSE 104; RESP 19; O2SAT 97; BMI 27.9
--- NOTE | 2025-10-07 20:36 | PC.NURSE ---
pt noted to be pacing and speaking to himself in garbled words. During initial assessment pt stated he is hypersexual asking to touch EDT's and RN's stomach, pt redirected and told not to touch staff or anyone else.
[2025-10-07 21:25] LABS: MANUAL DIFF FLAG NO
[2025-10-07 21:26] LABS: Hematocrit 48.7 % (42.0-52.0); Hemoglobin 16.3 g/dl (14.0-18.0); Imm Gran Abs Auto 0.06 X10*3/uL (0.00-0.03); Imm Gran Pct Auto 0.7 % (0.0-0.4); Lymphocytes Absolute Auto 1.9 X10*3/uL (1.2-4.9); Mean Corpuscular HGB Conc 33.5 g/dl (31.0-36.0); Mean Corpuscular Hemoglobin 29.2 pg (27.0-33.0); Mean Corpuscular Volume 87.1 fL (80.0-98.0); NRBC Abs Auto 0.000 X10*3/uL (0.0-0.012); NRBC Pct Auto 0.0 /100WBC (0.0-0.2); Platelet Count 258 X10*3/uL (160-400); Red Blood Count 5.59 X10*6/uL (4.60-5.80); White Blood Count 8.3 X10*3/uL (4.8-10.8)
[2025-10-07 21:27] LABS: Appearance Urine Clear; Glucose Urine UA Negative (Negative); PH 6.5 (5.0-9.0); Specific Gravity - Urine <= 1.005 (1.005-1.025)
[2025-10-07 21:37] LABS: Cannabinoid Screen Urine POSITIVE (Not Detect)
[2025-10-07 21:39] LABS: Alanine Aminotransferase 29 U/L (0-40); Albumin Level 5.0 g/dL (3.5-5.0); Alkaline Phosphatase 85 U/L (39-117); Anion Gap 17 (12-20); Aspartate Amino Transferase 23 U/L (5-37); Blood Urea Nitrogen 5 mg/dL (9-16); Calcium 10.0 mg/dL (8.4-10.2); Carbon Dioxide 23 mmol/L (22-29); Chloride 109 mmol/L (96-108); Creatinine Clr Calc Pharmacy 147.4; Estimated Glomerular Filt Rate > 60; Potassium 3.9 mmol/L (3.3-5.1); Sodium 145 mmol/L (135-145); Total Protein 8.0 g/dL (6.5-8.0)
[2025-10-07 21:43] LABS: Acetaminophen LAB < 3 mcg/mL (<30); Salicylate < 5.0 mg/dL (15-30)
[2025-10-08 06:00] VITALS: BP 161/88; PULSE 63; RESP 18; TEMP 36.9; O2SAT 98
--- NOTE | 2025-10-08 06:01 | ED.PSYCH ---
HPI - Psych General Chief Complaint: Psychiatric Symptoms Stated Complaint: psych eval,etoh Time Seen by Provider: 10/07/25 22:22 Source: patient, EMS, RN notes reviewed and old records reviewed Mode of arrival: EMS Limitations: altered mental status History of Present Illness ED Provider: Dr. Karina Fitch HPI Narrative: 29-year-old male with a history of schizophrenia presenting via EMS with reported erratic behavior. Evidently EMS was called along with police to the scene of the patient wandering in the street, acting erratically. His father reports he has a history of schizophrenia and has been off his medications. Patient admits to drinking alcohol and smoking marijuana as well as the psychedelics, [place]. He reports feeling anxious and suicidal but has no plan for action. Denies visual or auditory hallucinations. Related Data Home Medications ?Medication ?Instructions ?Recorded ?Confirmed hydroxyzine pamoate 50 mg capsule 50 mg PO TID PRN anxiety 09/21/24 10/08/25 trazodone 50 mg tablet 75 mg PO BEDTIME PRN insomnia 09/21/24 10/08/25 quetiapine 25 mg tablet 25 mg PO BID PRN Anxiety 10/08/25 10/08/25 Allergies Allergy/AdvReac Type Severity Reaction Status Date / Time No Known Allergies Allergy Verified 10/07/25 20:28 Review of Systems Review of Systems: as per HPI, full review of systems performed and negative but for the above mentioned pertinent positives and negatives. [facility] Past Medical History Medical History Chronic schizophrenia with acute exacerbation Social History Social History Household Members: Family Housing: House Do you presently have visiting nurse or other home services: No Patient Tobacco Use Status: Never used Tobacco Second Hand Smoke Exposure: No Substance Use Type: Heroin Advance Directives: No Advance Directives Information Provided: No service: No Sexual orientation: Don't Know Physical Exam Exam: Exam: GENERAL: Appears intoxicated, GCS 13, eyes open to voice, slurred speech, no acute distress. SKIN: Normal skin color for ethnicity, warm, dry, no rashes noted. HEENT: Normocephalic, atraumatic, no stridor, posterior oropharynx nonerythematous, dentition intact, EOMI, pupils are pinpoint bilaterally, reactive to light. NECK: Soft, supple, no step-offs, no deformities, no lymphadenopathy. CHEST: Heart regular tachycardia, no murmurs, symmetric chest rise and fall. PULMONARY: Clear to auscultation bilaterally, diminished at the bases, no labored breathing, no wheezes/rhales/rhonchi. ABDOMINAL: Soft, nondistended, positive bowel sounds in all quadrants. : Deferred. MUSCULOSKELETAL: Normal tone, full range of motion, no deformities, no peripheral edema. NEURO: GCS 13, eyes open to voice, slightly slurred speech, CN II through XII intact, equal strength and sensation bilateral upper and lower extremities, no focal neurologic deficits. PSYCHIATRIC: Flat affect, poor eye contact. Vital Signs: Vital Signs: Last Vital Signs Temp 98.5 F 10/08/25 06:00 Pulse 63 10/08/25 06:00 Resp 18 10/08/25 06:00 BP 161/88 H 10/08/25 06:00 Pulse Ox 98 10/08/25 06:00 O2 Del Method Room Air 10/08/25 06:00 BMI result Body Mass Index 27.9 Course Course Course Narrative: Time: 06:31 Date: 10/08/25 Provider: Neyda Moss, Patient in physician observation for psychiatric evaluation.? No acute events reported overnight. No current complaints. VS stable.?pending CARE team evaluation. Will continue to monitor. Reevaluation(s) Reevaluation #1: Time: 09:40 Date: 10/08/25 Provider: Neyda Moss DO Physician observation ended at 948 Patient has been cleared for discharge by the CARE team. Will follow up as an outpatient. Medical Decision Making Medical Decision Making [facility] Narrative: Patient presents with psychologic complaints. Differential diagnosis includes suicidal ideations, homicidal ideations, depression, anxiety, mood disorder, decompensated mental illnesses such as schizophrenia or bipolar disorder, medication noncompliance, among many others. Medical clearance protocol was initiated. Differential Diagnosis Differential Diagnoses: The differential diagnosis associated with the presentation includes (As above) Admission/Observation Consideration of admission/observation: Escalation of care including admission/observation considered Consult Healthcare Provider Management of the patient was discussed with: Behavioral Health Provider Lab Data [facility] Lab Attestation statement: I reviewed the patient's lab results. 10/07/25 21:17 10/07/25 21:17 Labs: Lab Results 10/07/25 Range/Units 21:17 WBC 8.3 (4.8-10.8) X10*3/uL RBC 5.59 (4.60-5.80) X10*6/uL Hgb 16.3 (14.0-18.0) g/dl Hct 48.7 (42.0-52.0) % MCV 87.1 (80.0-98.0) fL MCH 29.2 (27.0-33.0) pg MCHC 33.5 (31.0-36.0) g/dl RDW 13.7 (11.0-16.0) % Plt Count 258 (160-400) X10*3/uL MPV 11.4 (9.4-12.4) fL Immature Gran % (Auto) 0.7 H (0.0-0.4) % Neut % (Auto) 66.1 (45-73) % Lymph % (Auto) 22.4 (20-40) % Sully % (Auto) 9.3 (2-11) % Eos % (Auto) 1.0 (0-4) % Baso % (Auto) 0.5 (0-2) % Lymph # (Auto) 1.9 (1.2-4.9) X10*3/uL Sully # (Auto) 0.8 (0.1-1.2) X10*3/uL Eos # (Auto) 0.1 (0.0-0.4) X10*3/uL Baso # (Auto) 0.0 (0.0-0.2) X10*3/uL Abs Immat Gran (auto) 0.06 H (0.00-0.03) X10*3/uL Absolute Neuts (auto) 5.5 (2.0-8.3) x10*3/uL Absolute Nucleated RBC 0.000 (0.0-0.012) X10*3/uL Nucleated RBC % (auto) 0.0 (0.0-0.2) /100WBC Sodium 145 (135-145) mmol/L Potassium 3.9 D (3.3-5.1) mmol/L Chloride 109 H (96-108) mmol/L Carbon Dioxide 23 (22-29) mmol/L Anion Gap 17 (12-20) BUN 5 L (9-16) mg/dL Creatinine 0.83 (0.5-1.4) mg/dL Estim Creat Clear Calc 147.4 Estimated GFR > 60 Random Glucose 101 (60-115) mg/dL Calcium 10.0 (8.4-10.2) mg/dL Total Bilirubin 0.9 (0.0-1.0) mg/dL AST 23 (5-37) U/L ALT 29 (0-40) U/L Alkaline Phosphatase 85 (39-117) U/L Total Protein 8.0 (6.5-8.0) g/dL Albumin 5.0 (3.5-5.0) g/dL Urine Color Yellow Urine Appearance Clear Urine pH 6.5 (5.0-9.0) Ur Specific [place] <= 1.005 (1.005-1.025) Urine Protein Negative (Neg-Trace) mg/dL Urine Glucose (UA) Negative (Negative) mg/dL Urine Ketones Negative (Negative) mg/dL Urine Blood Negative (Negative) Urine Nitrite Negative (Negative) Ur Leukocyte Esterase Negative (Negative) Salicylates < 5.0 L (15-30) mg/dL Urine Opiates Screen Not Detected (Not Detect) Ur Buprenorphine Scrn Not Detected (Not Detect) ng/mL Ur Oxycodone Screen Not Detected (Not Detect) ng/mL Urine Methadone Screen Not Detected (Not Detect) ng/mL Urine Fentanyl Screen Not Detected (Not Detect) Acetaminophen < 3 (<30) mcg/mL Ur Barbiturates Screen Not Detected (Not Detect) Ur Phencyclidine Scrn Not Detected (Not Detect) Ur Amphetamines Screen Not Detected (Not Detect) U Benzodiazepines Scrn Not Detected (Not Detect) Urine Cocaine Screen Not Detected (Not Detect) U Marijuana (THC) Screen POSITIVE H (Not Detect) Ethyl Alcohol 234 mg/dL Independent Historian Clinical information obtained from an independent historian. History obtained from or confirmed by: Parent and EMS External Record Review External record reviewed: Inpatient record Chronic Conditions Patient?s care impacted by: Other (Schizophrenia) Social Determinants Patient?s care significantly limited by Social Determinants of Health including: Other Social Determinant of Health Discharge Plan Discharge Clinical Impression: Polysubstance use disorder Acute alcohol intoxication Qualifiers: Complication of substance-induced condition: with unspecified complication Qualified Code(s): F10.929 - Alcohol use, unspecified with intoxication, unspecified Patient Disposition: Home, Self-Care Instructions: Abuse of Alcohol (ED), Polysubstance Use Disorder (ED) Additional Instructions: Alcohol use disorder You were seen in the Emergency Department today for treatment of alcohol use disorder.? You may have been given medications to help with your withdrawal symptoms.? Please do not drink alcohol with them. This is very dangerous and can cause respiratory depression or other adverse reactions depending on the medication. If you would like to cut down or stop your alcohol use please consider calling our outpatient Addiction Treatment office:? [facility] [[email or web address]] ([id number]) [address] [place] [address] [address] You have also been given a list of treatment providers in the area that can assist as well.? If you experience seizures, vomiting blood, black stools, falls, severe headache, chest pain, fevers, trouble breathing, hallucinations or any other concerns you need to call 911 or seek immediate care. Please stay hydrated. You were seen in our Emergency Department today for treatment of a behavioral health issue. It is important after your visit that you follow up with either your behavioral health provider or a primary care doctor within 7 days.? If you have trouble finding a therapist you can reach out to [address] [phone] The National Suicide and Crisis Lifeline can be reached 7 days a week 24 hours a day.? Call 988 to speak with someone.? Return for any worsening symptoms or concerns such as thoughts of self harm or harm to others. Please call 911 if you feel your mental health is worsening.? Prescriptions: No Action quetiapine 25 mg tablet 25 mg PO BID PRN (Reason: Anxiety) trazodone 50 mg tablet 75 mg PO BEDTIME PRN (Reason: insomnia) hydroxyzine pamoate 50 mg capsule 50 mg PO TID PRN (Reason: anxiety) Interventions: [place]-Suicide Risk Severity Scale Last Done: 10/07/25 20:28 Print Language: Salvadorean
--- OUTSIDE RECORDS SUMMARY | 2025-10-08 07:45 | XMS_ITS | Clinical Summary ---
Author Organization [facility] ity Address [address] [place] [address] Care Team Providers Care Weaver [employer]oom Name Role Phone Unavailable Primary Care Provider Unavailabl e Social History Tobacco Use Types Packs/Day Years Used Date Smoking Tobacco: Never Assessed Sex and Gender Information Value Date Recorded Sex Assigned at Not on file Legal Sex Male 1:31 PM EDT Gender Identity Not on file Sexual Orientation Not on file Plan of Treatment Health Maintenance Due Date Last Done Comments DTaP,Tdap,and Td Vaccines (1 - Tdap) 2013 Hepatitis B Vaccines (1 of 3 - 19+ 3-dose series) 2013 HPV Vaccines (1 - 3-dose SCD M series) 2021 HIV Screening 06/13/2024 Hepatitis C Screening 06/13/2024 Social Influencers of Health Screening 06/13/2024 Depression Screening 11/21/2024 COVID-19 Vaccine (1 - 2024-2 6 season) 2025 Influenza Vaccine (#1) 2025 RSV Immunization Adult Patie nts (1 - 1-dose 75+ series) 2069 HIB Vaccines Aged Out No longer eligi ble based on patient's age to complete this topic Hepatitis A Vaccines Aged Out No long er eligible based on patient's age to complete this topic IPV Vaccines Aged Out No longer eligi ble based on patient's age to complete this topic MMR Vaccines Aged Out No longer eligi ble based on patient's age to complete this topic Meningococcal ACWY Vaccine Aged Out N o longer eligible based on patient's age to complete this topic Meningococcal B Vaccine Aged Out No l onger eligible based on patient's age to complete this topic Pneumococcal Vaccine: Pediat rics (0 to 5 Years) and At-Risk Patients (6 to 49 Years) Aged Out No longer eligible b ased on patient's age to complete this topic RSV Immunization Patients Un debbie 20 months Aged Out No longer eligible b ased on patient's age to complete this topic Varicella Vaccines Aged Out No longer eligible based on patient's age to complete this topic
--- NOTE | 2025-10-08 08:52 | PC.NURSE ---
Assumed care, report received. Pt is awake, calm and cooperative. He eats breakfast and sits on his bed. He is vague when asked questions, he admits to inconsistent use of medications. He denies SI/HI/AVH
--- NOTE | 2025-10-08 09:42 | MHC.CARE ---
Pt does not meet the criteria for a higher level of care and declined services for substance use. Pt will D/C home. ED provider in agreement.
== END 2025-10-08 09:51 | disposition home or self-care (01) ==
PROVIDERS: Emergency Provider Emergency Medicine
DX: F10.129 Alcohol abuse with intoxication, unspecified (principal); Y90.7 Blood alcohol level of 200-239 mg/100 ml; R45.851 Suicidal ideations; F41.9 Anxiety disorder, unspecified; F12.90 Cannabis use, unspecified, uncomplicated; Z51.81 Encounter for therapeutic drug level monitoring; Z79.899 Other long term (current) drug therapy
CPT/HCPCS: 36415; 80053; 80143; 80179; 80307; 81003; 85025; 99284; S9485